=== PATIENT | male | born 1945 | race Caucasian/White ===

== ENCOUNTER 2019-09-29 00:27 | Day surgery (SDC) | payer MEDICARE, SELFPAY ==
[2019-09-17 14:16] VITALS: BMI 25.2
[2019-09-29] VITALS (7 sets, daily range): BP systolic 79–143; BP diastolic 43–109; PULSE 57–80; RESP 18; TEMP 36.2; O2SAT 97–100
[2019-09-29] MEDS: LACTATED RINGERS 1,000 ML 150 ML IV CONT (12:35)
--- NOTE | 2019-09-29 12:43 | WPDANESEPPF ---
Anes - Initial Pre Proc Eval Procedure: Operation Date: 09/29/19 13:00 Proposed Procedures p Esophagogastroduodenoscopy& Screening Colonoscopy - Javier Jason MD Date/Time: 09/29/19 12:43 Surgeon: Javier Jason MD Pre Op Diagnosis: Gerd,Diarrhea, Neoplasm Screening Patient Data Age: 73 Gender: M Height: 1.78 m Weight: 72.1 kg Last Vital Signs Temp 36.2 C L 09/29/19 12:02 Pulse 80 09/29/19 12:02 Resp 18 09/29/19 12:02 BP 143/109 H 09/29/19 12:02 Pulse Ox 99 09/29/19 12:02 Allergies Allergy/AdvReac Type Severity Reaction Status Date / Time erythromycin base Allergy Unknown Abdominal Verified 09/29/19 12:04 discomfort iodine Allergy Unknown Skin Verified 09/29/19 12:04 irritation iohexol Allergy Unknown Hives Verified 09/29/19 12:04 [From contrast - CT, X-RAY] Penicillins Allergy Unknown Skin Verified 09/29/19 12:04 irritation Home Medications Medication Instructions Recorded Confirmed Type azelastine 0.15 % (205.5 mcg) 1 spray NASAL BID ml 08/14/19 09/17/19 History nasal spray dabigatran etexilate 150 mg capsule 150 mg PO BID 08/14/19 09/29/19 History esomeprazole magnesium 40 mg 40 mg PO DAILY 08/14/19 09/17/19 History capsule,delayed release fluticasone propionate 50 1 spray NASAL BID 08/14/19 09/29/19 History mcg/actuation nasal spray,suspension metoprolol succinate 25 mg 25 mg PO DAILY 08/14/19 09/17/19 History tablet,extended release 24 hr pravastatin 40 mg tablet 40 mg PO DAILY 08/14/19 09/17/19 History sacubitril 24 mg-valsartan 26 mg 1 tablet PO BID 08/14/19 09/17/19 History tablet cetirizine 10 mg tablet 5 mg PO DAILY PRN 08/18/19 09/17/19 History Other Studies: echo 05/2018: afib, rate 99. ef 40%, stress negative for inducible ischemia Patient hx anesthesia problems: none Family hx anesthesia problems: none PMFSH Past Medical History Medical History (Updated 09/29/19 @ 12:46 by Roel Reis MD) Afib Cancer Basal cell -face, leg and arm CHF (congestive heart failure) Chronic systolic CHF (congestive heart failure) Complex sleep apnea syndrome Cough Diarrhea GERD (gastroesophageal reflux disease) Hypertension Mucus in stool PAC (premature atrial contraction) PAF (paroxysmal atrial fibrillation) Surgical History Surgical History H/O hernia repair History of cataract removal with insertion of prosthetic lens Social History Social History Smoking status: Never smoker Second hand tobacco smoke exposure: No Alcohol intake: former Substance use: never Substance use type: does not use Gender identity (if verbalized by the patient): Male Anes - Eval Final PreProcedure Day of Procedure 09/29/19 12:43 Patient weight: normal Heart: regular rate and rhythm Lungs: clear to auscultation and normal air movement Airway: Mallampati scale class II Neurological: alert and oriented Last oral intake: >/= 8 hours ASA classification: IV Emergent: no Anesthetic plan: proceed Anesthesia type and monitoring: general GIVS Informed Consent: The patient's anesthetic plan and its attendant risks and benefits were discussed with the patient/family/POA. Questions were solicited and answers provided to the satisfaction of the patient/family/POA.
--- NOTE | 2019-09-29 13:21 | WPDHPUPDATE1 ---
History and Physical Update Update Date/Time: 09/29/19 13:21 History and Physical has been reviewed, including an updated exam of the patient. There are NO changes in the patient's condition. Risks, benefits, and alternatives have been discussed and questions answered. Patient agrees to proceed with procedure.
--- NOTE | 2019-09-29 15:20 | SUR.PHASEII ---
1415 pt brought to pos-op bp low amarjit shaw at bedside-remains with pt giving meds. 1425 bp stable now, report recieved
== END 2019-09-29 15:25 | disposition home or self-care (01) ==
PROVIDERS: PCP Family Medicine; Visit Provider Internal Medicine Gastroenterology
PROC: 0DJ08ZZ Inspection of Upper Intestinal Tract, Via Natural or Artificial Opening Endoscopic (ICD-10-PCS; CPT 43235; principal; 2019-09-29 13:00)
DX: K52.9 Noninfective gastroenteritis and colitis, unspecified (principal); K63.5 Polyp of colon; K57.30 Diverticulosis of large intestine without perforation or abscess without bleeding; K64.8 Other hemorrhoids; K64.4 Residual hemorrhoidal skin tags; K29.50 Unspecified chronic gastritis without bleeding; I48.0 Paroxysmal atrial fibrillation; I11.0 Hypertensive heart disease with heart failure; I50.22 Chronic systolic (congestive) heart failure; G47.39 Other sleep apnea; K21.9 Gastro-esophageal reflux disease without esophagitis; I49.1 Atrial premature depolarization; Z79.01 Long term (current) use of anticoagulants
CPT/HCPCS: 45380; 45385; 88305; J2704; J7120

== ENCOUNTER 2019-11-17 13:24 | Outpatient (RCR) | payer SELFPAY | END 2020-06-09 14:22 | disposition home or self-care (01) | LOC: ANHCPRIII 13:24 | PROVIDERS: PCP Family Medicine; Visit Provider Internal Medicine Cardiovascular Disease | DX: I48.91 Unspecified atrial fibrillation (principal) | CPT/HCPCS: 99199 ==

== ENCOUNTER 2019-12-15 11:02 | Outpatient (CLI) | payer MEDICARE, SELFPAY ==
--- NOTE | ~2019-12-15 | XR_ITS ---
EXAMINATION: XR knee LT min 4V DATE: 12/15/2019 11:24 INDICATION: Left knee pain TECHNIQUE: Four views of the left knee were obtained. COMPARISON: None. FINDINGS: Alignment is normal. No fracture or osteochondral lesion. There is mild tricompartmental os teoarthritis characterized by tiny marginal osteophytes in medial compartmental narrowing. A moderate sized joint effusion is present. Soft tissues are unremarkable. IMPRESSION: 1. Mild osteoarthritis with moderate size joint effusion. Reviewed, dictated and finalized at location B.
== END 2019-12-15 11:03 | disposition home or self-care (01) ==
PROVIDERS: PCP Family Medicine; Visit Provider Family Medicine
DX: M17.11 Unilateral primary osteoarthritis, right knee (principal); M25.461 Effusion, right knee
CPT/HCPCS: 73564

== ENCOUNTER 2019-12-22 09:05 | Outpatient (CLI) | payer MEDICARE, SELFPAY ==
--- NOTE | ~2019-12-22 | MR_ITS ---
EXAMINATION: MR knee LT wo con DATE: 12/22/2019 10:20 INDICATION: Left knee pain TECHNIQUE: Magnetic resonance imaging (MRI) of the left knee was performed without intravenous contra st. Sequences included coronal PD-weighted FSE, coronal PD-weighted FS FSE, sagittal T2-weighted FSE , sagittal PD-weighted FS FSE and axial PD weighted fat saturated FSE. COMPARISON: Left knee radiographs dated 12/15/2019 FINDINGS: Medial compartment: Complex tear of the medial meniscus with decreased size and macerated appearance of the posterior hor n with a displaced meniscal flap extending cephalad from the body of the medial meniscus. Additional frayed appearing meniscal flap extending anteromedially from the posterior root of the medial meniscu s. There is extensive full and near full-thickness chondral ulceration with underlying subarticular e iglesia involving significant portion of the anterior to central weightbearing medial femoral condyle. P artial thickness cartilage loss with smooth chondral surface throughout the medial tibial plateau. Mo re severe full/near full-thickness cartilage loss with underlying subarticular edema at the medial as pect of the medial tibial plateau. Partial thickness cartilage loss with relatively smooth chondral s urface and without degenerative some reticular changes at the posterior weightbearing medial femoral condyle. Lateral compartment: Longitudinal horizontal tear of the body of the lateral meniscus which extends to the inferior articu lar surface of the inner third posteriorly and crosses the free edge to involve the superior articula r surface more anteriorly. Articular cartilage is normal. Patellofemoral compartment: Small region of deep chondral ulceration and fissuring with underlying subarticular edema along the p osterior margin of the lateral patellar facet. Remainder of the cartilage in the patellofemoral paula rtment appears relatively preserved. Ligaments and tendons: Anterior and posterior cruciate ligaments are normal. The fibular collateral ligament complex is norm al. There is fluid signal extending along the margins of the otherwise normal-appearing medial collat eral ligament most likely reactive related to the adjacent meniscal tear although differential would include acute low-grade sprain. The extensor mechanism is normal. The visualized medial and lateral h amstring tendons as well as the iliotibial band are normal. Fluid: Moderate-sized right knee joint effusion. Suprapatellar plical band is present. Mild synovitis in the suprapatellar pouch as well as along the posterior margin of Hoffa's fat pad. No loose osteochondral bodies identified. Additional synovitis within a small Gonzalez's cyst. Osseous/other: Bone alignment is normal. No fracture or pathologic marrow replacing process. Subcutaneous varicosities along the medial aspect of the knee. IMPRESSION: 1. Complex medial meniscal tear with moderate osteoarthritis with extensive high-grade chondromalacia in the medial compartment. 2. Longitudinal horizontal tear of the lateral meniscus. 3. Small region of high-grade chondromalacia along the inferior margin of the lateral patellar facet. 4. Likely reactive moderate sized knee joint effusion. 5. Small Gonzalez's cyst. 6. Fluid signal along the otherwise normal-appearing medial collateral ligament most likely reactive edema related to the adjacent medial meniscal tear however differential would include low-grade sprai n if there has been recent trauma. Reviewed, dictated and finalized at location A. IMPRESSION: 1. Complex medial meniscal tear with moderate osteoarthritis with extensive hig h-grade chondromalacia in the medial compartment. 2. Longitudinal horizontal tear of the lateral meniscus.
== END 2019-12-22 09:06 | disposition home or self-care (01) ==
LOC: ANHIMG 09:12
PROVIDERS: PCP Family Medicine; Visit Provider Family Medicine
DX: M25.562 Pain in left knee (principal); M23.52 Chronic instability of knee, left knee; S83.232A Complex tear of medial meniscus, current injury, left knee, initial encounter; M17.12 Unilateral primary osteoarthritis, left knee; M94.262 Chondromalacia, left knee; S83.282A Other tear of lateral meniscus, current injury, left knee, initial encounter; M25.462 Effusion, left knee; M71.22 Synovial cyst of popliteal space [Baker], left knee
CPT/HCPCS: 73721

== ENCOUNTER 2020-06-23 06:55 | Outpatient (CLI) | payer MEDICARE, SELFPAY ==
--- NOTE | ~2020-06-23 | MR_ITS ---
EXAMINATION: MR brain/brain stem wo con DATE: 06/23/2020 07:59 INDICATION: Unspecified nystagmus. Dizziness. Diplopia. TECHNIQUE: Magnetic resonance imaging (MRI) of the brain and brainstem was performed without intraven ous contrast. Sequences included sagittal and axial T1-weighted FSE, axial diffusion-weighted FS EPI, axial T2*-weighted GRE, axial T2-weighted FLAIR Propeller, and axial T2-weighted Propeller. Apparent diffusion coefficient (ADC) maps were created. COMPARISON: None. FINDINGS: There are scattered areas of nonspecific increased T2-weighted signal intensity in the cere bral white matter and cerebellar white matter. There is an area of cystic encephalomalacia in the rig ht frontal lobe deep white matter. There is no intracranial hemorrhage, acute infarction, or abnormal intracranial mass lesion. The ventricles are normal in size. There are likely changes of ocular lens replacement surgeries. There is mucosal thickening in the paranasal sinuses. The mastoid air cells a re normal. IMPRESSION: 1. Area of cystic encephalomalacia in the right frontal lobe deep white matter. 2. Moderate nonspecific cerebral and cerebellar white matter disease, which likely represents chronic small vessel ischemic disease. Reviewed, dictated and finalized at location A. IMPRESSION: 1. Area of cystic encephalomalacia in the right frontal lobe deep white matter. 2. Moderate nonspecific cerebral and cerebellar white matter disease, which lik stefany represents chronic small vessel ischemic disease.
== END 2020-06-23 06:56 | disposition home or self-care (01) ==
PROVIDERS: PCP Family Medicine; Visit Provider Family Medicine
DX: H55.00 Unspecified nystagmus (principal); R42 Dizziness and giddiness; G93.89 Other specified disorders of brain; R90.82 White matter disease, unspecified
CPT/HCPCS: 70551

== ENCOUNTER 2020-08-30 13:54 | Emergency (ER) | payer MEDICARE, SELFPAY | END 2020-08-30 14:00 | disposition left against medical advice (07) | LOC: EXPTROY 13:59 | PROVIDERS: Emergency Provider Nurse Practitioner; PCP Family Medicine | DX: Z53.21 Procedure and treatment not carried out due to patient leaving prior to being seen by health care provider (principal) | CPT/HCPCS: 99199 ==

== ENCOUNTER 2020-09-29 14:39 | Outpatient (CLI) | payer MEDICARE, SELFPAY ==
--- NOTE | ~2020-09-29 | XR_ITS ---
EXAMINATION: XR chest 2V DATE: 09/29/2020 15:14 INDICATION: Abnormal findings on diagnostic imaging. TECHNIQUE: Frontal and lateral views of the chest were obtained. COMPARISON: Chest 2 views 01/21/2019 FINDINGS: There is mild scarring at the lung apices. No pleural effusion or pneumothorax. The heart s ize is normal. IMPRESSION: 1. Mild scarring at the lung apices. Reviewed, dictated and finalized at location A. ER BENCH
== END 2020-09-29 14:40 | disposition home or self-care (01) ==
PROVIDERS: PCP Family Medicine; Visit Provider Family Medicine
DX: E78.2 Mixed hyperlipidemia (principal); R93.89 Abnormal findings on diagnostic imaging of other specified body structures; I50.22 Chronic systolic (congestive) heart failure; I11.9 Hypertensive heart disease without heart failure; I48.0 Paroxysmal atrial fibrillation; N40.1 Benign prostatic hyperplasia with lower urinary tract symptoms; K21.9 Gastro-esophageal reflux disease without esophagitis; Z11.59 Encounter for screening for other viral diseases; Z79.899 Other long term (current) drug therapy; R92.8 Other abnormal and inconclusive findings on diagnostic imaging of breast
CPT/HCPCS: 71046

== ENCOUNTER → 2021-03-20 07:55 | Outpatient (CLI) | payer MEDICARE, SELFPAY ==
--- NOTE | ~2021-03-20 | MR_ITS ---
EXAMINATION: MR knee RT wo con DATE: 03/20/2021 08:37 INDICATION: Generalized right knee pain and swelling TECHNIQUE: Magnetic resonance imaging (MRI) of the right knee was performed without intravenous contr ast. Sequences included coronal PD-weighted FSE, coronal PD-weighted FS FSE, sagittal T2-weighted FS E, sagittal PD-weighted FS FSE and axial PD weighted fat saturated FSE. COMPARISON: Right knee radiographs dated 01/09/2021 FINDINGS: Medial compartment: Complex medial meniscal tear which includes a longitudinal tear extending obliquely from the peripher y to the inferior articular surface at the junction of the medial and peripheral thirds of the bi report developer ior horn and posterior body of the medial meniscus. There is also a small displaced meniscal flap whi ch extends anteriorly from the region of the posterior horn likely arising from the more anterior inf erior surface of the posterior horn. Partial-thickness cartilage loss with smooth chondral surface al jesse the peripheral margins of the medial tibial plateau. Lateral compartment: Small complex tear at the body of the lateral meniscus which includes a longitudinal horizontal tear extending to the cephalad articular surface near the free edge as well as a small vertically longitud inal component near the free edge. Small region of deep chondral fissuring at the lateral tibial plat eau underlying the posterior horn of the meniscus. Partial-thickness cartilage loss with smooth chond ral surface along the posterior weightbearing lateral femoral condyle. Patellofemoral compartment: Deep chondral ulceration in places appearing full-thickness with underlying mild cortical irregularit y and prominent subarticular edema at the cephalad aspect of the lateral trochlea and caudal and late ral two thirds of the lateral patellar facet. The medial trochlea and medial patellar facet are myla l. Ligaments and tendons: Anterior and posterior cruciate ligaments are normal. The medial collateral ligament and fibular ignacia ateral ligament complex are normal. The extensor mechanism is normal. The visualized medial and later al hamstring tendons as well as the iliotibial band are normal. Fluid: Moderate-sized right knee joint effusion. Small ovoid likely loose chondral bodies in the recess ante rior and posterior to the intercondylar notch comment each measuring approximately 9-10 mm in maximal length. Osseous/other: There is mild lateral patellar tilt and subluxation. No fracture or pathologic marrow replacing proce ss. Small intraosseous ganglion cyst at the anterior aspect of the tibia near the footplate of the an terior cruciate ligament. IMPRESSION: 1. Complex tears of the medial and lateral menisci. 2. Tricompartmental osteoarthritis, moderate severity with high-grade chondromalacia at the lateral s raissa of the patellofemoral compartment and small amount of moderate grade chondromalacia in the medial and lateral compartments. 3. Moderate-sized right knee joint effusion. Reviewed, dictated and finalized at location A. IMPRESSION: 1. Complex tears of the medial and lateral menisci. 2. Tricompartmental osteoarthritis, moderate severity with high-grade chondroma lacia at the lateral side of the patellofemoral compartment and small amount of moderate grade chondromalacia in the medial and lateral compartments. 3. Moderate-sized right knee joint effusion.
== END ==
PROVIDERS: PCP Family Medicine; Visit Provider Nurse Practitioner Family
DX: M25.561 Pain in right knee (principal); M17.11 Unilateral primary osteoarthritis, right knee; S83.271A Complex tear of lateral meniscus, current injury, right knee, initial encounter; S83.231A Complex tear of medial meniscus, current injury, right knee, initial encounter; M94.261 Chondromalacia, right knee; M25.461 Effusion, right knee
CPT/HCPCS: 73721

== ENCOUNTER → 2021-05-03 12:47 | Outpatient (CLI) | payer MEDICARE, SELFPAY ==
--- NOTE | ~2021-05-03 | CT_ITS ---
EXAMINATION: CT abdomen pelvis wo/w con DATE: 05/03/2021 13:42 INDICATION: Microscopic hematuria. TECHNIQUE: Computed tomography (CT) of the abdomen and pelvis was performed without and with intraven ous contrast using a total of 130 mL Omnipaque-350 intravenous contrast with a double-bolus technique for simultaneous opacification of the renal parenchyma and renal collecting system. Automated exposu re control and iterative reconstruction technique were employed. The dose-length product was 1403.34 mGy-cm. COMPARISON: None FINDINGS: The visualized portions of the lung bases demonstrate mild atelectasis and mild chronic lung disease. No pleural effusion. The heart size is normal. No pericardial effusion. There is a 13 mm cyst in the liver. The gallbladder, spleen, pancreas, and adrenal glands are normal. There is a 2.0 cm cyst in r ight kidney. There are 2.0 cm and 5.1 cm enhancing masses in right kidney. There is a 2.4 cm enhancin g mass in left kidney. The ureters are well opacified and are normal. The bladder is not well distend ed. The prostate is mildly enlarged. There is a right inguinal hernia containing fat. There is divert iculosis of the colon without evidence of diverticulitis. There are no dilated loops of bowel. The ap pendix is normal. There are no pathologically enlarged lymph nodes. There is no free intraperitoneal fluid. There is mild thoracic spondylosis and moderate lumbar spondylosis. There is a chronic left L5 pars defect. IMPRESSION: 1. Two enhancing right kidney masses and an enhancing left kidney mass, consistent with renal cell ca rcinoma. Reviewed, dictated and finalized at location A. IMPRESSION: 1. Two enhancing right kidney masses and an enhancing left kidney mass, consist ent with renal cell carcinoma.
[2021-05-03 13:17] LABS: Estimated Glomerular Filt Rate 59
== END ==
PROVIDERS: PCP Family Medicine; Visit Provider Urology
DX: R31.29 Other microscopic hematuria (principal); N28.89 Other specified disorders of kidney and ureter; K40.90 Unilateral inguinal hernia, without obstruction or gangrene, not specified as recurrent; K57.30 Diverticulosis of large intestine without perforation or abscess without bleeding; M47.815 Spondylosis without myelopathy or radiculopathy, thoracolumbar region
CPT/HCPCS: 74178; Q9967

== ENCOUNTER 2021-07-10 16:08 | Emergency (ER) | payer MEDICARE, SELFPAY ==
--- NOTE | ~2021-07-10 | XR_ITS ---
EXAMINATION: XR chest 2V EXAM DATE: 07/10/2021 17:31 INDICATION: Cough and congestion. TECHNIQUE: Frontal and lateral projections of the chest obtained and reviewed. Comparison is made to prior examination from 09/29/2020. FINDINGS: The lungs are clear. There are no pleural effusions. The cardiomediastinal silhouette is within normal limits. There is no pneumothorax suspected. The bones and soft tissues are unremarkab le. IMPRESSION: No acute cardiopulmonary findings. Reviewed, dictated and finalized at location A. MANAGER
[2021-07-10 16:28] VITALS: BP 111/65; PULSE 65; RESP 18; TEMP 37.1; O2SAT 97
--- NOTE | 2021-07-10 17:37 | ED.URI ---
HPI - URI/Sore Throat General Chief Complaint: Upper Respiratory Infection Stated Complaint: cough/sneezing/congestion Time Seen by Provider: 07/10/21 17:37 Source: patient, RN notes reviewed and old records reviewed Mode of arrival: ambulatory Limitations: no limitations History of Present Illness HPI Narrative: 75 year old male who presents to [facility] care with complaints of one week duration of cough, nasal congestion with expectoration of greenish yellow mucous at times with frequent sneezing.Patient states that he is concerned because of his history of CHF and pneumonia and doesn't want to get down ill. Patient reports that he has been using nasal saline and Debbie for his sinus congestion and drainage, reports some wheezing noted with his cough but denies any feelings of shortness of breath. Patient has had COVID vaccinations and booster. MD elicited complaint: cough, rhinorrhea and nasal congestion Pertinent past history: pneumonia and other (CHF) Onset (ago): week(s) (1) Related Data Home Medications Medication Instructions Recorded Confirmed dabigatran etexilate 150 mg capsule 150 mg PO BID 08/14/19 07/10/21 metoprolol succinate 25 mg 25 mg PO DAILY 08/14/19 07/10/21 tablet,extended release 24 hr pravastatin 40 mg tablet 40 mg PO DAILY 08/14/19 07/10/21 dronedarone 400 mg tablet 400 mg PO BID tablet 02/16/20 07/10/21 cetirizine 10 mg tablet 10 mg PO DAILY 02/16/21 07/10/21 cholecalciferol (vitamin D3) 1,250 1,250 mcg PO WEEKLY 02/16/21 07/10/21 mcg (50,000 unit) capsule Allergies Allergy/AdvReac Type Severity Reaction Status Date / Time erythromycin base Allergy Intermediate Abdominal Verified 07/10/21 18:23 discomfort iodine Allergy Mild Skin Verified 07/10/21 18:23 irritation iohexol Allergy Mild Hives Verified 07/10/21 18:23 [From contrast - CT, X-RAY] Penicillins Allergy Mild Skin Verified 07/10/21 18:23 irritation Review of Systems Review of Systems: CONSTITUTIONAL: Denies fever, chills, or sweats. EYES: Denies visual changes, redness, or discharge. ENT:Positive for rhinorrhea, congestion,no sore throat, or otalgia. CARDIOVASCULAR: Denies chest pain, palpitations, or edema. RESPIRATORY:Positive for cough denies dyspnea. GASTROINTESTINAL: Denies abdominal pain, nausea, vomiting, or diarrhea. GENITOURINARY: Denies dysuria or hematuria. SKIN: Denies rash or itching. MUSCULOSKELETAL: Denies back pain,no acute joint pain, or myalgia. NEUROLOGIC: Denies headache, numbness, or weakness. PSYCHIATRIC: Denies anxiety or depression. 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 Diarrhea Effusion, left knee GERD (gastroesophageal reflux disease) Hypertension Left knee DJD Left knee DJD Mucus in stool PAC (premature atrial contraction) PAF (paroxysmal atrial fibrillation) Primary osteoarthritis of right knee Right knee DJD Right knee pain Vertigo Surgical History Surgical History H/O hernia repair History of cataract removal with insertion of prosthetic lens 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
== END 2021-07-10 18:10 | disposition home or self-care (01) ==
PROVIDERS: Emergency Provider Registered Nurse; PCP Family Medicine
DX: J40 Bronchitis, not specified as acute or chronic (principal); Z85.828 Personal history of other malignant neoplasm of skin; I11.0 Hypertensive heart disease with heart failure; I50.9 Heart failure, unspecified; M17.0 Bilateral primary osteoarthritis of knee; K21.9 Gastro-esophageal reflux disease without esophagitis; I48.0 Paroxysmal atrial fibrillation; Z98.49 Cataract extraction status, unspecified eye; Z96.1 Presence of intraocular lens
CPT/HCPCS: 71046; 99213; G0463

== ENCOUNTER 2021-07-17 12:31 | Emergency (ER) | payer MEDICARE, SELFPAY ==
[2021-07-17 12:37] VITALS: BP 109/68; PULSE 64; RESP 16; TEMP 36.8; O2SAT 97
--- NOTE | 2021-07-17 12:37 | ED.UPPEXIN ---
HPI - Extremity Injury (Upper) General Chief Complaint: Wound/Laceration Stated Complaint: rt hand swollen Time Seen by Provider: 07/17/21 12:38 Source: patient and RN notes reviewed History of Present Illness HPI narrative: Patient is a 75-year-old male who presents the urgent care with complaints of right hand swelling and pain. Patient states that he was hunting this past weekend and noticed the swelling to the right hand. Patient believes it is infected . Patient states that this has happened in the past. Patient denies of any known injury to the hand. Patient is right-hand dominant. Denies of any fever, chills, nausea, vomiting. Patient has not taken anything [id number] for his symptoms. No other acute complaints. No acute distress noted. Patient aware of the plan of care. Some parts of this dictation were generated by voice recognition software and may contain typographical and/or grammatical inaccuracies. Related Data Home Medications Medication Instructions Recorded Confirmed metoprolol succinate 25 mg 25 mg PO DAILY 08/14/19 07/17/21 tablet,extended release 24 hr pravastatin 40 mg tablet 40 mg PO DAILY 08/14/19 07/17/21 cetirizine 10 mg tablet 10 mg PO DAILY 02/16/21 07/17/21 cholecalciferol (vitamin D3) 1,250 1,250 mcg PO WEEKLY 02/16/21 07/17/21 mcg (50,000 unit) capsule dabigatran etexilate [Pradaxa] 150 mg PO DAILY 07/17/21 07/17/21 dronedarone [Multaq] 400 mg PO DAILY 07/17/21 07/17/21 sacubitril-valsartan [Entresto] 1 tablet PO DAILY 07/17/21 07/17/21 Allergies Allergy/AdvReac Type Severity Reaction Status Date / Time erythromycin base Allergy Intermediate Abdominal Verified 07/17/21 12:44 discomfort iodine Allergy Mild Skin Verified 07/17/21 12:44 irritation iohexol Allergy Mild Hives Verified 07/17/21 12:44 [From contrast - CT, X-RAY] Penicillins Allergy Mild Skin Verified 07/17/21 12:44 irritation Review of Systems Review of Systems: CONSTITUTIONAL: Denies fever, chills, or sweats. EYES: Denies visual changes, redness, or discharge. ENT: Denies rhinorrhea, congestion, sore throat, or otalgia. CARDIOVASCULAR: Denies chest pain, palpitations, or edema. RESPIRATORY: Denies cough or dyspnea. GASTROINTESTINAL: Denies abdominal pain, nausea, vomiting, or diarrhea. GENITOURINARY: Denies dysuria or hematuria. SKIN: Denies rash or itching. MUSCULOSKELETAL: Reports of pain and swelling to the right hand NEUROLOGIC: Denies headache, numbness, or weakness. All other systems reviewed are negative, except as documented in HPI. 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 Diarrhea Effusion, left knee GERD (gastroesophageal reflux disease) Hypertension Left knee DJD Left knee DJD Mucus in stool PAC (premature atrial contraction) PAF (paroxysmal atrial fibrillation) Primary osteoarthritis of right knee Right knee DJD Right knee pain Vertigo Surgical History Surgical History H/O hernia repair History of cataract removal with insertion of prosthetic lens 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
== END 2021-07-17 13:09 | disposition home or self-care (01) ==
PROVIDERS: Emergency Provider Nurse Practitioner Family; PCP Family Medicine
DX: M19.90 Unspecified osteoarthritis, unspecified site (principal); I48.91 Unspecified atrial fibrillation; Z85.828 Personal history of other malignant neoplasm of skin; I11.0 Hypertensive heart disease with heart failure; I50.9 Heart failure, unspecified; G47.39 Other sleep apnea; M17.0 Bilateral primary osteoarthritis of knee; K21.9 Gastro-esophageal reflux disease without esophagitis; I48.0 Paroxysmal atrial fibrillation
CPT/HCPCS: 99213; G0463

== ENCOUNTER 2022-03-19 13:32 | Outpatient (CLI) | payer MEDICARE, SELFPAY ==
--- NOTE | ~2022-03-19 | CT_ITS ---
EXAMINATION:CT diagnostic chest wo con DATE: 03/19/2022 14:18 INDICATION: Chronic cough. TECHNIQUE: Computed tomography (CT) of the chest was performed without intravenous contrast. Automate d exposure control and iterative reconstruction technique were employed. The dose-length product (DLP ) was 172.43 mGy-cm. COMPARISON: CT abdomen and pelvis 05/03/2021 FINDINGS: There is mild scarring at the lung apices. There is mild bronchiectasis in the inferior urmila gs. There is septal thickening in the inferior lungs bilaterally associated with mild groundglass opa cities. No honeycombing. No pleural effusion. The heart size is normal. No pericardial effusion. Ther e is a 1.5 cm cyst in the liver. There is mild thoracic spondylosis. There is mild chronic anterior w edging of multiple vertebral bodies. IMPRESSION: 1. Mild chronic interstitial lung disease in a pattern of nonspecific interstitial pneumonia (NSIP). Reviewed, dictated and finalized at location A. IMPRESSION: 1. Mild chronic interstitial lung disease in a pattern of nonspecific interstit ial pneumonia (NSIP).
== END 2022-03-19 13:33 | disposition home or self-care (01) ==
PROVIDERS: PCP Family Medicine; Visit Provider Family Medicine
DX: R05.3 Chronic cough (principal); K76.89 Other specified diseases of liver; M47.814 Spondylosis without myelopathy or radiculopathy, thoracic region; J84.89 Other specified interstitial pulmonary diseases
CPT/HCPCS: 71250

== ENCOUNTER 2022-03-26 10:22 | Outpatient (CLI) | payer MEDICARE, SELFPAY ==
--- NOTE | 2022-04-02 14:53 | WPDPFTINT ---
PFT Procedure Performed PFT Procedure Performed Spirometry with Pre/Post Bronchodilator Plethysmography (Lung Vol) Diffusing Cap (DLCO) Flow Vol Loop PFT Interpretation This is a pulmonary function test with pre and post-bronchodilator spirometry, plethysmography and diffusing capacity. The test was performed and results interpreted in accordance with the 2019 and 2005 ATS/ERS Task Force guidelines respectively using the Global Lung Function Initiative-2012 reference equations. Patient demonstrated good effort and cooperation. Reproducibility criteria were met. The quality of the pre bronchodilator spirometry maneuver was Grade B and post bronchodilator spirometry maneuver was Grade A. Findings: Spirometry: There is decreased maximal expiratory airflow at low lung volumes with a concave expiratory flow tracing. The contour the inspiratory flow tracing is normal. The pre bronchodilator FVC is 4.52 L, 111% predicted. The pre bronchodilator FEV1 is 2.89 L, 96% predicted. The pre bronchodilator FEV1: FVC ratio is 64%. The post bronchodilator FVC is 4.59 L, representing 1% increase. The post bronchodilator FEV1 is 2.84 L, representing a 2% decrease. The post bronchodilator FEV1: FVC ratio 62%. Plethysmography: The total lung capacity 7.26 L, 100% predicted. The functional residual capacity is 4.02 L, 103% predicted. The residual volume is 2.74 L, 103% predicted. Diffusion capacity: The diffusing capacity unadjusted for hemoglobin and carboxyhemoglobin is 21.3, 86% predicted. The diffusing capacity adjusted for alveolar volume is 3.58, 99% predicted. Impression: There is a mild obstructive abnormality with a normal FEV1 and without significant improvement after inhaling a single dose of albuterol. The lung volumes are normal. The diffusing capacity is normal. There are no prior studies for comparison
== END 2022-03-26 10:23 | disposition home or self-care (01) ==
PROVIDERS: PCP Family Medicine; Visit Provider Family Medicine
DX: R05.3 Chronic cough (principal); R94.2 Abnormal results of pulmonary function studies
CPT/HCPCS: 94060; 94726; 94729

== ENCOUNTER 2022-04-06 09:03 | Outpatient (CLI) | payer MEDICARE, SELFPAY ==
[2022-04-06 20:10] LABS: Alanine Aminotransferase 18 U/L (6-50); Albumin Level 4.2 g/dL (3.5-5.1); Alkaline Phosphatase 54 U/L (38-126); Anion Gap 9 mmol/L (8-16); Aspartate Amino Transferase 36 U/L (17-59); Bilirubin,Total 0.8 mg/dL (0.2-1.3); Blood Urea Nitrogen 15 mg/dL (9-20); Calcium 8.9 mg/dL (8.4-10.2); Carbon Dioxide 28 mmol/L (22-30); Chloride 104 mmol/L (98-107); Cholesterol 156 mg/dL (0-200); Estimated Glomerular Filt Rate > 60; Glucose 92 mg/dL (65-110); HDL Direct 33 mg/dL; Potassium 4.4 mmol/L (3.4-5.0); Sodium 141 mmol/L (137-145); Triglycerides 143 mg/dL (<150)
[2022-04-06 20:22] LABS: LDL Cholesterol Direct 91 mg/dL
[2022-04-06 20:36] LABS: Prostate Specific Antigen 2.1 ng/mL (< OR = 4.0)
[2022-04-06 21:04] LABS: Basophils Absolute Auto 0.1 K/mm3 (0.0-0.1); Basophils Percent Auto 1.2 % (0.2-1.2); Eosinophils Absolute Auto 0.3 K/mm3 (0-0.3); Eosinophils Percent Auto 6.3 % (0-4.4); Hemoglobin 13.7 g/dL (14.0-18.0); Immature Granulocyte Absolute 0.01 K/mm3 (0.00-0.031); Immature Granulocyte Percent A 0.2 % (0-0.5); Lymphocytes Absolute Auto 1.44 K/mm3 (0.9-3.2); Lymphocytes Percent Auto 33.5 % (18.3-44.2); Mean Corpuscular HGB Conc 32.6 g/dl (32-36); Mean Corpuscular Hemoglobin 31.5 pg (26-34); Mean Corpuscular Volume 96.6 fl (80-100); Mean Platelet Volume 10.1 fl (7.4-10.4); Monocytes Absolute Auto 0.5 K/mm3 (0.1-0.6); Monocytes Percent Auto 11.2 % (2.6-8.5); Neutrophils Absolute Auto 2.1 K/mm3 (1.3-6.7); Neutrophils Percent Auto 47.6 % (45.5-73.1); Platelet Count Result 222 k/mm3 (150-375); Red Blood Count 4.35 M/mm3 (4.6-6.20); Red Cell Distribution Width 13.3 % (11.5-14.5); White Blood Count 4.3 K/mm3 (4.5-10.0)
== END 2022-04-06 09:04 | disposition home or self-care (01) ==
LOC: ANHGOSHLAB 09:04
PROVIDERS: PCP Family Medicine; Visit Provider Physician Assistant
DX: Z12.5 Encounter for screening for malignant neoplasm of prostate (principal); I35.0 Nonrheumatic aortic (valve) stenosis; E78.2 Mixed hyperlipidemia; I11.9 Hypertensive heart disease without heart failure; Z79.899 Other long term (current) drug therapy
CPT/HCPCS: 36415; 80053; 80061; 84153; 84443; 85025; G0103

== ENCOUNTER 2022-04-11 15:16 | Outpatient (NON) | payer MEDICARE, SELFPAY ==
[2022-04-11 20:08] LABS: IFOB Positive Control Positive; Immunochemical Fecal Occult Bl Negative (N)
== END 2022-04-11 15:17 | disposition home or self-care (01) ==
LOC: ANHGOSHLAB 15:17
PROVIDERS: PCP Family Medicine; Visit Provider Physician Assistant
DX: D64.9 Anemia, unspecified (principal)
CPT/HCPCS: 82274

== ENCOUNTER 2022-04-25 17:22 | Emergency (ER) | payer MEDICARE, SELFPAY ==
--- NOTE | 2022-04-25 17:25 | ED.SKABFB ---
HPI - Skin/Abscess/Foreign Bdy General Chief complaint: Skin/Abscess/Foreign Body Stated complaint: ITCHING RASH Time Seen by Provider: 04/25/22 17:23 Source: patient Mode of arrival: ambulatory Limitations: no limitations History of Present Illness HPI narrative: Mr. Iniguez is a 76-year-old male patient presenting to the clinic today with complaints of a itchy rash. He reports Related Data Home Medications Medication Instructions Recorded Confirmed metoprolol succinate 25 mg 25 mg PO DAILY 08/14/19 04/25/22 tablet,extended release 24 hr pravastatin 40 mg tablet 40 mg PO DAILY 08/14/19 04/25/22 cetirizine 10 mg tablet (24Hour 10 mg PO DAILY 02/16/21 04/25/22 Allergy) cholecalciferol (vitamin D3) 1,250 1,250 mcg PO WEEKLY 02/16/21 04/25/22 mcg (50,000 unit) capsule dabigatran etexilate 150 mg 150 mg PO BID 02/16/22 04/25/22 capsule (Pradaxa) dronedarone 400 mg tablet (Multaq) 400 mg PO BID 02/16/22 04/25/22 sacubitril 24 mg-valsartan 26 mg 0.5 tablet PO BID 02/16/22 04/25/22 tablet (Entresto) tadalafil 20 mg tablet 20 mg PO DAILY PRN Erectile 04/03/22 04/25/22 Dysfunction Allergies Allergy/AdvReac Type Severity Reaction Status Date / Time erythromycin base Allergy Intermediate Abdominal Verified 04/25/22 17:39 discomfort iodine Allergy Mild Skin Verified 04/25/22 17:39 irritation iohexol Allergy Mild Hives Verified 04/25/22 17:39 [From contrast - CT, X-RAY] Penicillins Allergy Mild Skin Verified 04/25/22 17:39 irritation Review of Systems Review of Systems: Pertinent positives per HPI. Patient denies any fever, chills, headache, visual changes, dizziness, cough, runny nose, sore throat, shortness of breath, chest pain, palpitations, nausea, vomiting, diarrhea, constipation, abdominal pain, or any urinary issues. 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 Renal oncocytoma Family History Family History Sibling Family history of transient ischemic attacks Family history of pulmonary embolism Mother Family history of congestive heart failure Social History Social History Smoking status: Never smoker Second hand tobacco smoke exposure: Yes Alcohol intake: former Alcohol use details: Stopped in 2017 Substance use: never Substance use type: does not use Gender identity (if verbalized by the patient): Male Comments At the time of my signature, I reviewed and agree with the nursing past medical, surgical, social, and family history. There is no relevant family history pertinent to the patient complaint. Exam Narrative: General: Well-developed, well nourished, in no apparent distress Head: Normocephalic, atraumatic. Cardio: Regular rate and rhythm, s1 and s2 normal, no murmur appreciated. Resp: Clear to auscultation bilaterally, no rhonchi, rales, wheezing or rubs. Integumentary: [place], warm, and dry, intact without lesion, no rashes. Course Course Emergency Course: Portions of this record may have been create
[2022-04-25 17:30] VITALS: BP 123/82; PULSE 63; RESP 16; TEMP 36.7; O2SAT 98
[2022-04-25] MEDS: TETANUS,DIPHTHERIA,AC PERTUSSIS ADULT (0.5 ML) BOOSTRIX IM (17:56)
== END 2022-04-25 18:05 | disposition home or self-care (01) ==
PROVIDERS: Emergency Provider Nurse Practitioner Family; PCP Family Medicine
DX: L23.7 Allergic contact dermatitis due to plants, except food (principal); I11.0 Hypertensive heart disease with heart failure; I50.9 Heart failure, unspecified; K21.9 Gastro-esophageal reflux disease without esophagitis; M17.0 Bilateral primary osteoarthritis of knee; I48.0 Paroxysmal atrial fibrillation; Z85.828 Personal history of other malignant neoplasm of skin; Z98.49 Cataract extraction status, unspecified eye; Z96.1 Presence of intraocular lens
CPT/HCPCS: 90471; 90715; 99213; G0463

== ENCOUNTER 2022-05-29 10:20 | Emergency (ER) | payer MEDICARE, SELFPAY ==
[2022-05-29 10:31] VITALS: BP 114/77; PULSE 73; RESP 16; TEMP 36.9; O2SAT 98
--- NOTE | 2022-05-29 10:35 | ED.ABDPAIN ---
HPI - Abdominal Pain General Chief Complaint: Abdominal Pain Stated Complaint: groin pain rt side Time Seen by Provider: 05/29/22 10:35 Source: patient and RN notes reviewed Mode of arrival: ambulatory Limitations: no limitations History of Present Illness HPI narrative: 76-year-old male presented for complaint of right inguinal pain for 1 week. Endorses pain is intermittent, described as dull and pressure, worse with sneezing, coughing, or walking. Pain radiates to penis. He endorses holding the site during any of these activities. He denies known injury/trauma. Reports lifting a trailer about 2 weeks prior to onset. Currently denies swelling/mass, bruising or discoloration to the site. Endorses chronic diarrhea. Denies decreased appetite, nausea, vomiting, hematochezia, melena, urinary complaints, fever or chills. He has not taken anything for pain. He has a history of left inguinal hernia repair in . PCP is out of town. Hx Afib, CHF, JOHANNE. Related Data Home Medications Medication Instructions Recorded Confirmed metoprolol succinate 25 mg 25 mg PO DAILY 08/14/19 04/25/22 tablet,extended release 24 hr pravastatin 40 mg tablet 40 mg PO DAILY 08/14/19 04/25/22 cetirizine 10 mg tablet (24Hour 10 mg PO DAILY 02/16/21 04/25/22 Allergy) cholecalciferol (vitamin D3) 1,250 1,250 mcg PO WEEKLY 02/16/21 04/25/22 mcg (50,000 unit) capsule dabigatran etexilate 150 mg 150 mg PO BID 02/16/22 04/25/22 capsule (Pradaxa) dronedarone 400 mg tablet (Multaq) 400 mg PO BID 02/16/22 04/25/22 sacubitril 24 mg-valsartan 26 mg 0.5 tablet PO BID 02/16/22 04/25/22 tablet (Entresto) tadalafil 20 mg tablet 20 mg PO DAILY PRN Erectile 04/03/22 04/25/22 Dysfunction Allergies Allergy/AdvReac Type Severity Reaction Status Date / Time erythromycin base Allergy Intermediate Abdominal Verified 04/25/22 17:39 discomfort iodine Allergy Mild Skin Verified 04/25/22 17:39 irritation iohexol Allergy Mild Hives Verified 04/25/22 17:39 [From contrast - CT, X-RAY] Penicillins Allergy Mild Skin Verified 04/25/22 17:39 irritation Review of Systems Review of Systems: CONSTITUTIONAL: Denies body aches, fever, chills ENT: Denies rhinorrhea, congestion CARDIOVASCULAR: Denies chest pain, palpitations, or edema. RESPIRATORY: Denies cough or dyspnea. GASTROINTESTINAL: Endorses right lower abdominal pain, Denies nausea, vomiting, diarrhea. GENITOURINARY: Denies dysuria, hematuria, or CVA tenderness. SKIN: Denies rash, itching, or wounds. MUSCULOSKELETAL: Denies joint pain, or myalgia. NEUROLOGIC: Denies headache, numbness, tingling, or weakness. 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 Diarrhea Effusion, left knee GERD (gastroesophageal reflux disease) Hypertension Left knee DJD Left knee DJD Mucus in stool PAC (premature atrial contraction) PAF (paroxysmal atrial fibrillation) Primary osteoarthritis of right knee Right knee DJD Right knee pain Vertigo Surgical History Surgical History H/O hernia repair History of cataract removal with insertion of prosthetic lens 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 Family History Family History Sibling Family history of transient ischemic attacks Family history of pulmonary embolism Mother Family history of congestive heart failure Social History Social History Smoking status: [place]
== END 2022-05-29 11:02 | disposition home or self-care (01) ==
PROVIDERS: Emergency Provider Nurse Practitioner Family; PCP Family Medicine
DX: R10.31 Right lower quadrant pain (principal); I11.0 Hypertensive heart disease with heart failure; I50.9 Heart failure, unspecified; K21.9 Gastro-esophageal reflux disease without esophagitis; M17.0 Bilateral primary osteoarthritis of knee; I48.0 Paroxysmal atrial fibrillation; Z85.828 Personal history of other malignant neoplasm of skin
CPT/HCPCS: 99211; G0463

== ENCOUNTER 2022-05-29 13:30 | Emergency (ER) | payer MEDICARE, SELFPAY ==
--- NOTE | ~2022-05-29 | CT_ITS ---
EXAMINATION: CT abdomen pelvis wo con DATE: 05/29/2022 14:37 INDICATION: Right groin and flank pain. TECHNIQUE: Computed tomography (CT) of the abdomen and pelvis was performed without intravenous contr ast. Automated exposure control and iterative reconstruction technique were employed. The dose-length product was 372.29 mGy-cm. COMPARISON: CT abdomen and pelvis 05/03/2021 FINDINGS: The visualized portions of the lung bases demonstrate mild atelectasis and mild bronchiecta sis. No pleural effusion. The heart size is normal. No pericardial effusion. There is an 18 mm cyst i n the liver. The gallbladder, spleen, pancreas, and adrenal glands are normal. There is a 5.3 cm mass in right kidney that enhanced on the prior CT. There is a 2.2 cm mass in right kidney that enhanced on the prior CT. There is a 2.5 cm cyst in right kidney. There is a 2.7 cm mass in left kidney that e nhanced on the prior CT. There is a right inguinal hernia containing nonobstructed small bowel. The p rostate is mildly enlarged. There is diverticulosis of the colon without evidence of diverticulitis. The appendix is normal. There are no pathologically enlarged lymph nodes. There is no free intraperit butler fluid. There is lumbar levoscoliosis and moderate spondylosis. IMPRESSION: 1. Right inguinal hernia containing nonobstructed small bowel. 2. Two right kidney masses and a left kidney mass that enhanced on the prior CT, consistent with jacqueline l cell carcinoma. Reviewed, dictated and finalized at location A. IMPRESSION: 1. Right inguinal hernia containing nonobstructed small bowel. 2. Two right kidney masses and a left kidney mass that enhanced on the prior CT , consistent with renal cell carcinoma.
--- NOTE | ~2022-05-29 | XR_ITS ---
EXAMINATION: XR toe 2nd RT min 2V INDICATION: Right second toe pain, initial encounter TECHNIQUE: Three views of the right second digit are obtained. COMPARISON: None available FINDINGS: There is a small acute, traumatic, closed, oblique intra-articular fracture at the dorsal b ase of the second middle phalanx. No additional fracture is identified. Soft tissue swelling is prese nt in the second toe. There is mild osteoarthritis of multiple interphalangeal joints as well as at t he first metatarsophalangeal joint. IMPRESSION: 1. Small acute intra-articular fracture at the dorsal base of the second middle phalanx. Reviewed, dictated and finalized at location A.
[2022-05-29 13:54] VITALS: BP 117/88; PULSE 60; RESP 16; TEMP 36.6; O2SAT 99
[2022-05-29 15:04] LABS: Appearance Urine Slightly Cloudy (Clear); Bilirubin Urine Negative (Negative); Blood Urine Negative (Negative); Color Urine Yellow (Yellow); Glucose Urine UA Negative (Negative); Ketones Urine Negative (Negative); Leukocyte Esterase Ur Trace LEU/UL (Negative); Nitrate Urine Negative (Negative); Protein Urine Negative (Negative); Urobilinogen Urine 0.2 mg/dL (<2.0)
[2022-05-29 15:12] LABS: Mucus Urine Rare /lpf; RBC Urine 0-2 /hpf (0-2); WBC Urine 0-3 /hpf
[2022-05-29 15:15] LABS: Add Urine Microscopic? YES; Anion Gap 13 mmol/L (8-16); Blood Urea Nitrogen 12 mg/dL (9-20); Calcium 8.9 mg/dL (8.4-10.2); Carbon Dioxide 27 mmol/L (22-30); Chloride 102 mmol/L (98-107); Estimated CRCL calculation 61 ml/min; Estimated Glomerular Filt Rate > 60; Glucose 90 mg/dL (65-110); Potassium 3.7 mmol/L (3.4-5.0); Sodium 142 mmol/L (137-145)
--- NOTE | 2022-05-29 15:32 | ED.GENADULT ---
HPI - General Adult General Chief complaint: Urogenital-Male Stated complaint: right inguinal pain - sent [facility] Time Seen by Provider: 05/29/22 13:46 History of Present Illness HPI narrative: Patient is a 76-year-old male who presents ER with right groin pain. Ongoing over the last couple weeks. Radiates towards his back. No difficulty with passing gas or stooling. Patient does report he felt like he passed some grains in his urine that may be similar to kidney stones. No nausea or vomiting or sweats. Patient also reports history of renal mass that he reports was biopsied in the past and was negative for malignancy despite having other physicians recommend he have the masses excised. Related Data Home Medications Medication Instructions Recorded Confirmed metoprolol succinate 25 mg 25 mg PO DAILY 08/14/19 04/25/22 tablet,extended release 24 hr pravastatin 40 mg tablet 40 mg PO DAILY 08/14/19 04/25/22 cetirizine 10 mg tablet (24Hour 10 mg PO DAILY 02/16/21 04/25/22 Allergy) cholecalciferol (vitamin D3) 1,250 1,250 mcg PO WEEKLY 02/16/21 04/25/22 mcg (50,000 unit) capsule dabigatran etexilate 150 mg 150 mg PO BID 02/16/22 04/25/22 capsule (Pradaxa) dronedarone 400 mg tablet (Multaq) 400 mg PO BID 02/16/22 04/25/22 sacubitril 24 mg-valsartan 26 mg 0.5 tablet PO BID 02/16/22 04/25/22 tablet (Entresto) tadalafil 20 mg tablet 20 mg PO DAILY PRN Erectile 04/03/22 04/25/22 Dysfunction Allergies Allergy/AdvReac Type Severity Reaction Status Date / Time erythromycin base Allergy Intermediate Abdominal Verified 05/29/22 13:56 discomfort iodine Allergy Mild Skin Verified 05/29/22 13:56 irritation iohexol Allergy Mild Hives Verified 05/29/22 13:56 [From contrast - CT, X-RAY] Penicillins Allergy Mild Skin Verified 05/29/22 13:56 irritation Review of Systems Review of Systems: All systems reviewed & are unremarkable except as noted in HPI and below Constitutional: Constitutional: Denies chills and Denies fever(s) ENT: Denies nasal congestion and Denies sore throat Respiratory: Respiratory: Denies cough and Denies dyspnea Gastrointestinal: Gastrointestinal: Reports abdominal pain, Denies diarrhea, Denies nausea and Denies vomiting Genitourinary: Genitourinary: Denies urinary frequency PMFSH Past Medical History Medical History Afib Allergic rhinitis Cancer Basal cell -face, leg and arm CHF (congestive heart failure) Chronic low back pain without sciatica Chronic systolic CHF (congestive heart failure) Complex sleep apnea syndrome Cough 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 Diarrhea Effusion, left knee GERD (gastroesophageal reflux disease) Hypertension Left knee DJD Left knee DJD Mucus in stool PAC (premature atrial contraction) PAF (paroxysmal atrial fibrillation) Primary osteoarthritis of right knee Right knee DJD Right knee pain Vertigo Surgical History Surgical History H/O hernia repair History of cataract removal with insertion of prosthetic lens 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 Family History Family History Sibling Family history of transient ischemic attacks Family history of pulmonary embolism Mother Family history of congestive heart failure Social History Social History Smoking status: Never smoker Second hand tobacco smoke exposure: Yes Alcohol intake: former Alcohol use details: Stopped in 2017 Substance use: never Substance use type: does not use Gender identity (if verbalized by the patient): Male Exam Narrative: GENERAL: Well-appearing, well-nourished, and in no acute distress. HEAD: Normocephalic, atraumatic. CHEST: Clear to auscultation. No resp
[2022-05-29 15:40] LABS: Basophils Absolute Auto 0.1 K/mm3 (0.0-0.1); Eosinophils Absolute Auto 0.1 K/mm3 (0-0.3); Eosinophils Percent Auto 1.5 % (0-4.4); Hematocrit 42.7 % (42.0-52.0); Immature Granulocyte Absolute 0.01 K/mm3 (0.00-0.031); Immature Granulocyte Percent A 0.2 % (0-0.5); Lymphocytes Absolute Auto 1.15 K/mm3 (0.9-3.2); Lymphocytes Percent Auto 24.1 % (18.3-44.2); Mean Corpuscular HGB Conc 32.8 g/dl (32-36); Mean Corpuscular Hemoglobin 31.7 pg (26-34); Mean Corpuscular Volume 96.6 fl (80-100); Monocytes Absolute Auto 0.5 K/mm3 (0.1-0.6); Monocytes Percent Auto 10.9 % (2.6-8.5); Neutrophils Percent Auto 62.3 % (45.5-73.1); Platelet Count Result 238 k/mm3 (150-375); Red Blood Count 4.42 M/mm3 (4.6-6.20); Red Cell Distribution Width 13.2 % (11.5-14.5); White Blood Count 4.8 K/mm3 (4.5-10.0)
[2022-05-29 16:07] VITALS: BP 148/84; PULSE 98; RESP 18; O2SAT 98
== END 2022-05-29 16:08 | disposition home or self-care (01) ==
PROVIDERS: Emergency Provider Emergency Medicine; PCP Family Medicine
DX: K40.90 Unilateral inguinal hernia, without obstruction or gangrene, not specified as recurrent (principal); N28.89 Other specified disorders of kidney and ureter; S92.521A Displaced fracture of middle phalanx of right lesser toe(s), initial encounter for closed fracture; I48.0 Paroxysmal atrial fibrillation; I50.22 Chronic systolic (congestive) heart failure; G47.31 Primary central sleep apnea; K21.9 Gastro-esophageal reflux disease without esophagitis; M17.0 Bilateral primary osteoarthritis of knee; Z85.828 Personal history of other malignant neoplasm of skin; Z98.49 Cataract extraction status, unspecified eye; Z96.1 Presence of intraocular lens; Z77.22 Contact with and (suspected) exposure to environmental tobacco smoke (acute) (chronic); X58.XXXA Exposure to other specified factors, initial encounter
CPT/HCPCS: 36415; 73660; 74176; 80048; 81001; 85025; 99284

== ENCOUNTER 2022-06-28 10:29 | Outpatient (CLI) | payer MEDICARE, SELFPAY ==
--- NOTE | 2022-06-28 10:51 | ECG_ITS ---
Measurements Intervals [place] Rate: 69 P: 46 IN: 164 QRS: 12 QRSD: 102 T: 41 QT: 409 QTc: 440 Interpretive Statements SINUS RHYTHM SIGNIFICANT BASELINE ARTIFACT COMPARED TO ECG 01/21/2019 03:54:28 SINUS RHYTHM NOW PRESENT Electronically Signed On 06-28-2022 14:33:20 CDT by Cristofer Echeverria M.D.
[2022-06-28 11:36] LABS: INR 1.4; Prothrombin Time 16.4 Seconds (11.1-14.7)
[2022-06-28 11:37] LABS: Partial Thromboplastin Time 44.4 SECONDS (22.3-36.8)
[2022-06-28 11:42] LABS: Anion Gap 10 mmol/L (8-16); Blood Urea Nitrogen 13 mg/dL (9-20); Calcium 8.8 mg/dL (8.4-10.2); Carbon Dioxide 28 mmol/L (22-30); Chloride 105 mmol/L (98-107); Estimated Glomerular Filt Rate > 60; Glucose 82 mg/dL (65-110); Potassium 4.2 mmol/L (3.4-5.0); Sodium 143 mmol/L (137-145)
== END 2022-06-28 10:30 | disposition home or self-care (01) ==
LOC: ANHSURGERY 10:33
PROVIDERS: Anesthesiology; PCP Family Medicine; Visit Provider Surgery
DX: Z01.818 Encounter for other preprocedural examination (principal); K40.90 Unilateral inguinal hernia, without obstruction or gangrene, not specified as recurrent; N28.9 Disorder of kidney and ureter, unspecified; I48.91 Unspecified atrial fibrillation
CPT/HCPCS: 36415; 80048; 85610; 85730; 86850; 86900; 86901; 93005

== ENCOUNTER 2022-07-04 00:21 | Day surgery (SDC) | payer MEDICARE, SELFPAY ==
[2022-06-25 10:40] VITALS: BMI 22.6
--- NOTE | 2022-06-25 11:14 | PC.NURSE ---
PRE-OP INSTRUCTIONS, PLEASE READ CAREFULLY Report to the Outpatient Waiting Room, entrance under the green pavilion located off [facility], at time _0730_ on date _07/04/22_. Planned Procedure Time: _0930_. Time changes happen often and if your time is changed the preop area will call you the afternoon before. - You and your visitor will be asked to self-screen and do not enter if you have any COVID symptoms. - We encourage only one visitor and NO visitors under age 16 are allowed at this time. Your visitor will receive communication by the phone number that is given day of service. - The patient visitor is requested to social distance or may leave the building when not with patient due to restrictions. - A mask is required within the hospital. Patients may have clear liquids (water, carbonated beverages, clear teas, apple juice) until 3 hours prior to surgery (0630 AM) with a maximum of 20 ounces. - No food from midnight until time of surgery Take the following medications with a SIP of water the morning of surgery: _DRONEDARONE, METOPROLOL, SACUBITRIL, BREO INHALER, NASAL SPRAY & TYLENOL IF NEEDED_ Medications to discontinue DR. BELTRAN - _PRADAXA 5 DAYS PRIOR TO SURGERY, Date to take last dose 06/28/22_ Please no make-up, nail italian, hairspray, perfume, deodorant, or body powder the day of surgery. No jewelry (including any body piercings) or valuables the day of surgery, leave them at home. Please take a shower or bath the night before, or the morning of, surgery with an antibacterial soap. Wear comfortable, loose fitting clothing. - Jewelry must be removed prior to entering the operating room. Rings and piercings that are not removed may be cut off. - The hospital will not accept responsibility for valuables. - Please leave all valuables, including medications, at home the day of surgery. If you are going home after surgery, a licensed chuck wagon driver must drive you home. - NO public transportation without another adult. - We recommend that an adult stay with you for 24 hours following discharge. - We also recommend that you do not drive, make important decision, drink alcoholic beverages, or take any drugs that were not prescribed by your health care provider for at least 24 hours after your discharge time. Follow any additional instructions given to you from your surgeon. HIBICLENS SHOWER AM OF SURGERY If you or anyone in your household have experienced Covid symptoms in the past week, please notify your surgeon or the nurse liaison at the phone number below for possible testing. Telephone instructions given to ____PT and asked if any additional questions and then verbalized understanding. Patient advised to call surgeon office or pre surgery nurse liaison [phone] if any additional questions.
[2022-07-04] VITALS (13 sets, daily range): BP systolic 109–134; BP diastolic 66–79; PULSE 54–70; RESP 12–16; TEMP 36.6–36.8; O2SAT 96–100; BMI 23.0
[2022-07-04] MEDS: LACTATED RINGERS 1,000 ML 30 ML IV CONT ×2 (08:20→12:09)
[2022-07-04] MEDS: KETOROLAC 15 MG/ML VIAL (*BKC) IV PUSH (08:27)
--- NOTE | 2022-07-04 09:01 | WPDANESEPPF ---
Anes - Initial Pre Proc Eval Procedure: Operation Date: 07/04/22 09:30 Proposed Procedures p Laparoscopic Right Inguinal Hernia Repair with Mesh Davinci Assisted - Jarrett Lea DO Date/Time: 07/04/22 09:01 Surgeon: Jarrett Lea DO Pre Op Diagnosis: right inguinal hernia Patient Data Age: 76 Gender: M Height: 1.79 m Weight: 73.8 kg Last Vital Signs Temp 36.8 C 07/04/22 07:50 Pulse 66 07/04/22 07:50 Resp 14 07/04/22 07:50 BP 116/67 07/04/22 07:50 Pulse Ox 97 07/04/22 07:50 O2 Del Method Room Air 07/04/22 07:50 Allergies Allergy/AdvReac Type Severity Reaction Status Date / Time erythromycin base Allergy Intermediate Abdominal Verified 07/04/22 07:53 discomfort iodine Allergy Mild Skin Verified 07/04/22 07:53 irritation iohexol Allergy Mild Hives Verified 07/04/22 07:53 [From contrast - CT, X-RAY] Penicillins Allergy Mild Skin Verified 07/04/22 07:53 irritation Home Medications Medication Instructions Recorded Confirmed Type metoprolol succinate 25 mg 25 mg PO DAILY 08/14/19 07/04/22 History tablet,extended release 24 hr pravastatin 40 mg tablet 40 mg PO DAILY 08/14/19 06/25/22 History cetirizine 10 mg tablet (Allergy 10 mg PO DAILY 02/16/21 06/25/22 History Relief (cetirizine)) cholecalciferol (vitamin D3) 1,250 1,250 mcg PO WEEKLY 02/16/21 06/25/22 History mcg (50,000 unit) capsule esomeprazole magnesium 40 mg 40 mg PO DAILY #90 caps 10/09/21 06/25/22 Rx capsule,delayed release dabigatran etexilate 150 mg 150 mg PO BID 02/16/22 07/04/22 History capsule (Pradaxa) dronedarone 400 mg tablet (Multaq) 400 mg PO BID 02/16/22 07/04/22 History sacubitril 24 mg-valsartan 26 mg 0.5 tablet PO BID 02/16/22 07/04/22 History tablet (Entresto) tadalafil 20 mg tablet 20 mg PO DAILY PRN Erectile 04/03/22 06/25/22 History Dysfunction azelastine 205.5 mcg (0.15 %) 1 spray intranasal QHS #30 mL 04/09/22 06/25/22 Rx nasal spray fluticasone furoate 200 1 inh inhalation DAILY #60 ea 05/24/22 06/25/22 Rx mcg-vilanterol 25 mcg/dose inhalation powder (Breo Ellipta) acetaminophen 650 mg 650 mg PO Q12H PRN Pain 06/25/22 07/04/22 History tablet,extended release (Tylenol Arthritis Pain) fluticasone propionate 50 1 spray intranasal BID PRN allergy 06/25/22 07/04/22 History mcg/actuation nasal symptoms spray,suspension (Flonase Allergy Relief) Patient hx anesthesia problems: none Family hx anesthesia problems: none Results Review: All pre-operative results and documents have been reviewed as part of the pre-operative evaluation. 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 Diarrhea Effusion, left knee GERD (gastroesophageal reflux disease) Hypertension Left knee DJD Left knee DJD Mucus in stool PAC (premature atrial contraction) PAF (paroxysmal atrial fibrillation) Primary osteoarthritis of right knee Right knee DJD Right knee pain Vertigo Surgical History Surgical History H/O hernia repair History of cataract removal with insertion of prosthetic lens 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 Family History Family History Sibling Family history of transient ischemic attacks Family history of pulmonary embolism Mother Family history of congestive heart failure Social History Social History Smoking status: Never smoker Second hand tobacco smoke exposure: Yes (OCCASIONALLY) Alcohol intake: never
--- NOTE | 2022-07-04 09:32 | SUR.PREOP ---
0932- Notified patient Gavino and spouse, Ana that procedure start time will be delayed. Patient and spouse verbalized understanding. Patient taken to restroom to void.
--- NOTE | 2022-07-04 09:37 | WPDHPUPDATE1 ---
History and Physical Update Update Date/Time: 07/04/22 09:37 History and Physical has been reviewed, including an updated exam of the patient. There are NO changes in the patient's condition. Risks, benefits, and alternatives have been discussed and questions answered. Patient agrees to proceed with procedure.
[2022-07-04] MEDS: ceFAZolin 2 GM/D5W 50 ML 2 GM/50 ML BAG IVPB (10:16)
[2022-07-04] MEDS: BUPIVACAINE/EPINEPHRINE 0.25% 50 ML VIAL 30 ML INFILTRATE (10:42)
--- NOTE | 2022-07-04 11:31 | W.PM.PROC2 ---
Procedure Note - Detailed Date of Procedure 07/04/22 Pre-op Diagnosis right inguinal hernia Post-op Diagnosis Same (Indirect RIH) Procedure Performed Laparoscopic right inguinal hernia repair with mesh, da Jerome assisted Surgeon Jarrett Lea, Anesthesia General and Local (0.5% bupivacaine with epinephrine) Indications This is a 76-year-old man who presented with right groin pain and a bulge that he 1st noticed on 05/29/2022. He went to the emergency department and a CT showed evidence of a right inguinal hernia containing a loop of small bowel. There was no evidence of obstruction or incarceration. Discussions were made with the patient about treatment options and decision was made to proceed with robotic assisted laparoscopic right inguinal hernia repair with mesh. Findings Laparoscopic right inguinal hernia repair was performed. A robotic transabdominal preperitoneal approach was utilized. Patient was found to have an indirect right inguinal hernia. The hernia sac extended all the way down into the scrotum. There was no evidence of a left inguinal hernia. A preperitoneal pocket was created and a large right 3DMax mid mesh was placed overlying the entire right myopectineal orifice. No specimens were obtained for pathology. Description of Procedure Procedure as well as risks, benefits, and alternatives were discussed with the patient. Written consent was obtained and placed in chart prior to procedure. Patient was brought back to surgical suite. He was placed supine on operating table. Time-out was done to confirm patient and procedure. He was then intubated by Anesthesia Department. His abdomen was prepped and draped in sterile fashion using chlorhexidine prep. 0.5% bupivacaine with epinephrine was infiltrated at each location for incision. A 12 millimeter transverse incision was made just superior to the umbilicus using a 15 blade scalpel. Blunt dissection was carried out down to the linea alba. A vertical incision was made at the linea alba using a 15 blade scalpel. The peritoneum was then bluntly entered. A 12 millimeter trocar was inserted and carbon dioxide insufflation was used to create a pneumoperitoneum. A camera was inserted and the abdominal cavity was inspected. The patient was placed in slight Trendelenburg position. An 8 millimeter incision was made on the right lateral abdomen and an 8 millimeter trocar was inserted under direct visualization. Another 8 millimeter incision was made in the left lateral abdomen and an 8 millimeter trocar was inserted under direct visualization. The robotic arms were brought up to the patient's bedside and secured to the ports. The camera and instruments were inserted. I then moved over to the robotic console and took control of the camera and instruments. After careful inspection of the abdominal cavity, I began scoring the peritoneum along the right lower quadrant using scissors with electrocautery. The preperitoneal plane was entered and this was carefully dissected caudally along the inferior epigastric vessels. Careful dissection with scissors with electrocautery and blunt dissection was used to continue this dissection. I dissected far enough laterally to allow for mesh placement, and also dissected medially to identify the pubic arch and Bradley's ligament. The hernia sac was identified and carefully dissected posteriorly. The cord contents were also identified and the peritoneum was carefully dissected far enough posteriorly to allow for mesh placement. Once an adequate pocket was created, I then placed the mesh within the preperitoneal pocket and carefully unfolded it. The mesh was centered on the hernia defect with adequate overlap circumferentially. The inferior edge of the mesh was inspected to ensure that it was far enough away from the peritoneal edge. The mesh appeared in proper position overlying the entire myopectineal orifice. The mesh was secured using 3-0 Vicryl simple
[2022-07-04] MEDS: ONDANSETRON INJ 4 MG/2 ML VIAL IV PUSH (12:27)
[2022-07-04] MEDS: FAMOTIDINE 20 MG/2 ML VIAL IV PUSH (13:06)
[2022-07-04] MEDS: DEXAMETHASONE SOD PHOS INJ 4 MG/ML VIAL IV PUSH (13:09)
--- NOTE | 2022-07-04 14:24 | SUR.PHASEII ---
PATIENT HAS HAD VERTIGO AND NAUSEA SINCE UPON ARRIVAL TO OP AREA. ABLE TO TRANSFER TO RECLINER AT 1415. C/O'S FEELING SOMEWHAT SEDATED. HAND SCIENTIST ENGINEER STRONG; FEET PULLS AND PUSHES STRONG.
--- NOTE | 2022-07-04 16:06 | SUR.PHASEII ---
1515 PATIENT VOIDED WITH NORMAL STREAM PER PATIENT.
--- NOTE | 2022-07-04 16:07 | SUR.PHASEII ---
1540 PATIENT ABLE TO WALK SHORT DISTANCE WITHOUT ASSISTANCE. VERTIGO GONE NOW.
== END 2022-07-04 15:50 | disposition home or self-care (01) ==
PROVIDERS: PCP Family Medicine; Visit Provider Surgery
PROC: 8E0Y4CZ Robotic Assisted Procedure of Lower Extremity, Percutaneous Endoscopic Approach (ICD-10-PCS; CPT 49650; principal; 2022-07-04 09:30)
DX: K40.90 Unilateral inguinal hernia, without obstruction or gangrene, not specified as recurrent (principal); I48.91 Unspecified atrial fibrillation; I11.0 Hypertensive heart disease with heart failure; I50.22 Chronic systolic (congestive) heart failure; K21.9 Gastro-esophageal reflux disease without esophagitis; I49.1 Atrial premature depolarization; G47.39 Other sleep apnea; Z79.01 Long term (current) use of anticoagulants
CPT/HCPCS: 49650; S2900; 36415; 80048; 85610; 85730; 86850; 86900; 86901; 93005; A9270; C1781; J0330; J0690; J1100; J1885; J2405; J2704; J2710; J7120

== ENCOUNTER 2022-09-26 19:15 | Emergency (ER) | payer MEDICARE, SELFPAY ==
--- NOTE | ~2022-09-26 | XR_ITS ---
EXAMINATION: XR chest 1V portable Exam Date/Time: 09/26/2022 20:05 CORPORATE OPERATIONS COMPLIANCE MANAGER HISTORY: COVID+, SOB. HX CHF, HTN Comparison: 07/10/2021. RESULT: Lines, tubes, and devices: None. Lungs and pleura: Clear. Cardiomediastinal silhouette: Stable. Other: No acute osseous or upper abdominal finding. IMPRESSION: No acute cardiopulmonary process. Reviewed, dictated and finalized at location K. ORATE OPERATIONS COMPLIANCE MANAGER
[2022-09-26 19:20] VITALS: BP 121/83; PULSE 81; RESP 16; TEMP 37.3; O2SAT 95
--- NOTE | 2022-09-26 19:39 | ED.NAVMDI ---
HPI - Nausea/Vomiting/Diarrhea General Chief complaint: Nausea/Vomiting/Diarrhea Stated complaint: unspecified Time Seen by Provider: 09/26/22 19:25 History of Present Illness HPI Narrative: 76-year-old male with history of atrial fibrillation, CHF here for evaluation of nausea, vomiting and a cough over the past day. He states he has been unable to tolerate any p.o. patient states that his grandkids are sick with similar symptoms and so with his . He took a home COVID test that was positive. Presents today because he is unable to tolerate PO. He is wearing a monitor for his atrial fibrillation, follows with Dr. Corral. He denies any abdominal pain, fevers, diarrhea, constipation. PCP called in prescription for paxlovid already. Related Data Home Medications Medication Instructions Recorded Confirmed metoprolol succinate 25 mg 25 mg PO DAILY 08/14/19 07/20/22 tablet,extended release 24 hr pravastatin 40 mg tablet 40 mg PO DAILY 08/14/19 07/20/22 cetirizine 10 mg tablet (Allergy 10 mg PO DAILY 02/16/21 07/20/22 Relief (cetirizine)) cholecalciferol (vitamin D3) 1,250 1,250 mcg PO WEEKLY 02/16/21 07/20/22 mcg (50,000 unit) capsule dabigatran etexilate 150 mg 150 mg PO BID 02/16/22 07/20/22 capsule (Pradaxa) dronedarone 400 mg tablet (Multaq) 400 mg PO BID 02/16/22 07/20/22 sacubitril 24 mg-valsartan 26 mg 0.5 tablet PO BID 02/16/22 07/20/22 tablet (Entresto) tadalafil 20 mg tablet 20 mg PO DAILY PRN Erectile 04/03/22 07/20/22 Dysfunction acetaminophen 650 mg 650 mg PO Q12H PRN Pain 06/25/22 07/20/22 tablet,extended release (Tylenol Arthritis Pain) fluticasone propionate 50 1 spray intranasal BID PRN allergy 06/25/22 07/20/22 mcg/actuation nasal symptoms spray,suspension (Flonase Allergy Relief) ferrous sulfate 325 mg (65 mg 325 mg PO DAILY 08/15/22 iron) tablet Allergies Allergy/AdvReac Type Severity Reaction Status Date / Time erythromycin base Allergy Intermediate Abdominal Verified 09/26/22 19:44 discomfort iodine Allergy Mild Skin Verified 09/26/22 19:44 irritation iohexol Allergy Mild Hives Verified 09/26/22 19:44 [From contrast - CT, X-RAY] Penicillins Allergy Mild Skin Verified 09/26/22 19:44 irritation Review of Systems Review of Systems: Gen.: Denies fevers or chills Eyes: Denies eye pain or visual change ENT: Denies congestion Respiratory: Reports cough. Denies shortness of breath CV: Denies chest pain or palpitations GI: Reports nausea and vomiting : denies burning, urgency, frequency or hematuria Musculoskeletal: Denies back pain or muscle pain Neuro: Denies numbness, tingling, weakness or focal weakness Skin: Denies rash Except as documented, all other systems reviewed and negative [facility] Past Medical History Medical History Allergic rhinitis Cancer Basal cell -face, leg and arm CHF (congestive heart failure) Chronic low back pain without sciatica Chronic systolic CHF (congestive heart failure) Complex sleep apnea syndrome Cystic encephalomalacia Diarrhea Effusion, left knee GERD (gastroesophageal reflux disease) Hypertension Left knee DJD Mucus in stool PAC (premature atrial contraction) Primary osteoarthritis of right knee Right knee DJD Vertigo Surgical History Surgical History H/O hernia repair History of cataract removal with insertion of prosthetic lens Hx of right inguinal hernia repair LAP RIH repair with mesh, Da Jerome assisted 07/04/22 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
[2022-09-26] MEDS: ONDANSETRON INJ 4 MG/2 ML VIAL IV PUSH (19:49)
[2022-09-26] MEDS: SODIUM CHLORIDE 0.9% IV 1,000 ML 999 ML IV CONT (19:49)
[2022-09-26 19:55] LABS: Basophils Percent Auto 0.4 % (0.2-1.2); Eosinophils Percent Auto 0.2 % (0-4.4); Hematocrit 45.7 % (42.0-52.0); Immature Granulocyte Absolute 0.02 K/mm3 (0.00-0.031); Immature Granulocyte Percent A 0.4 % (0-0.5); Lymphocytes Absolute Auto 0.97 K/mm3 (0.9-3.2); Mean Corpuscular HGB Conc 32.8 g/dl (32-36); Mean Corpuscular Hemoglobin 32.5 pg (26-34); Mean Corpuscular Volume 99.1 fl (80-100); Mean Platelet Volume 9.1 fl (7.4-10.4); Monocytes Percent Auto 17.4 % (2.6-8.5); Neutrophils Absolute Auto 3.7 K/mm3 (1.3-6.7); Neutrophils Percent Auto 64.6 % (45.5-73.1); Platelet Count Result 174 k/mm3 (150-375); Red Blood Count 4.61 M/mm3 (4.6-6.20); Red Cell Distribution Width 12.9 % (11.5-14.5); White Blood Count 5.7 K/mm3 (4.5-10.0)
[2022-09-26 20:08] LABS: Alanine Aminotransferase 25 U/L (6-50); Albumin Level 3.9 g/dL (3.5-5.1); Alkaline Phosphatase 65 U/L (38-126); Anion Gap 7 mmol/L (8-16); Aspartate Amino Transferase 33 U/L (17-59); Bilirubin,Total 0.9 mg/dL (0.2-1.3); Blood Urea Nitrogen 18 mg/dL (9-20); Calcium 8.3 mg/dL (8.4-10.2); Carbon Dioxide 27 mmol/L (22-30); Chloride 105 mmol/L (98-107); Estimated CRCL calculation 49 ml/min; Estimated Glomerular Filt Rate > 60; Glucose 91 mg/dL (65-110); Sodium 139 mmol/L (137-145)
[2022-09-26 20:15] VITALS: BP 115/87; PULSE 65; RESP 14; O2SAT 96
--- NOTE | 2022-09-26 20:16 | PC.NURSE ---
added pt. lipase on spoke w/ lab
--- NOTE | 2022-09-26 20:30 | PC.NURSE ---
hyperbaric tech ambulated pt. w/ walking pulse oxygen monitor. pt. tolerated procedure well and oxygen saturation on room air did not drop below 93%. ERP made aware
[2022-09-26 20:34] LABS: Lipase 40 U/L (23-300)
[2022-09-26 21:00] VITALS: BP 138/74; PULSE 88; RESP 19; O2SAT 99
[2022-09-26 21:50] VITALS: BP 123/89; PULSE 80; RESP 19; O2SAT 99
== END 2022-09-26 21:50 | disposition home or self-care (01) ==
PROVIDERS: Emergency Provider Physician Assistant; PCP Family Medicine
DX: U07.1 COVID-19 (principal); I11.0 Hypertensive heart disease with heart failure; I50.9 Heart failure, unspecified; M54.50 Low back pain, unspecified; G89.29 Other chronic pain; G47.30 Sleep apnea, unspecified; K21.9 Gastro-esophageal reflux disease without esophagitis; M19.90 Unspecified osteoarthritis, unspecified site
CPT/HCPCS: 36415; 71045; 80053; 83690; 85025; 96361; 96374; 99284; J2405; J7030

== ENCOUNTER 2022-11-05 17:23 | Emergency (ER) | payer MEDICARE, SELFPAY ==
[2022-11-05 17:28] VITALS: BP 94/70; PULSE 68; RESP 16; TEMP 36.9; O2SAT 97
--- NOTE | 2022-11-05 17:41 | ED.URI ---
HPI - URI/Sore Throat General Chief Complaint: Upper Respiratory Infection Stated Complaint: sinus congestion,cough,bodyaches Time Seen by Provider: 11/05/22 17:41 Source: patient, RN notes reviewed and old records reviewed Mode of arrival: ambulatory Limitations: no limitations History of Present Illness HPI Narrative: 77 year old male who [facility] to [facility] care with complaints of sinus congestion, body aches and cough for the past 3 days. Patient reports that he had COVID in September of 2022 and took antiviral and recovered well but has been increasingly tired for the past week. Patient reports that cough has been bad especially Saturday when he coughed all night long and had some chills earlier in the day. Patient reports that on Saturday and Saturday over the weekend he used saline nasal flushes and Flonase. He has been using his Breo inhaler as directed. Patient denies any known fevers. MD elicited complaint: cough, rhinorrhea, nasal congestion and other (bodyaches) Pertinent past history: other (afib on pradaxa,CHF) Onset (ago): day(s) (3) Able to tolerate fluids by mouth: Yes Treatments prior to arrival: other (nasal saline, flonase and Breo inhaler as ordered) Related Data Home Medications Medication Instructions Recorded Confirmed metoprolol succinate 25 mg 25 mg PO DAILY 08/14/19 07/20/22 tablet,extended release 24 hr pravastatin 40 mg tablet 40 mg PO DAILY 08/14/19 07/20/22 cholecalciferol (vitamin D3) 1,250 1,250 mcg PO WEEKLY 02/16/21 07/20/22 mcg (50,000 unit) capsule dabigatran etexilate 150 mg 150 mg PO BID 02/16/22 07/20/22 capsule (Pradaxa) dronedarone 400 mg tablet (Multaq) 400 mg PO BID 02/16/22 07/20/22 sacubitril 24 mg-valsartan 26 mg 0.5 tablet PO BID 02/16/22 07/20/22 tablet (Entresto) tadalafil 20 mg tablet 20 mg PO DAILY PRN Erectile 04/03/22 07/20/22 Dysfunction fluticasone propionate 50 1 spray intranasal BID PRN allergy 06/25/22 07/20/22 mcg/actuation nasal symptoms spray,suspension (Flonase Allergy Relief) ferrous sulfate 325 mg (65 mg 325 mg PO DAILY 08/15/22 iron) tablet Allergies Allergy/AdvReac Type Severity Reaction Status Date / Time erythromycin base Allergy Intermediate Abdominal Verified 11/05/22 17:32 discomfort iodine Allergy Mild Skin Verified 11/05/22 17:32 irritation iohexol Allergy Mild Hives Verified 11/05/22 17:32 [From contrast - CT, X-RAY] Penicillins Allergy Mild Skin Verified 11/05/22 17:32 irritation Review of Systems Review of Systems: CONSTITUTIONAL: Reports malaise, chills, sweats, no known fevers. EYES: Denies visual changes, redness, or discharge. ENT: Reports rhinorrhea, congestion, sinus pain, no otalgia, no sore throat. CARDIOVASCULAR: Denies chest pain, palpitations, or edema. RESPIRATORY: Reports productive cough.? Denies dyspnea. GASTROINTESTINAL: Denies abdominal pain, nausea, vomiting, diarrhea SKIN: Denies rash or itching. MUSCULOSKELETAL: Reports myalgia. NEUROLOGIC: Denies headache. All systems reviewed & are unremarkable except as noted in HPI and below PMFSH Past Medical History Medical History Allergic rhinitis Cancer Basal cell -face, leg and arm CHF (congestive heart failure) Chronic low back pain without sciatica Chronic systolic CHF (congestive heart failure) Complex sleep apnea syndrome Cystic encephalomalacia Diarrhea Effusion, left knee GERD (gastroesophageal reflux disease) Hypertension Left knee DJD Mucus in stool PAC (premature atrial contraction) Primary osteoarthritis of right knee Right knee DJD Vertigo Surgical History Surgical History H/O hernia repair History of cataract removal with insertion of prosthetic lens Hx of right inguinal hernia repair LAP RIH repair with mesh, Da Jerome assisted 07/04/22 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
== END 2022-11-05 18:10 | disposition home or self-care (01) ==
PROVIDERS: Emergency Provider Registered Nurse; PCP Family Medicine
DX: R05.1 Acute cough (principal); J06.9 Acute upper respiratory infection, unspecified; Z20.822 Contact with and (suspected) exposure to COVID-19; I21.9 Acute myocardial infarction, unspecified; M17.0 Bilateral primary osteoarthritis of knee; I11.0 Hypertensive heart disease with heart failure; I50.9 Heart failure, unspecified; G93.89 Other specified disorders of brain; Z85.828 Personal history of other malignant neoplasm of skin
CPT/HCPCS: 87426; 99213; C9803; G0463

== ENCOUNTER 2022-11-11 14:26 | Emergency (ER) | payer MEDICARE, SELFPAY ==
[2022-11-11 14:39] VITALS: BP 126/84; PULSE 71; RESP 12; TEMP 36.4; O2SAT 99
--- NOTE | 2022-11-11 14:39 | ED.URI ---
HPI - URI/Sore Throat General Chief Complaint: Upper Respiratory Infection Stated Complaint: sore throat Time Seen by Provider: 11/11/22 14:39 Source: patient and RN notes reviewed History of Present Illness HPI Narrative: Patient is a 77-year-old male who presents to urgent care with complaints of hoarseness, sore throat, cough, nasal congestion and sinus drainage. Patient was seen at our facility on Saturday and given prednisone. Patient states he did finish the medication and feels her symptoms are still persistent with hoarseness. Patient states that he did not take the Zyrtec that was recommended on Saturday. States he has been using 2 different nasal sprays. Patient denies any recent fevers, shortness of breath. States that he has not felt 100% for several months after having a stomach bug and COVID. Patient has not followed up with his PCP regarding his current symptoms. No other acute complaints. No acute distress noted. Patient aware of the plan of care. Some parts of this dictation were generated by voice recognition software and may contain typographical and/or grammatical inaccuracies. Related Data Home Medications Medication Instructions Recorded Confirmed metoprolol succinate 25 mg 25 mg PO DAILY 08/14/19 11/11/22 tablet,extended release 24 hr pravastatin 40 mg tablet 40 mg PO DAILY 08/14/19 11/11/22 cholecalciferol (vitamin D3) 1,250 1,250 mcg PO WEEKLY 02/16/21 11/11/22 mcg (50,000 unit) capsule dabigatran etexilate 150 mg 150 mg PO BID 02/16/22 11/11/22 capsule (Pradaxa) dronedarone 400 mg tablet (Multaq) 400 mg PO BID 02/16/22 11/11/22 sacubitril 24 mg-valsartan 26 mg 0.5 tablet PO BID 02/16/22 11/11/22 tablet (Entresto) tadalafil 20 mg tablet 20 mg PO DAILY PRN Erectile 04/03/22 11/11/22 Dysfunction fluticasone propionate 50 1 spray intranasal BID PRN allergy 06/25/22 11/11/22 mcg/actuation nasal symptoms spray,suspension (Flonase Allergy Relief) ferrous sulfate 325 mg (65 mg 325 mg PO DAILY 08/15/22 11/11/22 iron) tablet Allergies Allergy/AdvReac Type Severity Reaction Status Date / Time erythromycin base Allergy Intermediate Abdominal Verified 11/11/22 14:36 discomfort iodine Allergy Mild Skin Verified 11/11/22 14:36 irritation iohexol Allergy Mild Hives Verified 11/11/22 14:36 [From contrast - CT, X-RAY] Penicillins Allergy Mild Skin Verified 11/11/22 14:36 irritation Review of Systems Review of Systems: CONSTITUTIONAL: Denies fever, chills, or sweats. EYES: Denies visual changes, redness, or discharge. ENT: Reports of congestion, postnasal drainage, rhinorrhea, sore throat hoarseness CARDIOVASCULAR: Denies chest pain, palpitations, or edema. RESPIRATORY: Reports cough without dyspnea GASTROINTESTINAL: Denies abdominal pain, nausea, vomiting, or diarrhea. GENITOURINARY: Denies dysuria or hematuria. SKIN: Denies rash or itching. MUSCULOSKELETAL: Denies back pain, joint pain, or myalgia. NEUROLOGIC: Denies headache, numbness, or weakness. All other systems reviewed are negative, except as documented in HPI. [facility] Past Medical History Medical History Allergic rhinitis Cancer Basal cell -face, leg and arm CHF (congestive heart failure) Chronic low back pain without sciatica Chronic systolic CHF (congestive heart failure) Complex sleep apnea syndrome Cystic encephalomalacia Diarrhea Effusion, left knee GERD (gastroesophageal reflux disease) Hypertension Left knee DJD Mucus in stool PAC (premature atrial contraction) Primary osteoarthritis of right knee Right knee DJD Vertigo Surgical History Surgical History H/O hernia repair History of cataract removal with insertion of prosthetic lens Hx of right inguinal hernia repair LAP RIH repair with mesh, Da Jerome assisted 07/04/22 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
== END 2022-11-11 15:00 | disposition home or self-care (01) ==
PROVIDERS: Emergency Provider Nurse Practitioner Family; PCP Family Medicine
DX: J32.9 Chronic sinusitis, unspecified (principal); I11.0 Hypertensive heart disease with heart failure; I50.22 Chronic systolic (congestive) heart failure; Z85.828 Personal history of other malignant neoplasm of skin
CPT/HCPCS: 99213; G0463

== ENCOUNTER 2022-12-04 10:59 | Outpatient (CLI) | payer MEDICARE, SELFPAY | END 2022-12-04 11:00 | disposition home or self-care (01) | LOC: ANHAUDIO 11:00 | PROVIDERS: PCP Family Medicine; Visit Provider Physician Assistant | DX: H91.90 Unspecified hearing loss, unspecified ear (principal) | CPT/HCPCS: 92557; 92567 ==

== ENCOUNTER → 2023-01-10 11:38 | Outpatient (CLI) | payer MEDICARE, SELFPAY ==
--- NOTE | ~2023-01-10 | XR_ITS ---
XR chest 2V 01/10/2023 11:52 Indication: Cough with shortness of breath Procedure: 2 view chest Comparison: Comparison to multiple prior studies sequentially, with oldest reviewed study dated 09/29. Findings: Heart size normal. No focal air space disease, pulmonary edema, pleural effusion or suspect ed pneumothorax. No acute osseous abnormality. Impression: 1: No acute cardiopulmonary disease. Reviewed, dictated and finalized at location L. Impression: 1: No acute cardiopulmonary disease.
== END ==
PROVIDERS: PCP Family Medicine; Visit Provider Physician Assistant
DX: R06.02 Shortness of breath (principal); R05.9 Cough, unspecified
CPT/HCPCS: 71046

== ENCOUNTER 2023-02-18 16:46 | Outpatient (CLI) | payer MEDICARE, SELFPAY ==
[2023-02-18 17:22] LABS: Rheumatoid Factor < 12.0 IU/ML (<12)
[2023-02-21 09:22] LABS: ANA Cascade Screen Negative (Negative)
[2023-02-23 03:23] LABS: Anti Cyclic Citrullinated Pept <16 Units (<20)
== END 2023-02-18 16:47 | disposition home or self-care (01) ==
PROVIDERS: PCP Family Medicine; Visit Provider Nurse Practitioner Family
DX: J84.9 Interstitial pulmonary disease, unspecified (principal)
CPT/HCPCS: 36415; 86038; 86200; 86430

== ENCOUNTER 2023-03-01 10:11 | Outpatient (CLI) | payer MEDICARE, SELFPAY ==
[2023-03-01 16:01] LABS: Appearance Urine Clear (Clear); Bacteria Urine None Seen /hpf; Bilirubin Urine Negative (Negative); Blood Urine Negative (Negative); Color Urine Yellow (Yellow); Glucose Urine UA Negative (Negative); Ketones Urine Negative (Negative); Leukocyte Esterase Ur Trace LEU/UL (NEGATIVE); Nitrate Urine Negative (Negative); Non Pathogenic Casts 0-2; Protein Urine Negative (Negative); RBC Urine 0-2 /hpf (0-2); Specific Grav Ur 1.021 (1.001-1.035); Squamous Epithelial Cell Urine None seen /hpf (Few); Urobilinogen Urine 0.2 mg/dL (<2.0); WBC Urine 0-5 /hpf (0-3)
[2023-03-01 16:06] LABS: Add Urine Microscopic? YES
== END 2023-03-01 10:12 | disposition home or self-care (01) ==
LOC: ANHGOSHLAB 10:24
PROVIDERS: PCP Family Medicine; Visit Provider Physician Assistant
DX: J84.9 Interstitial pulmonary disease, unspecified (principal); R31.9 Hematuria, unspecified
CPT/HCPCS: 36415; 81001; 86331; 86606; 86609; 87086; 87088

== ENCOUNTER 2023-04-15 08:00 | Outpatient (RCR) | payer MEDICARE, SELFPAY | END 2023-04-15 23:59 | disposition home or self-care (01) | LOC: ANHAUDIO 08:00 | PROVIDERS: PCP Family Medicine; Visit Provider Family Medicine | DX: Z46.1 Encounter for fitting and adjustment of hearing aid (principal) | CPT/HCPCS: 99199; V5261 ==

== ENCOUNTER 2023-04-19 10:57 | Outpatient (CLI) | payer MEDICARE, SELFPAY ==
[2023-04-19 18:26] LABS: Basophils Absolute Auto 0.1 K/mm3 (0.0-0.1); Basophils Percent Auto 1.6 % (0.2-1.2); Eosinophils Absolute Auto 0.1 K/mm3 (0-0.3); Eosinophils Percent Auto 1.8 % (0-4.4); Hematocrit 45.8 % (42.0-52.0); Hemoglobin 14.9 g/dL (14.0-18.0); Immature Granulocyte Absolute 0.02 K/mm3 (0.00-0.031); Immature Granulocyte Percent A 0.4 % (0-0.5); Lymphocytes Absolute Auto 1.19 K/mm3 (0.9-3.2); Lymphocytes Percent Auto 23.9 % (18.3-44.2); Mean Corpuscular HGB Conc 32.5 g/dl (32-36); Mean Corpuscular Hemoglobin 32.6 pg (26-34); Mean Corpuscular Volume 100.2 fl (80-100); Mean Platelet Volume 9.3 fl (7.4-10.4); Monocytes Absolute Auto 0.4 K/mm3 (0.1-0.6); Monocytes Percent Auto 8.2 % (2.6-8.5); Neutrophils Absolute Auto 3.2 K/mm3 (1.3-6.7); Neutrophils Percent Auto 64.1 % (45.5-73.1); Platelet Count Result 229 k/mm3 (150-375); Red Blood Count 4.57 M/mm3 (4.6-6.20); Red Cell Distribution Width 13.1 % (11.5-14.5)
[2023-04-19 18:48] LABS: Alanine Aminotransferase 21 U/L (6-50); Albumin Level 4.2 g/dL (3.5-5.1); Alkaline Phosphatase 51 U/L (38-126); Anion Gap 6 mmol/L (8-16); Aspartate Amino Transferase 35 U/L (17-59); Bilirubin,Total 0.9 mg/dL (0.2-1.3); Blood Urea Nitrogen 16 mg/dL (9-20); Calcium 8.7 mg/dL (8.4-10.2); Carbon Dioxide 30 mmol/L (22-30); Chloride 107 mmol/L (98-107); Cholesterol 203 mg/dL (0-200); Estimated Glomerular Filt Rate > 60; Glucose 87 mg/dL (65-110); HDL Direct 37 mg/dL; LDL Cholesterol Direct 121 mg/dL; Potassium 3.8 mmol/L (3.4-5.0); Sodium 143 mmol/L (137-145); Triglycerides 160 mg/dL (<150)
[2023-04-19 19:06] LABS: Prostate Specific Antigen 3.2 ng/mL (< OR = 4.0)
[2023-04-22 16:10] LABS: Folic Acid > 20.0 ng/mL (2.76->20)
[2023-04-24 10:41] LABS: Vitamin D 1,25 (OH)2 Total 26 pg/mL (18-72); Vitamin D2 1,25 (OH)2 <8 pg/mL; Vitamin D3 1,25 (OH)2 26 pg/mL
== END 2023-04-19 10:58 | disposition home or self-care (01) ==
PROVIDERS: PCP Family Medicine; Visit Provider Physician Assistant
DX: E78.2 Mixed hyperlipidemia (principal); I11.9 Hypertensive heart disease without heart failure; I48.0 Paroxysmal atrial fibrillation; Z79.899 Other long term (current) drug therapy; Z12.5 Encounter for screening for malignant neoplasm of prostate; D75.89 Other specified diseases of blood and blood-forming organs
CPT/HCPCS: 36415; 80053; 80061; 82607; 82652; 82746; 84153; 84443; 85025; G0103

== ENCOUNTER 2023-07-22 14:15 | Outpatient (NON) | payer MEDICARE, SELFPAY | END 2023-07-22 14:16 | disposition home or self-care (01) | LOC: ANHLAB 14:15 | PROVIDERS: PCP Family Medicine; Visit Provider Nurse Practitioner | DX: C44.92 Squamous cell carcinoma of skin, unspecified (principal) | CPT/HCPCS: 88305; 88331 ==

== ENCOUNTER → 2023-10-16 13:58 | Outpatient (CLI) | payer MEDICARE, SELFPAY ==
--- NOTE | ~2023-10-16 | XR_ITS ---
Clinical Indication: Cough PA and lateral views of the chest: Comparison: 01/10/2023 Findings: The lungs are clear, without evidence of focal consolidation or pleural effusion. Cardiome diastinal silhouette is within normal limits. Bones and soft tissues are unremarkable. Impression: Normal chest. Reviewed, dictated and finalized at [facility]. HEEL BACK LINER Impression: Normal chest.
== END ==
PROVIDERS: PCP Family Medicine; Visit Provider Physician Assistant
DX: R05.9 Cough, unspecified (principal)
CPT/HCPCS: 71046

== ENCOUNTER 2024-02-19 12:52 | Outpatient (CLI) | payer MEDICARE, SELFPAY ==
--- NOTE | ~2024-02-19 | CT_ITS ---
EXAMINATION:CT chest high resolution wo co DATE: 02/19/2024 14:48 INDICATION: Interstitial pulmonary disease, unspecified. TECHNIQUE: Computed tomography (CT) of the chest was performed without intravenous contrast. Automate d exposure control and iterative reconstruction technique were employed. The dose-length product (DLP ) was 172.43 mGy-cm. COMPARISON: Chest CT 03/19/2022, CT abdomen and pelvis 05/03/2021 FINDINGS: There is mild scarring at the lung apices. There is peripheral septal thickening in the urmila gs. There is mild bronchiectasis in the inferior lungs. There is mild atelectasis in the lower lobes. No honeycombing. There is a small right posterior diaphragmatic hernia containing fat. The heart siz e is normal. No pericardial effusion. There is a 2.7 cm cyst in right kidney. Partially visualized is a 5.2 cm mass in right kidney. Partially visualized is a 2.5 cm mass in left kidney. These masses en hanced on 05/03/2021. There is a small sliding hiatal hernia. There is kyphosis of thoracic spine with mild chronic anterior wedging of multiple vertebral bodies and mild spondylosis. IMPRESSION: 1. Stable mild chronic interstitial lung disease in a pattern of nonspecific interstitial pneumonia ( NSIP). 2. Bilateral kidney masses, consistent with renal cell carcinoma. Reviewed, dictated and finalized at location A. IMPRESSION: 1. Stable mild chronic interstitial lung disease in a pattern of nonspecific in terstitial pneumonia (NSIP). 2. Bilateral kidney masses, consistent with renal cell carcinoma.
--- NOTE | 2024-02-20 12:43 | WPDSIXMINUTE ---
Six Minute Walk Procedure Procedure Performed Pulmonary Stress Test (6 min walk) Six Minute Walk Six Minute Walk: This 6 minute walk test was carried out with the patient breathing ambient air. The baseline pre walk oxyhemoglobin saturation was 96%. The patient walked 365 m with no stops during testing. During the walk the oxyhemoglobin saturation remained in the range of 95% to 97%. Impression: No evidence of axial hemoglobin desaturation on this test.
--- NOTE | 2024-02-20 12:44 | WPDPFTINT ---
PFT Procedure Performed PFT Procedure Performed Spirometry with Pre/Post Bronchodilator Plethysmography (Lung Vol) Diffusing Cap (DLCO) Flow Vol Loop PFT Interpretation Lung volumes were measured with the body plethysmography method. Lung volumes are unremarkable. Spirometry showed normal expiratory flow rates and a normal FEV1 to FVC ratio of 64%. Following administration of a bronchodilator there was no significant increase in expiratory flow rates. Lung diffusion capacity is within the normal range at 97% predicted. In comparison to previous study in March of 2022, the post bronchodilator FVC and FEV1 as well as the lung diffusion capacity have not significantly changed. Impression: Spirometry, lung volumes, and lung diffusion capacity all within the normal range.
== END 2024-02-19 12:53 | disposition home or self-care (01) ==
PROVIDERS: PCP Family Medicine; Visit Provider Nurse Practitioner Family
DX: R06.09 Other forms of dyspnea (principal); J84.9 Interstitial pulmonary disease, unspecified; N28.89 Other specified disorders of kidney and ureter
CPT/HCPCS: 71250; 94060; 94618; 94726; 94729

== ENCOUNTER 2024-04-21 10:39 | Outpatient (CLI) | payer MEDICARE, SELFPAY ==
[2024-04-21 15:12] LABS: Eosinophils Absolute Auto 0.1 K/mm3 (0-0.3); Eosinophils Percent Auto 3.4 % (0-4.4); Hematocrit 42.9 % (42.0-52.0); Hemoglobin 13.9 g/dL (14.0-18.0); Immature Granulocyte Absolute 0.01 K/mm3 (0.00-0.031); Immature Granulocyte Percent A 0.2 % (0-0.5); Lymphocytes Absolute Auto 1.37 K/mm3 (0.9-3.2); Mean Corpuscular HGB Conc 32.4 g/dl (32-36); Mean Corpuscular Hemoglobin 32.3 pg (26-34); Mean Corpuscular Volume 99.8 fl (80-100); Mean Platelet Volume 9.8 fl (7.4-10.4); Monocytes Absolute Auto 0.4 K/mm3 (0.1-0.6); Monocytes Percent Auto 10.1 % (2.6-8.5); Neutrophils Absolute Auto 2.2 K/mm3 (1.3-6.7); Neutrophils Percent Auto 52.3 % (45.5-73.1); Platelet Count Result 209 k/mm3 (150-375); Red Cell Distribution Width 13.2 % (11.5-14.5); White Blood Count 4.2 K/mm3 (4.5-10.0)
[2024-04-21 15:39] LABS: Anion Gap 9 mmol/L (4-12); Blood Urea Nitrogen 16 mg/dL (9-20); Carbon Dioxide 29 mmol/L (22-30); Chloride 103 mmol/L (98-107); Potassium 4.1 mmol/L (3.4-5.0); Sodium 141 mmol/L (137-145)
[2024-04-21 15:40] LABS: Alanine Aminotransferase 22 U/L (6-50); Albumin Level 3.9 g/dL (3.5-5.1); Alkaline Phosphatase 43 U/L (38-126); Aspartate Amino Transferase 46 U/L (17-59); Bilirubin,Total 1.1 mg/dL (0.2-1.3); Calcium 8.6 mg/dL (8.4-10.2); Cholesterol 141 mg/dL (0-200); Estimated Glomerular Filt Rate > 60; Glucose 87 mg/dL (65-110); HDL Direct 35 mg/dL; Triglycerides 117 mg/dL (<150)
[2024-04-21 15:54] LABS: LDL Cholesterol Direct 82 mg/dL
[2024-04-21 16:11] LABS: Prostate Specific Antigen 1.3 ng/mL (< OR = 4.0)
[2024-04-21 16:37] LABS: Vitamin D 25 Hydroxy 70.5 ng/mL
[2024-04-21 16:46] LABS: Folic Acid 9.1 ng/mL (2.76->20)
== END 2024-04-21 10:40 | disposition home or self-care (01) ==
LOC: ANHGOSHLAB 10:41
PROVIDERS: PCP Family Medicine; Visit Provider Student in an Organized Health Care Education/Training Program
DX: E55.9 Vitamin D deficiency, unspecified (principal); E53.8 Deficiency of other specified B group vitamins; Z79.899 Other long term (current) drug therapy; R05.9 Cough, unspecified; Z12.5 Encounter for screening for malignant neoplasm of prostate
CPT/HCPCS: 36415; 80053; 80061; 82306; 82607; 82746; 84153; 84443; 85025; G0103

== ENCOUNTER 2024-05-05 11:43 | Outpatient (CLI) | payer MEDICARE, SELFPAY ==
--- NOTE | ~2024-05-05 | XR_ITS ---
XR hip RT 2V w AP pelvis 05/05/2024 12:03 Indication: Right hip pain Procedure: 3 views right hip including AP pelvis Comparison: No prior studies for comparison. Findings: Pelvic rings intact. Bilateral symmetric osteoarthritis of the hips. There are coarse prost ate calcifications in the lower pelvis. No fracture or traumatic malalignment. Impression: 1: Mild osteoarthritis of the hips. Reviewed, dictated and finalized at location B. Impression: 1: Mild osteoarthritis of the hips.
--- NOTE | ~2024-05-05 | XR_ITS ---
EXAMINATION: XR lumbar spine 2-3V DATE: 05/05/2024 12:03 INDICATION: Low back pain. TECHNIQUE: 3 views of lumbar spine were obtained. COMPARISON: Lumbar spine radiographs 04/09/2019, CT abdomen and pelvis 05/29/2022 FINDINGS: There is 19 degrees levoscoliosis of thoracolumbar spine. Vertebral body heights are normal . There is mildly decreased disc height at L2-L3 and moderately decreased disc height at L3-L4. There is severe facet joint osteoarthritis in lower lumbar spine. The left L5 pars defect seen by CT is no t visible. IMPRESSION: 1. Moderate lumbar spondylosis. 2. Thoracolumbar levoscoliosis. Reviewed, dictated and finalized at location A.
== END 2024-05-05 11:44 | disposition home or self-care (01) ==
PROVIDERS: PCP Family Medicine; Visit Provider Nurse Practitioner Family
DX: M47.896 Other spondylosis, lumbar region (principal); M16.0 Bilateral primary osteoarthritis of hip
CPT/HCPCS: 72100; 73502

== ENCOUNTER 2024-06-09 12:30 | Outpatient (RCR) | payer MEDICARE, SELFPAY ==
--- NOTE | 2024-05-13 14:40 | OPREHPOC ---
Outpatient Therapy Plan of Care This is a Multidisciplinary Plan of Care that may contain components documented by all disciplines (PT, OT, and ST.) PT Problem 1 PT Problem #1 Knowledge Deficit PT Goal 1 Goal / Goal Update Pt to be IND with issued HEP Target Visit 8 PT Problem 2 PT Problem #2 Pain PT Goal 1 Goal / Goal Update Pt to report R hip/low back pain no greater than 3 /10 in the last week. Target Visit 8 PT Goal 2 Goal / Goal Update Pt to report 75% improvement in overall symptoms. Target Visit 8 PT Problem 3 PT Problem #3 Impaired Functional Mobil PT Goal 1 Goal / Goal Update Pt to demonstrate a functional lift and carry with 20lb without compensations or pain. Target Visit 8 PT Goal 2 Goal / Goal Update Pt to demonstrate bed mobility without an increase in pain.
--- NOTE | 2024-05-13 14:40 | PTOPEVAL1 ---
Assessment and note entered by Daniela Mayer, PT, DPT Evaluation Information Assessment Status Evaluation Diagnosis low back pain ICD-10 Condition Codes (PT) Pain in low back M54.50 Subjective Information Pt states he has always been told one leg is longer than the other. He reports a 20+ year history of intermittent low back pain and has done rounds of physical therapy in the past. Pt states in January he started to get R sided low back pain, this was initially treated with a muscle relaxer and a cortisone injection. Heat seems to help more than the medication. At times this pain has gone down into his leg. Pt states he is very active, he goes hunting and fishing. Reported Pain Level Pain Score 2: Self Report Assessment PT Clinical Summary Pt presents to therapy today for his initial evaluation with a diagnosis of low back pain. Today he demonstrates R sided piriformis and paraspinal muscle tenderness, decreased flexibility of his R hamstring and piriformis compared to his L side. He demonstrates decreased lumbar motion d/t pain and mobility. Skilled therapy services are indicated to address the deficits noted above, to manage pain, and to return to PLOF. Plan of Care Interventions Electrical Stimulation,Gait Training,Hot Pack/Cold Pack,Manual Therapy,Neuro Re-education,Patient/ Caregiver Educati,Therapeutic Activities, Therapeutic Exercise PT Services Indicated Yes Treatment Frequency and 1x/wk for 8 visits Duration These treatments will address the objective and functional deficits as defined above. The patient will be advanced safely and appropriately in order for the patient to progress towards his/her prior level of function. Additional exercises will be introduced and as well as a comprehensive home exercise program upon discharge, if needed, ?to ensure carryover of functional gains achieved in the clinic. This treatment plan has been reviewed and agreement upon by the patient.
--- NOTE | 2024-06-09 14:40 | PTOPPROG ---
Assessment and note entered by Daniela Mayer, PT, DPT Evaluation Information Assessment Status Progress Diagnosis low back pain ICD-10 Condition Codes (PT) Pain in low back M54.50 Subjective Information Pt states he got a cortisone shot in his R knee and that helped with all of his pain substantially . He states he was just on a vacation and one day did 5 miles of walking moving around heavy luggage . He was able to complete the walk without an increase in pain. He reports excellent compliance with his HEP. Assessment PT Clinical Summary Pt has completed 3 visits of skilled therapy and a month long participation in his HEP. Pt is making good progress towards his therapy goals. He reports improving pain but continues to have discomfort with bending and lifting. Time spent today to provide extensive education regarding spinal alignment and lifting mechanics. He reports a good understanding with body mechanics practice and demonstration today. Planning to keep chart open to do another review of mechanics if needed. Plan of Care Interventions Electrical Stimulation,Gait Training,Hot Pack/Cold Pack,Manual Therapy,Neuro Re-education,Patient/ Caregiver Educati,Therapeutic Activities, Therapeutic Exercise PT Services Indicated Yes Treatment Frequency and follow up if needed Duration These treatments will address the objective and functional deficits as defined above. The patient will be advanced safely and appropriately in order for the patient to progress towards his/her prior level of function. Additional exercises will be introduced and as well as a comprehensive home exercise program upon discharge, if needed, ?to ensure carryover of functional gains achieved in the clinic. This treatment plan has been reviewed and agreement upon by the patient.
--- NOTE | 2024-08-03 09:12 | PTOPDC ---
Assessment and note entered by Daniela Mayer, PT, DPT Evaluation Information Assessment Status Discharge - Pt Not Present Diagnosis low back pain ICD-10 Condition Codes (PT) Pain in low back M54.50 Subjective Information Called and spoke with pt, Assessment PT Clinical Summary d/c to HEP per pt request.
== END 2024-08-03 13:03 | disposition home or self-care (01) ==
LOC: ANHGOSHPT 12:30
PROVIDERS: PCP Family Medicine; Visit Provider Nurse Practitioner Family
DX: M54.50 Low back pain, unspecified (principal)
CPT/HCPCS: 97110; 97140; 97161; 97530

== ENCOUNTER 2024-11-09 10:59 | Outpatient (CLI) | payer MEDICARE, SELFPAY ==
--- OUTSIDE RECORDS SUMMARY | 2024-11-09 13:11 | XMS_ITS | Clinical Summary ---
Author Organization [facility] Address [address] [place] [id number] Care Team Providers Care Chemist Water Purification Name Role Phone New Referring, Provider Primary Care Provider Un available Allergies Active Allergy Reactions Criticality Noted Date Comments Iodine Hives 03/03/2019 IVP dye Erythromycin GI Upset 03/03/2019 Diarrhea/cramping Penicillins Hives Medium 03/03/2019 Medications dabigatran 75 MG Cap Take 75 mg by mouth 2 (two) times daily. Active pravastatin 40 MG tablet Take 40 mg by mouth nightly at bedtime. Active metoprolol tartrate 25 MG tablet Take 25 mg by mouth daily. Active amiodarone 100 MG tablet Take 100 mg by mouth daily. Active esomeprazole 40 MG capsule Take 40 mg by mouth every morning before breakfast. Active sacubitril-vals julianna (ENTRESTO) 49-51 MG tablet Take 1 tablet by mouth 2 (two) times daily. Active fluticasone propionate 50 MCG/ACT nasal spray 1 spray by Nasal route daily. Active azelastine 0.1 % nasal spray 1 spray by Nasal route 2 (two) times daily. Use in each nostril as directed Active sildenafil 100 MG tablet Take 100 mg by mouth as needed for Erectile Dysfunction. Active Active Problems Problem Noted Date Diagnosed Date Nuclear age-related cataract, right eye 04/13/20 19 Social History Tobacco Use Types Packs/Day Years Used Date Smoking Tobacco: Never Smokeless Tobacco: Never Sex and Gender Information Value Date Recorded Sex Assigned at Not on file Legal Sex Male 3:41 PM CDT Gender Identity Not on file Sexual Orientation Not on file Last Filed Vital Signs Vital Sign Reading Time Taken Comments Blood Pressure 102/67 04/13/2019 9:00 AM CDT Pulse 61 04/13/2019 9:00 AM CDT Temperature 36.2 C (97.1 F) 04/13/2019 9:00 AM CDT Respiratory Rate 12 04/13/2019 9:00 AM CDT Oxygen Saturation 97% 04/13/2019 9:00 AM CDT Inhaled Oxygen Concentration - - Weight 68 kg (150 lb) 04/10/2019 1:33 PM CDT Height 180.3 cm (5' 11 ) 04/10/2019 1:33 PM CDT Body Mass Index 20.92 04/10/2019 1:33 PM CDT Plan of Treatment Health Maintenance Due Date Last Done Comments Zoster Vaccines (1 of 2) 1993 Annual Medicare Wellness Visit 2008 DTaP, Tdap and Td Vaccines ( 1 - Tdap) 04/03/2009 04/02/2009, 08/12/2002 RSV Immunization or 60+ Years (1 - 1-dose 75+ series) 2018 COVID-19 Vaccine (2023-2 5 season) 2024 Influenza Adult (#1) 2024 05/10/2020, 06/19/2019, 06/10/2018 Pneumococcal Vaccine: 65+ Years Completed 05/17/2016, 05/17/2009 Meningococcal B Vaccine Aged Out No l onger eligible based on patient's age to complete this topic Meningococcal Vaccine Aged Out No didi shira eligible based on patient's age to complete this topic RSV Immunizations Under 20 Months Aged Out No longer eligible b ased on patient's age to complete this topic Medical Devices Implanted Type Area Senior Accountant Analyst Device Identifier Shelf Expiration Date Model / Serial / Lot Iol Toric Lens [id number] - [id number] Implanted:Qty: 1 on 03/09/2019 by Samir Hatfield MD at [facility] Lens Left: Eye [employer] [employer] 01/30/2022 [facility] / [id number] / Iol [facility]ens [facility] - [id number] Implanted:Qty: 1 on 04/13/2019 by Samir Hatfield MD at [facility] Lens [employer] [facility] [id number] / Insurance [facility] MEDICARE Care Teams Chemist Water Purification Relationship Specialty Start Date End Date New Referring, Provider PCP - General UNKNOWN PHYSICIAN SPECIALTY 03/06/19
--- OUTSIDE RECORDS SUMMARY | 2024-11-09 13:11 | XMS_ITS | Encounter Summary ---
Author Organization [facility] Address [address] [place] [address] Care Team Providers Care Residential Sales Consultant Name Role Phone Tomy Barcenas MD Primary Care Provider [phone] Romelia Fu MD Primary Care Provider + [phone] Encounter Details Date Type Department Care Team (Late Contact Info) Description 10/21/2019 Lab Requisition [facility] [address] [place] [phone] Bossman Jain MD [address] [place] [address] Social History Tobacco Use Types Packs/Day Years Used Date Smoking Tobacco: Never Assessed Sex and Gender Information Value Date Recorded Sex Assigned at Not on file Gender Identity Not on file Sexual Orientation Not on file documented as of this encounter Plan of Treatment Upcoming Encounters Date Type Department Care Team (Late Contact Info) Description 12/08/2024 11:15 AM CDT Office Visit [facility] - ENT [address] [place] [phone] Darwin Jaimes MD [address] [place] [address] [place] [address] documented as of this encounter Procedures Procedure Name Priority Date/Time Associated Diagnosis Comments DERMATOPATHOLOGY Routine 10/20/2019 12:0 0 AM [facility] documented in this encounter Results * DERMATOPATHOLOGY (10/20/2019 12:00 AM [facility]) Case Report Dermatopathology Report Case: [id number] Authorizing Provider: Bossman Jain MD Collected: 10/20/2019 12:00 AM Ordering Location: [facility] Received: 10/21/2019 11:59 AM Pathologist: Francisca Wade MD Specimen: Skin, left mid clavicle 0 3:53 PM [facility] Final Diagnosis Specimen A. SKIN, left mid clavicle: BASAL CELL CARCINOMA, NODULAR TYPE (C44.619) 0 3:53 PM [facility] Clinical History R/O BCC. 0 3:53 PM [facility] Gross Description Specimen A: Received is one formalin filled container labeled with the patient's name and designated left mid clavicle. The specimen consists of a shave biopsy measuring 10x8x1 mm. Jar 0. 0 3:53 PM [facility] Microscopic Description Specimen A. SKIN, left mid clavicle: Within the dermis there are aggregates of basaloid cells with a high nuclear to cytoplasmic ratio and peripheral palisading. 0 3:53 PM [facility] Disclaimer An external and internal positive and negative controls are appropriate for the histochemical, immunohistochemical and immunofluorescence stain(s) in this case (if any), except where stated explicitly. The performance characteristics of the stain(s) cited in this report were developed and its performance characteristic determined by the Dermatopathology Laboratory at [facility], directed by Dr. Niko Wade. These tests need not be, and therefore are not, approved by the [place] Food and Drug Administration. The tests are used for clinical purposes. Billing Codes Specimen Charges Stain Charges 71357 1 0 3:53 PM [facility] Embedded Images 0 3:53 PM [facility] Pathology/Cytolog y TISSUE SPECIMEN FROM SKIN / Unknown 10/20/2019 10/21/2019 11:59 AM [facility] Bossman Jain MD LAB - PATHOLOGY/CYTO LOGY ORDERABLES DERMATOPATHOLOGY LABORATORY [facility] - Department of Dermatology [facility], 5th Floor Lab B [address] [phone] documented in this encounter Visit Diagnoses Not on filedocumented in this encounter Care Teams Residential Sales Consultant Relationship Specialty Start Date End Date Tomy Barcenas MD [address] [place] [address] PCP - General 10/02/11 05/17/24 Romelia Fu MD [address] [place] [phone] PCP - General Family Medicine 05/18/24 documented as of this encounter
--- OUTSIDE RECORDS SUMMARY | 2024-11-09 13:11 | XMS_ITS | Encounter Summary ---
Author Organization [facility] Address [address] [facility] [place] [address] Care Team Providers Care Real Estate Specialist Name Role Phone Tomy Barcenas MD Primary Care Provider [phone] Romelia Fu MD Primary Care Provider + [phone] Encounter Details Date Type Department Care Team (Late Contact Info) Description 12/04/2023 Lab Requisition [facility] [address] [place] [phone] Bossman Jain MD [address] [place] [address] Social History Tobacco Use Types [...] Office Visit [facility]NT [address] [place] [phone] Darwin Jaimes MD [address] [place] [address] [place] [address] documented as of this encounter Procedures Procedure Name Priority Date/Time Associated Diagnosis Comments DERMATOPATHOLOGY Routine 12/03/2023 12:0 0 AM CDT documented in this encounter Results * DERMATOPATHOLOGY (12/03/2023 12:00 AM CDT) Case Report Dermatopathology Report Case: [id number] Authorizing Provider: Bossman Jain MD Collected: 12/03/2023 12:00 AM Ordering Location: [facility] - Received: 12/05/2023 06:32 AM DermPath Lab Pathologist: Suha Mccallum MD Specimens: A) - Skin, left cheek anterior to ear behind sideburn B) - Skin, left superior deltoid C) - Skin, left lower deltoid D) - Skin, right lower deltoid E) - Skin, right medial lower leg 3:14 PM CDT DERMATOPATHOLOGY LABORATORY Final Diagnosis Specimen A. SKIN, left cheek anterior to ear behind sideburn: ACTINIC KERATOSIS, LICHENOID (L57.0) Specimen B. SKIN, left superior deltoid: BASAL CELL CARCINOMA, NODULAR TYPE (C44.619) Specimen C. 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 SKIN, right lower deltoid: PIGMENTED SEBORRHEIC KERATOSIS (L82.1) Specimen E. 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 D: R/O DYSPLASTIC NEVUS vs ISK. E: R/O SCC, BCC, HAK. 3:14 PM CDT DERMATOPATHOLOGY LABORATORY Gross Description Specimen A: Received is one formalin filled container labeled with the patient's name and designated left cheek anterior to ear behind sideburn. The specimen consists of a shave biopsy measuring 5x6x1 mm. Jar 0. Specimen B: Received is one formalin filled container labeled with the patient's name and designated left superior deltoid. The specimen consists of a shave biopsy measuring 55l18q6 mm. Jar 0. Specimen C: Received is one formalin filled container labeled with the patient's name and designated left lower deltoid. The specimen consists of a shave biopsy measuring 9x11x3 mm. Jar 0. Specimen D: Received is one formalin filled container labeled with the patient's name and designated right lower deltoid. The specimen consists of a shave biopsy measuring 63s01t7 mm. Jar 0. Specimen E: Received is one formalin filled container labeled with the patient's name and designated right medial lower leg. The specimen consists of a shave biopsy measuring 04w58y0 mm. Jar 0. 4 3:14 PM [facility] DERMATOPATH[facility]Y [facility]ORATORY Microscopic Description Specimen A. SKIN, left cheek anterior to ear behind sideburn: There is focal parakeratosis. The lower half of the epidermis shows disorderly maturation of keratinocytes with nuclear pleomorphism. The dermis shows a band-like, chronic inflammatory infiltrate with occasional apoptotic keratinocytes and some basal vacuolar alteration. Specimen B. SKIN, left superior deltoid: Within the dermis there are aggregates of basaloid cells with a high nuclear to cytoplasmic ratio and peripheral palisading. Specimen C. SKIN, left lower deltoid: The epidermis shows parakeratosis, full thickness disorderly maturation of keratinocytes, mitoses at different levels, and dyskeratotic cells. Specimen D. SKIN, right lower deltoid: Sections show an acanthotic lesion composed of relatively uniform keratinocytes. There is hyperkeratosis and pseudo horn cysts. Pigment is present in the keratinocytes composing this tumor. Specimen E. SKIN, right medial lower leg: Arising in the epidermis and extending into the dermis there are irregularly shaped aggregates of keratinocytes showing evidence of premature cornification. 4 3:14 PM [facility] DERMATOPATHOLOGY LABORATORY Disclaimer An external and internal positive and negative controls are appropriate for the histochemical, immunohistochemical and immunofluorescence stain(s) in this case (if any), except where stated explicitly. The performance characteristics of the stain(s) cited in this report were developed and its performance characteristic determined by the Dermatopathology Laboratory at [facility], directed by Dr. Niko Wade. These tests need not be, and therefore are not, approved by the [place] Food and Drug Administration. The tests are used for clinical purposes. Billing Codes Specimen Charges Stain Charges 07451 03620 [id number] 86139 18881 1 1 1 1 1 4 3:14 PM T DERMATOPATHOLOGY LABORATORY Embedded Images 3:14 PM CDT DERMATOPATHOLOGY LABORATORY Pathology/Cytology TISSUE SPECIMEN FROM SKIN / Unknown 12/03/2023 12/05/2023 6:32 AM CDT Miscellaneous samples (specimen) TISSUE SPECIMEN FROM SKIN / Unknown 12/03/2023 12/05/2023 6:32 AM CDT Miscellaneous samples (specimen) TISSUE SPECIMEN FROM SKIN / Unknown 12/03/2023 12/05/2023 6:32 AM CDT Miscellaneous samples (specimen) TISSUE SPECIMEN FROM SKIN / Unknown 12/03/2023 12/05/2023 6:32 AM CDT Miscellaneous samples (specimen) TISSUE SPECIMEN FROM SKIN / Unknown 12/03/2023 12/05/2023 6:32 AM CDT Bossman Jain MD LAB - PATHOLOGY/CYTO LOGY ORDERABLES DERMATOPATHOLOGY LABORATORY [facility] - Department of Dermatology [facility] [address] [place] [address] [phone] documented in this encounter Visit Diagnoses Not on filedocumented in this encounter Care Teams Real Estate Specialist Relationship Specialty Start Date End Date Tomy Barcenas MD [address] [place] [address] PCP - General 10/02/11 05/17/24 Romelia Fu MD [address] [place] [phone] PCP - General Family Medicine 05/18/24 documented as of this encounter
--- OUTSIDE RECORDS SUMMARY | 2024-11-09 13:11 | XMS_ITS | Clinical Summary ---
Author Organization [facility] [employer] Address [address] [place] [place] [address] Care Team Providers Care Channel Machine Operator Name Role Phone Romelia Fu MD Primary Care Provider [phone] Source Comments [facility],non-owned Affiliates and Associated Physician Practices is amultiple site organization consisting of ambulatory clinics and hospital sitesin [place], [place], [place] and [place]. This disclosure is being madepursuant to the Care Everywhere program and may not contain all information available regarding this patient. Last updated 18.[facility] [employer] Allergies Active Allergy Reactions Criticality Noted Date Comments Contrast-Iodinated Agents For Ct/Other Urticaria Medium 06/27/2018 Hives developed 4 days after cardiac cath, no other aggravating agent could be identified. Erythromycin GI Discomfort,Nausea and/or Vomiting Low 12/02/2018 Diarrhea/cramping Iodine Urticaria Medium 03/03/2019 IVP dye Penicillins Urticaria,Rash Medium 03/24/2018 Medications * Be aware that medications may not be up to date on this document. Alwaysverify current medications with the patient. Medication Sig Dispensed Refills Start Date End Date Status Cholecalciferol 1.25 MG (48939 UT) Take 1 (one) tablet by mouth once daily Active dabigatran (praDAXA) 150 MG capsule Take 1 (one) capsule by mouth 2 times daily 09/09/2023 Active ferrous sulfate 325 (65 FE) MG tablet Take 1 (one) tablet by mouth daily with breakfast Active Multaq 400 MG tablet Take 1 (one) tablet by mouth 2 times daily with morning and evening meal Active finasteride (Proscar) 5 MG tablet Take 1 (one) tablet by mouth once daily 11/15/2023 Active Xhance 93 MCG/ACT EXHU Inhale 1 puff by mouth as directed 06/03/2023 Active cyanocobalamin, vitamin B-12, 2500 MCG tablet Dissolve 1 (one) tablet under the tongue once 12/02/2023 Active metoprolol succinate XL 24hr (Toprol XL) 25 MG tablet Take 1 (one) tablet by mouth once daily 03/29/2023 Active olopatadine (Patanase) 0.6 % nasal solution [place] 1 (one) spray into each nostril 2 times daily 02/26/2024 Active pantoprazole EC (Protonix) 40 MG tablet Take 1 (one) tablet by mouth once daily Active pravastatin (Pravachol) 40 MG tablet Take 1 (one) tablet by mouth once daily 03/10/2024 Active Entresto 24-26 MG tablet Take 0.5 (one-half) tablet by mouth 2 times daily 06/20/2023 Active tadalafil (Cialis) 20 MG tablet Take 1 (one) tablet by mouth once daily as needed For erectile dysfunction. Active Stiolto Respimat 2.5-2.5 MCG/ACT Inhale 1 puff by mouth as directed Active methylPREDNISolone (Medrol Dosepak) 4 MG tablet Take 1 (one) tablet by mouth as directed Take as directed by mouth per package instructions. Active diphenhydrAMINE (Benadryl) 50 MG capsule Take 1 (one) capsule by mouth every 6 hours as needed Take [address] scan for allergy. Instructions: 07/08/2024 Active fexofenadine (Dbebie) 180 MG tablet Take 1 (one) tablet by mouth every morning Active Psyllium (Konsyl Daily Psyllium Fiber) 83 % PACK Take 6 g by mouth 3 times daily Active Encounters Date Type Department Care Team Description 10/20/2024 Travel 09/04/2024 Orders Only [facility] - ENT [address] [place] [address] Patito Deng, telephone collector throat clearing; Chronic cough; Muscle tension dysphonia; PND (post-nasal drip) 09/04/2024 Orders Only [facility] - ENT [address], [address] [place] [address] Alice Benson APRN-GLORIA Chronic throat clearing ; Chronic cough; Muscle tension dysphonia; PND (post-nasal drip) 09/01/2024 8:00 AM BEHAVIOUR SUPPORT TEACHER Office Visit [facility] - ENT [address] [place] [phone] Renetta Amaya SLP Muscle tension dysphonia (Primary Dx); Chronic cough; Chronic throat clearing 09/01/2024 7:45 AM BEHAVIOUR SUPPORT TEACHER Office Visit [facility] - ENT [address] [place] [phone] Darwin Jaimes MD Muscle tension dysphonia (Primary Dx); Chronic cough; Chronic throat clearing; Hoarseness; JOHANNE (obstructive sleep apnea) 09/01/2024 Travel from Last 3 Months Immunizations Name Administration Dates Next Due INFLUENZA VACCINE 06/02/2024,06/08/2021 Family History Medical History Relation Name Comments Hearing Loss - Unspecified Brother Arthritis - Rheumatoid Father Hearing Loss - Unspecified Father Arthritis - Rheumatoid Mother CAD (Coronary Artery Disease) Mother CAD (Coronary Artery Disease) Sister Relation Name Status Comments Brother Father Mother Sister Social History Tobacco Use Types Packs/Day Years Used Date Smoking Tobacco: Never Smokeless Tobacco: Never Tobacco Cessation:Counseling Given: Not Answered Alcohol Use Standard Drinks/Week Comments Not Currently 0 (1 standard drink = 0.6 oz pur e alcohol) rarely Sex and Gender Information Value Date Recorded Sex Assigned at Not on file Gender Identity Not on file Sexual Orientation Not on file Last Filed Vital Signs Vital Sign Reading Time Taken Comments Blood Pressure 134/88 09/01/2024 7:54 AM BEHAVIOUR SUPPORT TEACHER Pulse 64 09/01/2024 7:54 AM BEHAVIOUR SUPPORT TEACHER Temperature - - Respiratory Rate - - Oxygen Saturation - - Inhaled Oxygen Concentration - - Weight 72.1 kg (159 lb) 09/01/2024 7:54 AM BEHAVIOUR SUPPORT TEACHER Height 175.3 cm (5' 9 ) 09/01/2024 7:54 AM BEHAVIOUR SUPPORT TEACHER Body Mass Index 23.48 09/01/2024 7:54 AM BEHAVIOUR SUPPORT TEACHER Plan of Treatment Upcoming Encounters Date Type Department Care Team (Late st Contact Info) Description 12/08/2024 11:15 AM CDT Office Visit [facility] - [facility]NT [address] [facility], [place] [address] Darwin Jaimes MD [facility] [place] [address] Health Maintenance Due Date Last Done Comments DTAP/TDAP/TD VACCINES (1 - Tdap) 1962 PNEUMOCOCCAL VACCINE 50+ (1 of 1 - PCV) 1993 ZOSTER VACCINE (1 of 2) 1993 Respiratory Syncytial Virus (RSV) Vaccine Pt: or over 60 yrs (1 - 1-dose 75+ series) 2018 COVID-19 VACCINE ( - 2023-2 5 season) 2024 DEPRESSION SCREENING 09/02/2024 MEDICARE AWV CALENDAR YEAR 2024 INFLUENZA VACCINE Completed 06/02/2024, 06/08/2021 HEPATITIS B VACCINE Aged Out No longe r eligible based on patient's age to complete this topic HIB VACCINE Aged Out No longer eligi ble based on patient's age to complete this topic HPV VACCINE Aged Out No longer eligi ble based on patient's age to complete this topic MENINGOCOCCAL (Group B) VACCINE Aged Out No longer eligible b ased on patient's age to complete this topic MENINGOCOCCAL VACCINE Aged Out No didi shira eligible based on patient's age to complete this topic Care Teams Channel Machine Operator Relationship Specialty Start Date End Date Romelia Fu MD [address] [place] [address] PCP - General Family Medicine 05/18/24
--- OUTSIDE RECORDS SUMMARY | 2024-11-09 13:11 | XMS_ITS | Encounter Summary ---
Author Organization [facility] Address [address] [place] [address] Care Team Providers Care Auditor Internal Name Role Phone Tomy Barcenas MD Primary Care Provider [phone] Romelia Fu MD Primary Care Provider [phone] Encounter Details Date Type Department Care Team (Late Contact Info) Description 02/27/2024 Lab Requisition [facility] - DermPath Lab [address] [place] [address] Char Yepez MD [address] [place] [address] Social History Tobacco Use Types Packs/Day Years [...] Visit [facility] [address] [place] [phone] Darwin Jaimes MD [address] [place] [address] [place] [address] documented as of this encounter Procedures Procedure Name Priority Date/Time Associated Diagnosis Comments DERMATOPATHOLOGY Routine 02/27/2024 2:51 PM CDT documented in this encounter Results * DERMATOPATHOLOGY (02/27/2024 2:51 PM CDT) Case Report Dermatopathology Report Case: [id number] Authorizing Provider: Char Yepez MD Collected: 02/27/2024 02:51 PM Ordering Location: [facility] - Received: 03/02/2024 08:02 AM DermPath Lab Pathologist: Mary Mccallum MD Specimen: Skin, left superior deltoid 2:49 PM CDT DERMATOPATHOLOGY LABORATORY Final Diagnosis Specimen A. SKIN, left superior deltoid: DERMAL SCAR RESIDUAL BASAL CELL CARCINOMA NOT IDENTIFIED (L90.5) 2:49 PM CDT DERMATOPATHOLOGY LABORATORY Clinical History Bx proven BCC 2:49 PM CDT DERMATOPATHOLOGY LABORATORY Gross Description Specimen A: Received is one formalin filled container labeled with the patient's name and designated left superior deltoid.The specimen consists of an ellipse measuring 28r33d7 mm and is oriented with the suture/notch at the 12 o'clock position labeled on the requisition as suture. The 12 to 6 o'clock margin is inked green. The 6 o'clock to 12 o'clock margin is inked red. The 12 o'clock tip is submitted in cassette 1. The 6 o'clock tip is submitted in cassette 2. The remainder of the ellipse is serially sectioned and submitted in cassettes 3-4. Jar 0. 2:49 PM CDT DERMATOPATHOLOGY LABORATORY Microscopic Description Specimen A. SKIN, left superior deltoid: There are fibroblasts and collagen bundles oriented parallel to the skin surface. There are elongated blood vessels, some of which are oriented perpendicular to the skin surface. No basal cell carcinoma is identified. 2:49 PM CDT DERMATOPATHOLOGY LABORATORY Disclaimer An external and internal positive and negative controls are appropriate for the histochemical, immunohistochemical and immunofluorescence stain(s) in this case (if any), except where stated explicitly. The performance characteristics of the stain(s) cited in this report were developed and its performance characteristic determined by the Dermatopathology Laboratory at [facility], directed by Dr. Niko Wade. These tests need not be, and therefore are not, approved by the [place] Food and Drug Administration. The tests are used for clinical purposes. Billing Codes Specimen Charges Stain Charges 09922 1 4 2:49 PM CDT DERMATOPATHOLOGY LABORATORY Embedded Images 4 2:49 PM CDT DERMATOPATHOLOGY LABORATORY Pathology/Cytolo gy TISSUE SPECIMEN FROM SKIN / Unknown 02/27/2024 2:51 PM CDT 03/02/2024 8:02 AM CDT Char Yepez MD LAB - PATHOLOGY/CYTO LOGY ORDERABLES DERMATOPATHOLOGY LABORATORY [facility] - Department of Dermatology [address], [address] [phone] documented in this encounter Visit Diagnoses Not on filedocumented in this encounter Care Teams Auditor Internal Relationship Specialty Start Date End Date Tomy Barcenas MD [address] [address] PCP - General 10/02/11 05/17/24 Romelia Fu MD [address] [place] [phone] PCP - General Family Medicine 05/18/24 documented as of this encounter
--- OUTSIDE RECORDS SUMMARY | 2024-11-09 13:11 | XMS_ITS | Encounter Summary ---
Author Organization [facility] Address [address] [place] [address] Care Team Providers Care Tree Trimmer Helper Name Role Phone Tomy Barcenas MD Primary Care Provider [phone] Romelia Fu MD Primary Care Provider [phone] Encounter Details Date Type Department Care Team (Late Contact Info) Description 05/12/2024 Lab Requisition [facility] - Derm[facility] Lab [address] [place] [address] Char Yepez MD [address] [place] [address] Social History Tobacco Use Types Packs/Day Years [...] Visit [facility] - ENT [address] [place] [phone] Darwin Jaimes MD [address] [place] [address] [place] [address] documented as of this encounter Procedures Procedure Name Priority Date/Time Associated Diagnosis Comments DERMATOPATHOLOGY Routine 05/12/2024 3:35 PM CDT documented in this encounter Results * DERMATOPATHOLOGY (05/12/2024 3:35 PM CDT) Case Report Dermatopathology Report Case: [id number] Authorizing Provider: Char Yepez MD Collected: 05/12/2024 03:35 PM Ordering Location: [facility] - Received: 05/14/2024 06:48 AM DermPath Lab Pathologist: Suha Mccallum MD Specimen: Skin, right lateral proximal extensor forearm 1:32 PM CDT DERMATOPATHOLOGY LABORATORY Final Diagnosis Specimen A. 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 The 12 to 6 o'clock margin is inked green. The 6 o'clock to 12 o'clock margin is inked red. The 12 o'clock tip is submitted in cassette 1. The 6 o'clock tip is submitted in cassette 2. The remainder of the ellipse is serially sectioned and submitted in cassettes 3-4. Jar 0. 1:32 PM CDT DERMATOPATHOLOGY LABORATORY Microscopic Description Specimen A. SKIN, right lateral proximal extensor forearm: There are fibroblasts and collagen bundles oriented parallel to the skin surface. There are elongated blood vessels, some of which are oriented perpendicular to the skin surface. No residual squamous cell carcinoma is identified. In block A1, there are nests of melanocytes at the dermal-epidermal junction and within the dermis. This lesion is present within the medial tip, extending to the inferior margin of the specimen. 1:32 PM CDT DERMATOPATHOLOGY LABORATORY Disclaimer An external and internal positive and negative controls are appropriate for the histochemical, immunohistochemical and immunofluorescence stain(s) in this case (if any), except where stated explicitly. The performance characteristics of the stain(s) cited in this report were developed and its performance characteristic determined by the Dermatopathology Laboratory at [facility], directed by Dr. Niko Wade. These tests need not be, and therefore are not, approved by the [place] Food and Drug Administration. The tests are used for clinical purposes. Billing Codes Specimen Charges Stain Charges 03079 1 4 1:32 PM CDT DERMATOPATHOLOGY LABORATORY Embedded Images 4 1:32 PM CDT DERMATOPATHOLOGY LABORATORY Pathology/Cytolo gy TISSUE SPECIMEN FROM SKIN / Unknown 05/12/2024 3:35 PM CDT 05/14/2024 6:48 AM CDT Char Yepez MD LAB - PATHOLOGY/CYTO LOGY ORDERABLES DERMATOPATHOLOGY LABORATORY [facility] - Department of Dermatology [facility] [address] [place] [address], [address] [phone] documented in this encounter Visit Diagnoses Not on filedocumented in this encounter Care Teams Tree Trimmer Helper Relationship Specialty Start Date End Date Tomy Barcenas MD [address] [address] PCP - General 10/02/11 05/17/24 Romelia Fu MD [address] [place] [phone] PCP - General Family Medicine 05/18/24 documented as of this encounter
--- OUTSIDE RECORDS SUMMARY | 2024-11-09 13:11 | XMS_ITS | Encounter Summary ---
Author Organization [facility] Address [address] [place] [address] Care Team Providers Care Physician/Internist Name Role Phone Tomy Barcenas MD Primary Care Provider [phone] Romelia Fu MD Primary Care Provider [phone] Encounter Details Date Type Department Care Team (Late Contact Info) Description 03/10/2024 Lab Requisition [facility] - Derm[facility] Lab [address] [place] [address] Char Yepez MD [address] [place] [address] Social History Tobacco Use Types Packs/Day Years [...] Visit [facility] - ENT [address] [place] [phone] Darwin Jaimes MD [address] [place] [address] [place] [address] documented as of this encounter Procedures Procedure Name Priority Date/Time Associated Diagnosis Comments DERMATOPATHOLOGY Routine 03/10/2024 3:24 PM CDT documented in this encounter Results * DERMATOPATHOLOGY (03/10/2024 3:24 PM CDT) Case Report Dermatopathology Report Case: [id number] Authorizing Provider: Char Yepez MD Collected: 03/10/2024 03:24 PM Ordering Location: [facility] - Received: 03/12/2024 07:56 AM DermPath Lab Pathologist: Suha Mccallum MD Specimen: Skin, left lower deltoid 2:59 PM CDT DERMATOPATHOLOGY LABORATORY Final Diagnosis Specimen A. SKIN, left lower deltoid: DERMAL SCAR RESIDUAL SQUAMOUS CELL CARCINOMA NOT IDENTIFIED (L90.5) ACTINIC KERATOSIS; NOT PRESENT AT MARGIN (L57.0) 2:59 PM CDT DERMATOPATHOLOGY LABORATORY Clinical History SCCIS 2:59 PM CDT DERMATOPATHOLOGY LABORATORY Gross Description Specimen A: Received is one formalin filled container labeled with the patient's name and designated left lower deltoid.The specimen consists of an ellipse measuring 37b71y8 mm and is oriented with the suture/notch at the 12 o'clock position labeled on the requisition as superior. The 12 to 6 o'clock margin is inked green. The 6 o'clock to 12 o'clock margin is inked red. The 12 o'clock tip is submitted in cassette 1. The 6 o'clock tip is submitted in cassette 2. The remainder of the ellipse is serially sectioned and submitted in cassettes 3-4. Jar 0. 2:59 PM CDT DERMATOPATHOLOGY LABORATORY Microscopic Description Specimen A. SKIN, left lower deltoid: There are fibroblasts and collagen bundles oriented parallel to the skin surface. There are elongated blood vessels, some of which are oriented perpendicular to the skin surface. No residual squamous cell carcinoma is identified. There is also focal parakeratosis. The underlying epidermis shows disorderly maturation of keratinocytes with nuclear pleomorphism. 2:59 PM CDT DERMATOPATHOLOGY LABORATORY Disclaimer An external and internal positive and negative controls are appropriate for the histochemical, immunohistochemical and immunofluorescence stain(s) in this case (if any), except where stated explicitly. The performance characteristics of the stain(s) cited in this report were developed and its performance characteristic determined by the Dermatopathology Laboratory at [facility], directed by Dr. Niko Wade. These tests need not be, and therefore are not, approved by the [place] Food and Drug Administration. The tests are used for clinical purposes. Billing Codes Specimen Charges Stain Charges 34897 1 4 2:59 PM CDT DERMATOPATHOLOGY LABORATORY Embedded Images 4 2:59 PM CDT DERMATOPATHOLOGY LABORATORY Pathology/Cytolo gy TISSUE SPECIMEN FROM SKIN / Unknown 03/10/2024 3:24 PM CDT 03/12/2024 7:56 AM CDT Char Yepez MD LAB - PATHOLOGY/CYTO LOGY ORDERABLES DERMATOPATHOLOGY LABORATORY [facility] - Department of Dermatology [address], [address] [phone] documented in this encounter Visit Diagnoses Not on filedocumented in this encounter Care Teams Physician/Internist Relationship Specialty Start Date End Date Tomy Barcenas MD [address] [place] [address] PCP - General 10/02/11 05/17/24 Romelia Fu MD [address] [place] [address] PCP - General Family Medicine 05/18/24 documented as of this encounter
--- OUTSIDE RECORDS SUMMARY | 2024-11-09 13:11 | XMS_ITS | Referral Summary ---
Author Organization [facility] Address [address] [facility] [place] [address] Care Team Providers Care Global Sales Executive Name Role Phone Romelia Fu MD Primary Care Provider [phone] Source Comments [facility],non-owned Affiliates and Associated Physician Practices is amultiple site organization consisting of ambulatory clinics and hospital sitesin [place], [place], [place] and [place]. This disclosure is being madepursuant to the Care Everywhere program and may not contain all information available regarding this patient. Last updated 18.[facility] Encounters Date Type Department Care Team Description 10/20/2024 Travel 09/04/2024 Orders Only [facility] - ENT [address] [place] [phone] Patito Deng, welding machine operator plasma arc throat clearing; Chronic cough; Muscle tension dysphonia; PND (post-nasal drip) 09/04/2024 Orders Only [facility] - [facility]NT [address], [address] [phone] Alice Benson APRN-GLORIA Chronic throat clearing ; Chronic cough; Muscle tension dysphonia; PND (post-nasal drip) 09/01/2024 Travel 09/01/2024 8:00 AM DISPENSARY CLERK Office Visit [facility] - ENT [address] [place] [phone] Renetta Amaya, EXTRUDING PRESS ADJUSTER Muscle tension dysphonia (Primary Dx); Chronic cough; Chronic throat clearing 09/01/2024 7:45 AM DISPENSARY CLERK Office Visit [facility] - ENT [address] [place] [phone] Darwin Jaimes MD Muscle tension dysphonia (Primary Dx); Chronic cough; Chronic throat clearing; Hoarseness; JOHANNE (obstructive sleep apnea) from Last 3 Months Allergies Active Allergy Reactions Criticality Noted Date [...] Date End Date Status Cholecalciferol 1.25 MG (61451 UT) Take 1 (one) tablet by mouth [...] Active olopatadine (Patanase) 0.6 % nasal solution [place] 1 (one) spray into each nostril 2 [...] scan for allergy. Instructions: 07/08/2024 Active fexofenadine (Debbie) 180 MG tablet Take 1 (one) tablet by mouth every morning Active Psyllium (Konsyl Daily Psyllium Fiber) 83 % PACK Take 6 g by mouth 3 times daily Active Immunizations Name Administration Dates Next Due INFLUENZA VACCINE 06/02/2024,06/08/2021 Social History Tobacco Use Types Packs/Day Years [...] Comments Blood Pressure 134/88 09/01/2024 7:54 AM DISPENSARY CLERK Pulse 64 09/01/2024 7:54 AM DISPENSARY CLERK Temperature - - Respiratory Rate - - Oxygen Saturation - - Inhaled Oxygen Concentration - - Weight 72.1 kg (159 lb) 09/01/2024 7:54 AM DISPENSARY CLERK Height 175.3 cm (5' 9 ) 09/01/2024 7:54 AM DISPENSARY CLERK Body Mass Index 23.48 09/01/2024 7:54 AM DISPENSARY CLERK Plan of Treatment Upcoming Encounters Date Type Department Care Team (Late st Contact Info) Description 12/08/2024 11:15 AM CDT Office Visit [facility] - ENT [facility] [place] [phone] Darwin Jaimes MD [address] [place] [address] DE[place] [address] Care Teams Global Sales Executive Relationship Specialty Start Date End Date Romelia Fu MD [address] [place] [address] PCP - General Family Medicine 05/18/24
--- OUTSIDE RECORDS SUMMARY | 2024-11-09 13:11 | XMS_ITS | Encounter Summary ---
Author Organization [facility] Address [address] [place] [address] Care Team Providers Care Data Analytics Chief Scientist Name Role Phone Tomy Barcenas MD Primary Care Provider [phone] Romelia Fu MD Primary Care Provider + [phone] Encounter Details Date Type Department Care Team (Late Contact Info) Description 05/02/2023 Lab Requisition [facility] - DermPath Lab [address] [place] [id number] Bossman Jain MD [address] [place] [address] Social History Tobacco Use Types [...] Visit [facility] - ENT [address] [place] [phone] Darwin Jaimes MD [address] [place] [address] [place] [address] documented as of this encounter Procedures Procedure Name Priority Date/Time Associated Diagnosis Comments DERMATOPATHOLOGY Routine 05/01/2023 3:33 AM CDT documented in this encounter Results * DERMATOPATHOLOGY (05/01/2023 3:33 AM CDT) Case Report Dermatopathology Report Case: [id number] Authorizing Provider: Bossman Jain MD Collected: 05/01/2023 03:33 AM Ordering Location: [facility] DermPath Lab Received: 05/02/2023 04:52 PM Pathologist: Mary Mccallum MD Specimens: A) - Skin, mid sternum B) - Skin, post right crown post C) - Skin, post right crown lat D) - Skin, post right crown ant E) - Skin, left great toenail 3:55 PM CDT DERMATOPATHOLOGY LABORATORY Final Diagnosis Specimen A. SKIN, mid sternum: BENIGN VERRUCOUS KERATOSIS, INFLAMED (L82.1) APPROXIMATES MARGIN (see microscopic description) Specimen B. 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 SKIN, post right crown lat: SQUAMOUS CELL CARCINOMA IN SITU ARISING IN AN ACTINIC KERATOSIS (D04.4) (see microscopic description) Specimen D. SKIN, post right crown ant: SQUAMOUS CELL CARCINOMA IN SITU (MITCHELL'S DISEASE) (D04.4) Specimen E. SKIN, left great toenail: ONYCHOMYCOSIS (B35.1) 3:55 PM CDT DERMATOPATHOLOGY LABORATORY Clinical History A-D: R/O SCCis, SCC E: R/O fungus PAS stain 3:55 PM CDT DERMATOPATHOLOGY LABORATORY Gross Description Specimen A: Received is one formalin filled container labeled with the patients name and designated mid sternum. The specimen consists of a shave removal measuring 6x7x4 mm. Jar 0. Specimen B: Received is one formalin filled container labeled with the patient's name and designated post right crown post. The specimen consists of a shave biopsy measuring 9x8x2 mm. Jar 0. Specimen C: Received is one formalin filled container labeled with the patient's name and designated post right crown lat. The specimen consists of a shave biopsy measuring 8x8x2 mm. Jar 0. Specimen D: Received is one formalin filled container labeled with the patient's name and designated post right crown ant. The specimen consists of a shave biopsy measuring 7x11x2 mm. Jar 0. Specimen E: Received is one formalin filled container labeled with the patient's name and designated left great toenail. The specimen consists of a nail clipping measuring 1x4x1, 2x10x2, 2x9x2 and 1x7x1 mm. 3 3:[address] [facility] DERMATOPATHOLOGY LABORATORY Microscopic Description Specimen A. SKIN, mid sternum: Sections show hyperkeratosis, papillomatosis, hypergranulosis, and acanthosis. Inflammatory cells are present within the dermis. These histological findings can be seen in a verruca vulgaris or a seborrheic keratosis. This lesion approximates the margin of the specimen. Additional deeper sections were obtained and reviewed. Specimen B. SKIN, post right crown post: The epidermis shows parakeratosis, full thickness disorderly maturation of keratinocytes, and dyskeratotic cells. The adjacent lower half of the epidermis shows disorderly maturation of keratinocytes with nuclear pleomorphism. Focally there is a suprabasilar cleft with acantholytic cells. Specimen C. SKIN, post right crown lat: The epidermis shows parakeratosis, full thickness disorderly maturation of keratinocytes, and dyskeratotic cells. The adjacent lower half of the epidermis shows disorderly maturation of keratinocytes with nuclear pleomorphism. Specimen D. SKIN, post right crown ant: The epidermis shows parakeratosis, full thickness disorderly maturation of keratinocytes, mitoses at different levels, and dyskeratotic cells. Specimen E. SKIN, left great toenail: Sections show nail plate. Fungal hyphae are present on Periodic acid-Thelma (PAS) stained sections. 3 3:[address] [facility] DERMATOPATHOLOGY LABORATORY Disclaimer An external and internal positive and negative controls are appropriate for the histochemical, immunohistochemical and immunofluorescence stain(s) in this case (if any), except where stated explicitly. The performance characteristics of the stain(s) cited in this report were developed and its performance characteristic determined by the Dermatopathology Laboratory at [facility], directed by Dr. Niko Wade. These tests need not be, and therefore are not, approved by the [place] Food and Drug Administration. The tests are used for clinical purposes. Billing Codes Specimen Charges Stain Charges 14343 07759 06798 47614 46554 1 1 1 1 1 29021 1 3 3:55 PM CDT DERMATOPATHOLOGY LABORATORY Embedded Images 3:55 PM CDT DERMATOPATHOLOGY LABORATORY Pathology/Cytology TISSUE SPECIMEN FROM SKIN / Unknown 05/01/2023 3:33 AM CDT 05/02/2023 4:52 PM CDT Miscellaneous samples (specimen) TISSUE SPECIMEN FROM SKIN / Unknown 05/01/2023 3:33 AM CDT 05/02/2023 4:52 PM CDT Miscellaneous samples (specimen) TISSUE SPECIMEN FROM SKIN / Unknown 05/01/2023 3:33 AM CDT 05/02/2023 4:52 PM CDT Miscellaneous samples (specimen) TISSUE SPECIMEN FROM SKIN / Unknown 05/01/2023 3:33 AM CDT 05/02/2023 4:52 PM CDT Miscellaneous samples (specimen) TISSUE SPECIMEN FROM SKIN / Unknown 05/01/2023 3:33 AM CDT 05/02/2023 4:52 PM CDT Bossman Jain MD LAB - PATHOLOGY/CYTO LOGY ORDERABLES DERMATOPATHOLOGY LABORATORY [facility] - Department of Dermatology [facility] [address] [place] [address], [address] [phone] documented in this encounter Visit Diagnoses Not on filedocumented in this encounter Care Teams Data Analytics Chief Scientist Relationship Specialty Start Date End Date Tomy Barcenas MD [address] [place] [address] PCP - General 10/02/11 05/17/24 Romelia Fu MD [address] [place] [phone] PCP - General Family Medicine 05/18/24 documented as of this encounter
--- OUTSIDE RECORDS SUMMARY | 2024-11-09 13:11 | XMS_ITS | Patient Health Summary ---
Author Organization [facility] Address [address] [place] [address] Care Team Providers Care Senior Mechanical Estimator Name Role Phone Romelia Fu MD Primary Care Provider [phone] Note from [facility][note 3],non-owned Affiliates and Associated Physician Practices is amultiple site organization consisting of ambulatory clinics and hospital sitesin [place], [place], [place] and [place]. This disclosure is being madepursuant to the Care Everywhere program and may not contain all information available regarding this patient. Last updated 18.[facility] Allergies * Contrast-Iodinated Agents For Ct/Other(Urticaria) -Medium Criticality * Erythromycin(GI Discomfort,Nausea and/or Vomiting) -Low Criticality * Iodine(Urticaria) -Medium Criticality * Penicillins(Urticaria,Rash) -Medium Criticality Medications * Be aware that medications may not be up to date on this document. Alwaysverify current medications with the patient. * Cholecalciferol 1.25 MG (75241 UT) Take 1 (one) tablet by mouth once daily * dabigatran (praDAXA) 150 MG capsule(Started 09/09/2023) Take 1 (one) capsule by mouth 2 times daily * ferrous sulfate 325 (65 FE) MG tablet Take 1 (one) tablet by mouth daily with breakfast * Multaq 400 MG tablet Take 1 (one) tablet by mouth 2 times daily with morning and evening meal * finasteride (Proscar) 5 MG tablet(Started 11/15/2023) Take 1 (one) tablet by mouth once daily * Xhance 93 MCG/ACT EXHU(Started 06/03/2023) Inhale 1 puff by mouth as directed * cyanocobalamin, vitamin B-12, 2500 MCG tablet(Started 12/02/2023) Dissolve 1 (one) tablet under the tongue once * metoprolol succinate XL 24hr (Toprol XL) 25 MG tablet(Started 03/29/2023) Take 1 (one) tablet by mouth once daily * olopatadine (Patanase) 0.6 % nasal solution(Started 02/26/2024) [place] 1 (one) spray into each nostril 2 times daily * pantoprazole EC (Protonix) 40 MG tablet Take 1 (one) tablet by mouth once daily * pravastatin (Pravachol) 40 MG tablet(Started 03/10/2024) Take 1 (one) tablet by mouth once daily * Entresto 24-26 MG tablet(Started 06/20/2023) Take 0.5 (one-half) tablet by mouth 2 times daily * tadalafil (Cialis) 20 MG tablet Take 1 (one) tablet by mouth once daily as needed For erectile dysfunction. * Stiolto Respimat 2.5-2.5 MCG/ACT Inhale 1 puff by mouth as directed * methylPREDNISolone (Medrol Dosepak) 4 MG tablet Take 1 (one) tablet by mouth as directed Take as directed by mouth per package instructions. * diphenhydrAMINE (Benadryl) 50 MG capsule(Started 07/08/2024) Take 1 (one) capsule by mouth every 6 hours as needed Take [address] scan for allergy. Instructions: * fexofenadine (Debbie) 180 MG tablet Take 1 (one) tablet by mouth every morning * Psyllium (Konsyl Daily Psyllium Fiber) 83 % PACK Take 6 g by mouth 3 times daily Immunizations * INFLUENZA VACCINE(Given 06/02/2024, 06/08/2021) Social History Tobacco Use Types Packs/Day Years [...] Comments Blood Pressure 134/88 09/01/2024 7:54 AM ENROLLMENT SPECIALIST Pulse 64 09/01/2024 7:54 AM ENROLLMENT SPECIALIST Temperature - - Respiratory Rate - - Oxygen Saturation - - Inhaled Oxygen Concentration - - Weight 72.1 kg (159 lb) 09/01/2024 7:54 AM ENROLLMENT SPECIALIST Height 175.3 cm (5' 9 ) 09/01/2024 7:54 AM ENROLLMENT SPECIALIST Body Mass Index 23.48 09/01/2024 7:54 AM ENROLLMENT SPECIALIST Procedures * VT LARYNGOSCOPY,FLEX/RIGID+STROBOSCOPY(Performed 07/21/2024) Performed for Chronic throat clearing, Muscle tension dysphonia, Chronic cough, Hoarseness * VT LARYNGOSCOPY,FLEX FIBER,DIAGNOSTIC(Performed 05/18/2024) Performed for Chronic cough, Hoarseness * DERMATOPATHOLOGY(Performed 05/12/2024) * DERMATOPATHOLOGY(Performed 04/22/2024) * DERMATOPATHOLOGY(Performed 03/10/2024) * DERMATOPATHOLOGY(Performed 02/27/2024) * DERMATOPATHOLOGY(Performed 12/03/2023) * DERMATOPATHOLOGY(Performed 05/01/2023) * DERMATOPATHOLOGY(Performed 10/20/2019) * DERMATOPATHOLOGY(Performed 09/25/2016) * DERMATOPATHOLOGY(Performed 05/02/2016) * DERMATOPATHOLOGY(Performed 11/17/2013) * DERMATOPATHOLOGY(Performed 11/28/2011) * DERMATOPATHOLOGY(Performed 10/02/2011) Results * VT LARYNGOSCOPY,FLEX/RIGID+STROBOSCOPY (07/21/2024 3:22 PM ENROLLMENT SPECIALIST) Narrative Darwin Jaimes MD - 07/21/2024 3:22 PM ENROLLMENT SPECIALIST Darwin Jaimes MD 07/21/2024 3:24 PM Procedure Note Endoscopy Type: Laryngoscopy with stroboscopy 80421 Endoscope: Flexible 4mm Scope Anesthesia: Lidocaine 2% and Neosynephrine 1/2% (nasal) Procedure Details: The patient was sitting upright in a chair with the head in a slightly anterior sniffing position. The topical anesthesia was administered and then adequate time was allowed for an anesthetic effect. The endoscope was passed thru the nasal cavity with the tongue retracted anteriorly. The tip of the endoscope was positioned in the oropharynx which allowed a complete view of the base of tongue, vallecula, pyriform recesses, epiglottis, bilateral true and false vocal folds, the interarytenoid and post cricoid region, and the immediate subglottis. Findings: Vocal cords are mobile. The nasal cavity exam shows mucopurulent drainage in the posterior per the nasal cavity from the middle meatus bilaterally draining into the nasopharynx with drainage running down the right side of the pharynx down to the hypopharynx. Both vocal cords are mobile the subglottis is clear. The posterior cricoid space is clear. Condition: Stable. Patient tolerated procedure well. Complications: None I was present for the entirety of the procedure. Darwin Jaimes MD PROCEDURE/MINOR SURG ICAL ORDERABLES * VT LARYNGOSCOPY,FLEX FIBER,DIAGNOSTIC (05/18/2024 2:29 PM CDT) Narrative Darwin Jaimes MD - 05/18/2024 2:29 PM CDT Darwin Jaimes MD 05/18/2024 2:51 PM Procedure Note Endoscopy Type: Laryngoscopy without stroboscopy 14121 Endoscope: Flexible 4mm Scope Anesthesia: Lidocaine 2% and Neosynephrine 1/2% (nasal) Procedure Details: The patient was sitting upright in a chair with the head in a slightly anterior sniffing position. The topical anesthesia was administered and then adequate time was allowed for an anesthetic effect. The endoscope was passed thru the nasal cavity with the tongue retracted anteriorly. The tip of the endoscope was positioned in the oropharynx which allowed a complete view of the base of tongue, vallecula, pyriform recesses, epiglottis, bilateral true and false vocal folds, the interarytenoid and post cricoid region, and the immediate subglottis. Findings: Nasal cavity clear without secretions, nasopharynx open, soft palate elevates symmetrically, base of tongue is normal, piriform sinuses clear without secretions. Vocal cords are mobile. The left vocal cord may move less briskly than the right he does move through a near full range of motion. The full cords do not abduct to a wide opening but to an adequate opening. There is mild redundancy of the mucosa of the left false vocal cord the left also cords greater than right. Hearing phonation for the majority of time the false vocal cords vibrate thus given the low pitch sounds of voice. We were able to elevate his pitch and elicit true vocal cord phonation. The hooding of the left vocal cord is most likely just due to redundancy of the mucosa of the left false vocal cord. A definitive laryngocele is not seen on exam. Condition: Stable. Patient tolerated procedure well. Complications: None I was present for the entirety of the procedure. Darwin Jaimes MD PROCEDURE/MINOR SURG ICAL ORDERABLES * DERMATOPATHOLOGY (05/12/2024 3:35 PM CDT) Only the most recent of12 resultswithin the time period is included. Case Report Dermatopathology Report Case: [id number] Authorizing Provider: Char Yepez MD Collected: 05/12/2024 03:35 PM Ordering Location: [facility] - Received: 05/14/2024 06:48 [...] forearm.The specimen consists of an ellipse measuring 64k60c3 mm and is oriented with the suture/notch at the 12 o'clock position labeled on the requisition as [id number]. The 12 to 6 o'clock margin is [...] to the inferior margin of the specimen. 4 1:32 PM CDT DERMATOPATHOLOGY LABORATORY Disclaimer An external and internal positive and negative controls are appropriate for the histochemical, immunohistochemical and immunofluorescence stain(s) in this case (if any), except where stated explicitly. The performance characteristics of the stain(s) cited in this report were developed and its performance characteristic determined by the Dermatopathology Laboratory at [facility], directed by Dr. Niko Wade. These tests need not be, and therefore are not, approved by the [place] Food and Drug Administration. The tests are used for clinical purposes. Billing Codes Specimen Charges Stain Charges 81227 1 4 1:32 PM CDT DERMATOPATHOLOGY LABORATORY Embedded Images 4 1:32 PM CDT DERMATOPATHOLOGY LABORATORY Pathology/Cytolo gy TISSUE SPECIMEN FROM SKIN / Unknown 05/12/2024 3:35 PM CDT 05/14/2024 6:48 AM CDT Char Yepez MD LAB - PATHOLOGY/CYTO LOGY ORDERABLES DERMATOPATHOLOGY LABORATORY [facility] - Department of Dermatology [facility] [address] [place] [address], [address] [phone] Care Teams Senior Mechanical Estimator Relationship Specialty Start Date End Date Romelia Fu MD [address] [place] [phone] PCP - General Family Medicine 05/18/24
--- OUTSIDE RECORDS SUMMARY | 2024-11-09 13:12 | XMS_ITS | Referral Summary ---
Author Organization [facility] Address [address] [place] [phone] Care Team Providers Care Hydroelectric Machinery Mechanic Name Role Phone Emilia Ortiz MD Unavailable [phone] Scott Carballo MD Unavailable Romelia Fu MD Primary Care Provider + Encounters Date Type Department Care Team Description 10/13/2024 1:30 PM BRICK PITCHER Office Visit [facility] Cardiology [address] [place] [address] Medical [address] [place] [phone] Deidra Osman NP Atrial fibrillation, unspecified type (HCC) (Primary Dx) 08/18/2024 1:30 PM BRICK PITCHER Office Visit [facility] Cardiology [address] [place] [address] Medical Office [address] [place] [phone] Deidra Osman NP Paroxysmal atrial fibrillation (HCC) (Primary Dx) from Last 3 Months Allergies Active Allergy Reactions Criticality Noted Date Comments Iodinated Contrast Media Hives Medium 06/27/2018 Hives developed 4 days after cardiac cath, no other aggravating agent could be identified. Erythromycin Nausea only,Stomach upset Low 12/02/2018 Diarrhea/cramping Iodine Hives Medium 03/03/2019 IVP dye Penicillins Rash,Hives Medium 03/24/2018 Medications cholecalciferol (VITAMIN D-3) 25225 unit tabletIndications :Vitamin D Deficiency Take 1 tablet (50,000 Units total) by mouth once a week Sundays Active ferrous sulfate 325 mg (65 mg of elemental iron) tabletIndications :Iron Deficiency Anemia Take 1 tablet (325 mg total) by mouth daily with breakfast Active olopatadine 0.6 % spray,non-aerosol Indications:Aller gic Rhinitis Administer 2 sprays into affected nostril(s) 2 (two) times a day 022 Active acetaminophen ER (TYLENOL) 650 mg 8 hr tabletIndications :Pain Take 1 tablet (650 mg total) by mouth every 8 (eight) hours as needed for pain Active pantoprazole DR (PROTONIX) 40 mg EC tabletIndications :Treatment of Non-Bleeding Gastric Disorder Take 1 tablet (40 mg total) by mouth daily before breakfast 023 Active Xhance 93 mcg/actuation aerosol breath activatedIndicati ons:chronic rhinosinusitis with nasal polyposis Administer 2 sprays into affected nostril(s) 2 (two) times a day 023 Active finasteride (PROSCAR) 5 mg tablet Take 1 tablet (5 mg total) by mouth daily 90 tablet 3 024 Active Stiolto Respimat 2.5-2.5 mcg/actuation inhalerIndication s:Bronchospasm Prevention with COPD Inhale 1 puff every morning Active cyanocobalamin, vitamin B-12, 1,000 mcg lozengeIndication s:Prevention of Vitamin B12 Deficiency Take 1,000 mcg by mouth every morning 024 Active pravastatin (PRAVACHOL) 40 mg tablet TAKE 1 TABLET DAILY 90 tablet 2 024 Active metoprolol XL (TOPROL-XL) 25 mg extended release tabletIndications :Paroxysmal atrial fibrillation (HCC) TAKE 1 TABLET BY MOUTH DAILY 90 tablet 1 024 Active sacubitriL-valsar esparza (Entresto) 24-26 mg tabletIndications :Chronic systolic heart failure (HCC) Take 0.5 tablets by mouth 2 (two) times a day If systolic BP is < 90, skip next dose of Entresto 024 Active psyllium husk (KONSYL) 6 gram packetIndications :constipation Take 1 packet (6 g total) by mouth 3 (three) times a day Active tadalafiL (CIALIS) 20 mg tablet TAKE 1 TABLET BY MOUTH DAILY NEEDED FOR ERECTILE DYSFUNCTION. 10 tablet 11 025 Active dabigatran (PRADAXA) 150 mg capsule TAKE 1 CAPSULE TWICE DAILY 180 capsule 025 Active dabigatran (PRADAXA) 150 mg capsule Take 1 capsule (150 mg total) by mouth 2 (two) times a day 180 capsule 1 024 2024 Discontinued dronedarone (Multaq) 400 mg tablet Take 1 tablet (400 mg total) by mouth 2 (two) times a day with meals 180 tablet 3 024 2024 Discontinued(T herapy completed) fexofenadine (CLAUDIA) 180 mg tabletIndications :Allergic Rhinitis,Seasonal Allergic Rhinitis Take 1 tablet (180 mg total) by mouth every morning 2024 Discontinued(T herapy completed) sulfamethoxazole- trimethoprim (BACTRIM DS) 800-160 mg per tablet Take 1 tablet by mouth 2 (two) times a day 024 2024 Discontinued(T herapy completed) Active Problems Problem Noted Date Diagnosed Date Atrial fibrillation 07/24/2024 BPH (benign prostatic hyperplasia) 07/24/2024 Assessment & Plan (07/24/2024 2:44 PM BRICK PITCHER): - Continue home finasteride Bilateral renal masses 06/08/2021 Assessment & Plan (06/09/2021 9:33 AM CDT): CT 05/31 with R 5 & 2 cm solid masses, L 2 cm solid mass - likely malignancy - follows with [facility] urology - s/p R renal biopsy 06/08 - CBC stable. 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 NICM (nonischemic cardiomyopathy) 08/04/2018 Assessment & Plan (07/24/2024 2:38 PM BRICK PITCHER): - Continue home entresto, metoprolol Chronic systolic heart failure (CMS/HCC) 018 Assessment & Plan (06/08/2021 2:01 PM CDT): Cont home metoprolol and entresto JOHANNE (obstructive sleep apnea) 08/04/2018 Assessment & Plan (07/24/2024 2:38 PM BRICK PITCHER): - Home BiPAP ordered Assessment & Plan (06/08/2021 2:01 PM CDT): Cont home bipap, pt brought his own device Paroxysmal atrial fibrillation 03/24/2018 Assessment & Plan (07/25/2024 10:35 AM BRICK PITCHER): S/p uncomplicated atrial fibrillation ablation on 07/24 - admitted for overnight observation, no complications noted - c/o dizziness with standing 07/25 AM, orthostatics negative. Per RN, did not have water overnight. Encouraged PO hydration. - Continue home dabigatran - Continue home dronedarone, metoprolol - EP f/u 08/18 Assessment & Plan (06/08/2021 1:58 PM CDT): Dx 2017 - on pradaxa, held 4 days before procedure - cont to hold 48 hrs after procedure - cont home metop and dronedarone Essential hypertension 03/24/2018 Assessment & Plan (06/08/2021 1:57 PM CDT): Cont home regimen of entresto and metop GERD without esophagitis 03/24/2018 Assessment & Plan (06/08/2021 2:01 PM CDT): Cont home ppi Hyperlipidemia LDL goal <130 03/24/2018 Assessment & Plan (06/08/2021 2:01 PM CDT): Cont home pravastatin Chronic anticoagulation 03/24/2018 Immunizations Immunization Administration Dates Next Due Influenza, Quadrivalent, Hig h Dose, Preservative Free, Intrr 06/08/2021 Influenza, Unspecified 06/02/2024 Social History Tobacco Use Types Packs/Day Years Used Date Smoking Tobacco: Never Passive Smoke Exposure: Past Smokeless Tobacco: Never Tobacco Cessation:Counseling Given: Not Answered Alcohol Use Standard Drinks/Week Comments No 0 (1 standard drink = 0.6 oz pur e alcohol) AUDIT-C Answer Date Recorded Q1: How often do you have a drink containing alc ohol? Monthly or less 07/24/2024 Q2: How many drinks containi ng alcohol do you have on a typical day when you are drinking? 1 or 2 07/24/2024 Q3: How often do you have si x or more drinks on one occasion? Never 07/24/2024 Personal Safety Answer Date Recorded Have you ever been in or are you currently in a harmful physical or emotional relationship or is someone making you feel afraid or unsafe? Denies 07/24/2024 Sex and Gender Information Value Date Recorded Sex Assigned at Not on file Legal Sex Male 7:16 PM BRICK PITCHER Gender Identity Male 07/06/2020 12:33 PM BRICK PITCHER Sexual Orientation Straight 07/06/2020 12 :33 PM BRICK PITCHER Last Filed Vital Signs Vital Sign Reading Time Taken Comments Blood Pressure 109/82 10/13/2024 1:31 PM BRICK PITCHER Pulse 78 10/13/2024 1:31 PM BRICK PITCHER Temperature 36.8 C (98.2 F) 07/25/2024 7:40 AM BRICK PITCHER Respiratory Rate 18 07/25/2024 7:40 AM BRICK PITCHER Oxygen Saturation 97% 10/13/2024 1:31 PM BRICK PITCHER Inhaled Oxygen Concentration - - Weight 68.5 kg (151 lb) 10/13/2024 1:31 PM BRICK PITCHER Height 175.3 cm (5' 9 ) 10/13/2024 1:31 PM BRICK PITCHER Body Mass Index 22.3 10/13/2024 1:31 PM BRICK PITCHER Plan of Treatment Not on file Medical Devices Implanted Type Area Political Scientist Device Identifier Shelf Expiration Date Model / Serial / Lot Green Chips Device Vascular Closure Femoral Artery Bioabsorbable Dual Method Vascade 6-7fr Collagen [id number] - [id number] - [id number] Implanted:Qty: 1 on 07/24/2024 by Rayo Huerta MD at [facility] Vascular Closure Device Left: Groin [employer] 12/10/2025 [id number] / [id number] / [id number] [employer] Vascade Mvp 6-12fr Venous Closure [id number] - [id number] - [id number] Implanted:Qty: 1 on 07/24/2024 by Rayo Huerta MD at [facility] Vascular Closure Device Left: Groin [employer] 03/30/2026 [id number] [id number] / [id number] / [id number] [id number] [employer] Device Vascular Closure Vascade Mvp Xl 10-12fr Venous Strl [id number] - [id number] - [id number] Implanted:Qty: 1 on 07/24/2024 by Rayo Huerta MD at [facility] Vascular Closure Device Right: Groin [employer] 05/11/2026 [id number] L / [id number] / [id number] Procedures Procedure Name Priority Date/Time Associated Diagnosis Comments ECG 12-LEAD Routine 10/13/2024 1:25 PM BRICK PITCHER Atrial fibrillation, unspecified type (HCC) ECG 12-LEAD Routine 08/18/2024 1:45 PM BRICK PITCHER Paroxysmal atrial fibrillation (HCC) from Last 3 Months Results * ECG 12 lead (10/13/2024 1:25 PM BRICK PITCHER) Deidra Osman NP ECG ORDERABLES Edited R esult - Final * ECG 12 lead (08/18/2024 1:45 PM BRICK PITCHER) Deidra Osman NP ECG ORDERABLES Edited R esult - Final from Last 3 Months Insurance [employer] MEDICARE FORMERLY [facility] MEDICARE FORMERLY [facility] MEDICARE Advance Directives For more information, please contact: [phone] * Full Code (Latest Code Status on File) Date Activated Date Inactivated Comments 07/24/2024 2:02 PM 07/25/2024 3:38 PM * Full Code Date Activated Date Inactivated Comments 06/08/2021 9:09 AM 06/13/2021 4:48 AM Care Teams Hydroelectric Machinery Mechanic Relationship Specialty Start Date End Date Romelia Fu MD [address] [place] [phone] PCP - General Family Medicine 01/04/21 Emilia Ortiz MD Consulting Physician Critical Care Med 10/15/18 Scott Carballo MD [address] [place] [phone] Referring Physician Neurology 07/12/20
--- OUTSIDE RECORDS SUMMARY | 2024-11-09 13:12 | XMS_ITS | Encounter Summary ---
Author Organization [facility] Address [facility] [facility] [place] [address] Care Team Providers Care Senior Controls Technician Name Role Phone Romelia Fu MD Primary Care Provider [phone] Reason for Visit * Reason Onset Date Comments Nurse Only 07/23/2024 MEDICATION REFILL 07/23/2024 Encounter Details Date Type Department Care Team (Late st Contact Info) Description 07/23/2024 Telephone [facility] - ENT [address] [place] [phone] Darwin Jaimes MD [address] [place] [address] [place] [address] Nurse Only; MEDICATION REFILL Social History Tobacco Use Types Packs/Day Years Used Date Smoking Tobacco: Never Smokeless Tobacco: Never Alcohol Use Standard Drinks/Week Comments Not Currently 0 (1 standard drink = 0.6 oz pur e alcohol) rarely Sex and Gender Information Value Date Recorded Sex Assigned at Not on file Gender Identity Not on file Sexual Orientation Not on file documented as of this encounter Miscellaneous Notes * Telephone Encounter - Nu Raymundo - 07/23/2024 3:13 PM CST Pt is calling regarding medication, pharmacy need to speak with the office, before refilling medication Levfloxacin, pt is having surgery tomorrow at 6 am ING SYSTEMS AND EQUIPMENT REPAIRER documented in this encounter Plan of Treatment Upcoming Encounters Date Type Department Care Team (Late st Contact Info) Description 12/08/2024 11:15 AM CDT Office Visit [facility] - ENT [address] [place] [address], [place] [phone] Darwin Jaimes MD [address] [place] [address] [place] [address] documented as of this encounter Visit Diagnoses Not on filedocumented in this encounter Care Teams Senior Controls Technician Relationship Specialty Start Date End Date Romelia Fu MD [address] [place] [phone] PCP - General Family Medicine 05/18/24 documented as of this encounter
--- OUTSIDE RECORDS SUMMARY | 2024-11-09 13:12 | XMS_ITS | Encounter Summary ---
Author Organization [facility] Address [address] [facility] [place] [address] Care Team Providers Care Processing Lead Name Role Phone Tomy Barcenas MD Primary Care Provider [phone] Romelia Fu MD Primary Care Provider + [phone] Encounter Details Date Type Department Care Team (Late Contact Info) Description 04/24/2024 Lab Requisition [facility] - DermPath Lab [address] [place] [phone] Bossman Jain MD [address] [place] [address] Social History Tobacco Use Types [...] Visit [facility] - ENT [address] [place] [phone] Darwin Jaimes MD [address] [place] [address] [place] [address] documented as of this encounter Procedures Procedure Name Priority Date/Time Associated Diagnosis Comments DERMATOPATHOLOGY Routine 04/22/2024 12:0 0 AM CDT documented in this encounter Results * DERMATOPATHOLOGY (04/22/2024 12:00 AM CDT) Case Report Dermatopathology Report Case: [id number] Authorizing Provider: Bossman Jain MD Collected: 04/22/2024 12:00 AM Ordering Location: [facility] - Received: 04/24/2024 02:06 PM DermPath Lab Pathologist: Mary Mccallum MD Specimens: A) - Skin, nasal bridge left of midline B) - Skin, right lateral proximal extensor forearm C) - Skin, left elbow 1:58 PM CDT DERMATOPATHOLOGY LABORATORY Final Diagnosis Specimen A. SKIN, nasal bridge left of midline: BASAL CELL CARCINOMA, NODULAR TYPE (C44.311) Specimen B. 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 SKIN, left elbow: VERRUCA VULGARIS (B07.8) 1:58 PM CDT DERMATOPATHOLOGY LABORATORY Clinical History A-C: R/O BCC 1:58 PM CDT DERMATOPATHOLOGY LABORATORY Gross Description Specimen A: Received is one formalin filled container labeled with the patient's name and designated nasal bridge left of midline. The specimen consists of a shave biopsy measuring 6x5x1 mm. Jar 0. Specimen B: Received is one formalin filled container labeled with the patient's name and designated right lateral proximal extensor forearm. The specimen consists of a shave biopsy measuring 7x5x3 mm. Jar 0. Specimen C: Received is one formalin filled container labeled with the patient's name and designated left elbow. The specimen consists of a shave biopsy measuring 10x9x2 mm. Jar 0. 1:58 PM CDT DERMATOPATHOLOGY LABORATORY Microscopic Description Specimen A. SKIN, nasal bridge left of midline: Within the dermis there are aggregates of basaloid cells with a high nuclear to cytoplasmic ratio and peripheral palisading. Specimen B. SKIN, right lateral proximal extensor forearm: The epidermis shows parakeratosis, full thickness disorderly maturation of keratinocytes, mitoses at different levels, and dyskeratotic cells. Specimen C. SKIN, left elbow: There is digitated epidermal hyperplasia, hypergranulosis, vacuolated granular layer cells, and compact hyperorthokeratosis . 4 1:58 PM CDT DERMATOPATHOLOGY LABORATORY Disclaimer An external and internal positive and negative controls are appropriate for the histochemical, immunohistochemical and immunofluorescence stain(s) in this case (if any), except where stated explicitly. The performance characteristics of the stain(s) cited in this report were developed and its performance characteristic determined by the Dermatopathology Laboratory at [facility], directed by Dr. Niko Wade. These tests need not be, and therefore are not, approved by the [place] Food and Drug Administration. The tests are used for clinical purposes. Billing Codes Specimen Charges Stain Charges 00785 33738 93974 1 1 1 4 1:58 PM CDT DERMATOPATHOLOGY LABORATORY Embedded Images 1:58 PM CDT DERMATOPATHOLOGY LABORATORY Pathology/Cytology TISSUE SPECIMEN FROM SKIN / Unknown 04/22/2024 04/24/2024 2:06 PM CDT Miscellaneous samples (specimen) TISSUE SPECIMEN FROM SKIN / Unknown 04/22/2024 04/24/2024 2:06 PM CDT Miscellaneous samples (specimen) TISSUE SPECIMEN FROM SKIN / Unknown 04/22/2024 04/24/2024 2:06 PM CDT Bossman Jain MD LAB - PATHOLOGY/CYTO LOGY ORDERABLES DERMATOPATHOLOGY LABORATORY [facility] - Department of Dermatology [facility] Specialized Medicine [address] [place] [address], [address] [phone] documented in this encounter Visit Diagnoses Not on filedocumented in this encounter Care Teams Processing Lead Relationship Specialty Start Date End Date Tomy Barcenas MD [address] [place] [address] PCP - General 10/02/11 05/17/24 Romelia Fu MD [address] [place] [address] PCP - General Family Medicine 05/18/24 documented as of this encounter
--- OUTSIDE RECORDS SUMMARY | 2024-11-09 13:12 | XMS_ITS | Clinical Summary ---
Author Organization [facility] Address [address] [place] [id number] Care Team Providers Care Aligner Name Role Phone Emilia Ortiz MD Unavailable Scott Carballo MD Unavailable [phone] Romelia Fu MD Primary Care Provider + Allergies Active Allergy Reactions Criticality Noted Date Comments Iodinated Contrast Media Hives Medium 06/27/2018 Hives developed 4 days after cardiac cath, no other aggravating agent could be identified. Erythromycin Nausea only,Stomach upset Low 12/02/2018 Diarrhea/cramping Iodine Hives Medium 03/03/2019 IVP dye Penicillins Rash,Hives Medium 03/24/2018 Medications cholecalciferol (VITAMIN D-3) 90452 unit tabletIndications :Vitamin D Deficiency Take 1 [...] 07/24/2024 Assessment & Plan (07/24/2024 2:44 PM COVERSTITCH ELASTIC ATTACHER): - Continue home finasteride Bilateral renal masses 06/08/2021 Assessment & Plan (06/09/2021 9:33 AM CDT): CT 05/31 with R 5 & 2 cm solid masses, L 2 cm solid mass - likely malignancy - follows with [facility] urology - s/p R renal biopsy 06/08 - CBC stable. 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 NICM (nonischemic cardiomyopathy) 08/04/2018 Assessment & Plan (07/24/2024 2:38 PM COVERSTITCH ELASTIC ATTACHER): - Continue home entresto, metoprolol Chronic systolic heart failure (CMS/HCC) 018 Assessment & Plan (06/08/2021 2:01 PM CDT): Cont home metoprolol and entresto JOHANNE (obstructive sleep apnea) 08/04/2018 Assessment & Plan (07/24/2024 2:38 PM COVERSTITCH ELASTIC ATTACHER): - Home BiPAP ordered Assessment & Plan (06/08/2021 2:01 PM CDT): Cont home bipap, pt brought his own device Paroxysmal atrial fibrillation 03/24/2018 Assessment & Plan (07/25/2024 10:35 AM COVERSTITCH ELASTIC ATTACHER): S/p uncomplicated atrial fibrillation ablation on 07/24 [...] CDT): Cont home pravastatin Chronic anticoagulation 03/24/2018 Encounters Date Type Department Care Team Description 10/13/2024 1:30 PM COVERSTITCH ELASTIC ATTACHER Office Visit [facility] Cardiology [address] [place] [address] Office [address] [place] [address] Deidra Osman NP Atrial fibrillation, unspecified type (HCC) (Primary Dx) 08/18/2024 1:30 PM COVERSTITCH ELASTIC ATTACHER Office Visit [facility] Cardiology [address] [place] [address] [address] [place] [address] Deidra Osman NP Paroxysmal atrial fibrillation (HCC) (Primary Dx) from Last 3 Months Immunizations Immunization Administration Dates Next Due Influenza, Quadrivalent, Hig h Dose, Preservative Free, Intrr 06/08/2021 Influenza, Unspecified 06/02/2024 Surgical History Surgery Date Site/Laterality Comments HERNIA REPAIR CATARACT EXTRACTION US GUIDED BIOPSY RENAL 06/08/2021 N/A COLONOSCOPY Medical History Medical History Date Comments Enlarged prostate Atrial fibrillation (HCC) GERD (gastroesophageal reflux disease) Heart disease Hypertension CHF (congestive heart failure) (HCC) Sleep apnea Arthritis 2020 Cataract cataract surgery 2019 Chronic kidney disease NEW in 2020: 3 Tu mors-1 benign, 2 to be tested [place] Family History Medical History Relation Name Comments Renal Cancer Brother Arthritis Father Darwin Jaimes Hearing loss Father Darwin Jaimes Urolithiasis Father Darwin Jaimes Heart disease Mother Rosetta Jaimes Heart failure Mother Rosetta Jaimes Renal Vein thrombosis Sister Anesthesia problems Neg Hx Relation Name Status Comments Brother Father Darwin Jaimes Mother Rosetta Jaimes Sister Social History Tobacco Use Types Packs/Day [...] on file Legal Sex Male 7:16 PM COVERSTITCH ELASTIC ATTACHER Gender Identity Male 07/06/2020 12:33 PM COVERSTITCH ELASTIC ATTACHER Sexual Orientation Straight 07/06/2020 12 :33 PM COVERSTITCH ELASTIC ATTACHER Obstetrics History Last Filed Vital Signs Vital Sign Reading Time Taken Comments Blood Pressure 109/82 10/13/2024 1:31 PM COVERSTITCH ELASTIC ATTACHER Pulse 78 10/13/2024 1:31 PM COVERSTITCH ELASTIC ATTACHER Temperature 36.8 C (98.2 F) 07/25/2024 7:40 AM COVERSTITCH ELASTIC ATTACHER Respiratory Rate 18 07/25/2024 7:40 AM COVERSTITCH ELASTIC ATTACHER Oxygen Saturation 97% 10/13/2024 1:31 PM COVERSTITCH ELASTIC ATTACHER Inhaled Oxygen Concentration - - Weight 68.5 kg (151 lb) 10/13/2024 1:31 PM COVERSTITCH ELASTIC ATTACHER Height 175.3 cm (5' 9 ) 10/13/2024 1:31 PM COVERSTITCH ELASTIC ATTACHER Body Mass Index 22.3 10/13/2024 1:31 PM COVERSTITCH ELASTIC ATTACHER Plan of Treatment Health Maintenance Due Date Last Done Comments Depression Screening 1945 Hepatitis B Screening 1961 Zoster Vaccine (1 of 2) 1993 Well Visit 65+ 2008 DTaP/Tdap/Td Vaccine (1 - Tdap) 04/03/2009 9, 08/12/2002 Fall Risk Assessment 07/25/2025 07/25/2024 Pneumococcal vaccine 65+ Completed 05/17/2016, 05/03 Influenza Vaccine Completed 06/02/2024, , 06/10/2018 Medical Devices Implanted Type Area Lunchroom Food Service Supervisor Device Identifier Shelf Expiration Date Model / Serial / Lot [employer] Device Vascular Closure Femoral Artery Bioabsorbable Dual Method Vascade 6-7fr Collagen [id number] - [id number] - [id number] Implanted:Qty: 1 on 07/24/2024 by Rayo Huerta MD at [facility] Vascular Closure Device Left: Groin [employer] 12/10/2025 700-580I- 05U / [id number] / [id number] [id number] [employer] Vascade Mvp 6-12fr Venous Closure [id number] - [id number] - [id number] Implanted:Qty: 1 on 07/24/2024 by Rayo Huerta MD at [facility] Vascular Closure Device Left: Groin [employer] 03/30/2026 800-612C- 10U / [id number] / [id number] [id number] [employer] Device Vascular Closure Vascade Mvp Xl 10-12fr Venous Strl [id number] - [id number] - [id number] Implanted:Qty: 1 on 07/24/2024 by Rayo Huerta MD at [facility] Vascular Closure Device Right: Groin [employer] 05/11/2026 800-1012X L / [id number] / [id number] Procedures Procedure Name Priority Date/Time Associated Diagnosis Comments ECG 12-LEAD Routine 10/13/2024 1:25 PM COVERSTITCH ELASTIC ATTACHER Atrial fibrillation, unspecified type (HCC) ECG 12-LEAD Routine 08/18/2024 1:45 PM COVERSTITCH ELASTIC ATTACHER Paroxysmal atrial fibrillation (HCC) from Last 3 Months Results * ECG 12 lead (10/13/2024 1:25 PM COVERSTITCH ELASTIC ATTACHER) Deidra Osman NP ECG ORDERABLES Edited R esult - Final * ECG 12 lead (08/18/2024 1:45 PM COVERSTITCH ELASTIC ATTACHER) Deidra Osman NP ECG ORDERABLES Edited R esult - Final from Last 3 Months Insurance [facility] Address: [facility] [id number] [place] [phone] [facility] Advance Directives For more information, please contact: [phone] * Full Code (Latest Code Status on File) Date Activated Date Inactivated Comments 07/24/2024 2:02 PM 07/25/2024 3:38 PM * Full Code Date Activated Date Inactivated Comments 06/08/2021 9:09 AM 06/13/2021 4:48 AM Care Teams Aligner Relationship Specialty Start Date End Date Romelia Fu MD [address] [place] [id number] PCP - General Family Medicine 01/04/21 Emilia Ortiz MD Consulting Physician Critical Care Med 10/15/18 Scott Carballo MD [address] [place] [address] Referring Physician Neurology 07/12/20
[2024-11-09 14:09] LABS: Basophils Absolute Auto 0.1 K/mm3 (0.0-0.1); Basophils Percent Auto 1.4 % (0.2-1.2); Eosinophils Absolute Auto 0.2 K/mm3 (0-0.3); Eosinophils Percent Auto 3.7 % (0-4.4); Hematocrit 42.2 % (42.0-52.0); Hemoglobin 13.6 g/dL (14.0-18.0); Immature Granulocyte Absolute 0.02 K/mm3 (0.00-0.031); Immature Granulocyte Percent A 0.5 % (0-0.5); Lymphocytes Percent Auto 30.3 % (18.3-44.2); Mean Corpuscular HGB Conc 32.2 g/dl (32-36); Mean Corpuscular Hemoglobin 32.5 pg (26-34); Mean Corpuscular Volume 100.7 fl (80-100); Mean Platelet Volume 9.7 fl (7.4-10.4); Monocytes Absolute Auto 0.4 K/mm3 (0.1-0.6); Monocytes Percent Auto 9.6 % (2.6-8.5); Neutrophils Absolute Auto 2.3 K/mm3 (1.3-6.7); Neutrophils Percent Auto 54.5 % (45.5-73.1); Platelet Count Result 209 k/mm3 (150-375); Red Blood Count 4.19 M/mm3 (4.6-6.20); Red Cell Distribution Width 12.9 % (11.5-14.5); White Blood Count 4.3 K/mm3 (4.5-10.0)
[2024-11-09 14:36] LABS: Alanine Aminotransferase 19 U/L (6-50); Albumin Level 4.3 g/dL (3.5-5.1); Alkaline Phosphatase 47 U/L (38-126); Anion Gap 8 mmol/L (4-12); Aspartate Amino Transferase 41 U/L (17-59); Bilirubin,Total 0.9 mg/dL (0.2-1.3); Blood Urea Nitrogen 17 mg/dL (9-20); Calcium 9.1 mg/dL (8.4-10.2); Carbon Dioxide 28 mmol/L (22-30); Chloride 104 mmol/L (98-107); Cholesterol 185 mg/dL (0-200); Estimated Glomerular Filt Rate > 60; Glucose 84 mg/dL (65-110); HDL Direct 39 mg/dL; Sodium 140 mmol/L (137-145); Triglycerides 193 mg/dL (<150)
[2024-11-09 14:47] LABS: LDL Cholesterol Direct 105 mg/dL
[2024-11-09 15:01] LABS: Prostate Specific Antigen 1.3 ng/mL (< OR = 4.0)
== END 2024-11-09 11:00 | disposition home or self-care (01) ==
LOC: ANHGOSHLAB 11:01
PROVIDERS: PCP Family Medicine; Visit Provider Family Medicine
DX: I50.22 Chronic systolic (congestive) heart failure (principal); Z12.5 Encounter for screening for malignant neoplasm of prostate
CPT/HCPCS: 36415; 80053; 80061; 84153; 85025; G0103

== ENCOUNTER 2024-11-27 00:13 | Day surgery (SDC) | payer MEDICARE, SELFPAY ==
[2024-11-16 14:05] VITALS: BMI 22.3
--- NOTE | 2024-11-18 12:29 | PC.NURSE ---
Spoke with patient regarding medication Pradaxa. Patient verbalizes understanding that the last dose is to be taken on 11/24/2024 and the Endoscopist will instruct them when to restart after the procedure.
--- OUTSIDE RECORDS SUMMARY | 2024-11-27 00:16 | XMS_ITS | Clinical Summary ---
Author Organization [facility] Address [address] [place] [id number] Care Team Providers Care Pharmacy Clinical Specialist Name Role Phone Emilia Ortiz MD Unavailable [phone] Scott Carballo MD Unavailable [phone] Romelia Fu MD Primary Care Provider + Allergies Active Allergy Reactions Criticality Noted Date Comments Iodinated Contrast Media Hives Medium 06/27/2018 Hives developed 4 days after cardiac cath, no other aggravating agent could be identified. Erythromycin Nausea only,Stomach upset Low 12/02/2018 Diarrhea/cramping Iodine Hives Medium 03/03/2019 IVP dye Penicillins Rash,Hives Medium 03/24/2018 Medications cholecalciferol (VITAMIN D-3) 92011 unit tabletIndications :Vitamin D Deficiency Take 1 tablet (50,000 Units total) by mouth once a week Sundays Active ferrous sulfate 325 mg (65 mg of elemental iron) tabletIndications :Iron Deficiency Anemia Take 1 tablet (325 mg total) by mouth daily with breakfast Active olopatadine 0.6 % spray,non-aerosol Indications:Aller gic Rhinitis Administer 2 sprays into affected nostril(s) 2 (two) times a day 08/17/20 22 Active acetaminophen ER (TYLENOL) 650 mg 8 hr tabletIndications :Pain Take 1 tablet (650 mg total) by mouth every 8 (eight) hours as needed for pain Active pantoprazole DR (PROTONIX) 40 mg EC tabletIndications :Treatment of Non-Bleeding Gastric Disorder Take 1 tablet (40 mg total) by mouth daily before breakfast 02/21/20 23 Active Xhance 93 mcg/actuation aerosol breath activatedIndicati ons:chronic rhinosinusitis with nasal polyposis Administer 2 sprays into affected nostril(s) 2 (two) times a day 06/03/20 23 Active finasteride (PROSCAR) 5 mg tablet Take 1 tablet (5 mg total) by mouth daily 90 tablet 3 11/15/19 24 Active Stiolto Respimat 2.5-2.5 mcg/actuation inhalerIndication s:Bronchospasm Prevention with COPD Inhale 1 puff every morning Active cyanocobalamin, vitamin B-12, 1,000 mcg lozengeIndication s:Prevention of Vitamin B12 Deficiency Take 1,000 mcg by mouth every morning 12/02/19 24 Active pravastatin (PRAVACHOL) 40 mg tablet TAKE 1 TABLET DAILY 90 tablet 2 03/10/20 24 Active metoprolol XL (TOPROL-XL) 25 mg extended release tabletIndications :Paroxysmal atrial fibrillation (HCC) TAKE 1 TABLET BY MOUTH DAILY 90 tablet 1 06/11/20 24 Active sacubitriL-valsar esparza (Entresto) 24-26 mg tabletIndications :Chronic systolic heart failure (HCC) Take 0.5 tablets by mouth 2 (two) times a day If systolic BP is < 90, skip next dose of Entresto 07/02/20 24 Active psyllium husk (KONSYL) 6 gram packetIndications :constipation Take 1 packet (6 g total) by mouth 3 (three) times a day Active tadalafiL (CIALIS) 20 mg tablet TAKE 1 TABLET BY MOUTH DAILY NEEDED FOR ERECTILE DYSFUNCTION. 10 tablet 11 09/08/19 25 Active dabigatran (PRADAXA) 150 mg capsule TAKE 1 CAPSULE TWICE DAILY 180 capsule 11/03/19 25 Active dabigatran (PRADAXA) 150 mg capsule Take 1 capsule (150 mg total) by mouth 2 (two) times a day 180 capsule 1 09/09/19 24 2024 Discontinued Active Problems Problem Noted Date Diagnosed Date Atrial fibrillation 07/24/2024 BPH (benign prostatic hyperplasia) 07/24/2024 Assessment & Plan (07/24/2024 2:44 PM ORIENTATION AND MOBILITY SPECIALIST): - Continue home finasteride Bilateral renal masses 06/08/2021 Assessment & Plan (06/09/2021 9:33 AM CDT): CT 05/31 with R 5 & 2 cm solid masses, L 2 cm solid mass - likely malignancy - follows with [facility] urology - s/p R renal biopsy 06/08 - CBC stable. 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 NICM (nonischemic cardiomyopathy) 08/04/2018 Assessment & Plan (07/24/2024 2:38 PM ORIENTATION AND MOBILITY SPECIALIST): - Continue home entresto, metoprolol Chronic systolic heart failure (CMS/HCC) 018 Assessment & Plan (06/08/2021 2:01 PM CDT): Cont home metoprolol and entresto JOHANNE (obstructive sleep apnea) 08/04/2018 Assessment & Plan (07/24/2024 2:38 PM ORIENTATION AND MOBILITY SPECIALIST): - Home BiPAP ordered Assessment & Plan (06/08/2021 2:01 PM CDT): Cont home bipap, pt brought his own device Paroxysmal atrial fibrillation 03/24/2018 Assessment & Plan (07/25/2024 10:35 AM ORIENTATION AND MOBILITY SPECIALIST): S/p uncomplicated atrial fibrillation ablation on 07/24 [...] Encounters Date Type Department Care Team Description 11/20/2024 12:00 PM CDT Office Visit [facility] Urology [address] Medical Office [address] [place] [address] Wilbur Tesfaye MD Renal oncocytoma of right kidney (Primary Dx) 11/20/2024 10:37 AM CDT - 11/20/2024 11:59 PM CDT Hospital Encounter [facility] [facility] [address] [place] [address] Renal oncocytoma of right kidney Discharge Disposition: Discharge to home or self care 10/13/2024 1:30 PM ORIENTATION AND MOBILITY SPECIALIST Office Visit [facility] Cardiology [address] Office [address] [place] [address] Deidra Osman NP Atrial fibrillation, unspecified type (HCC) (Primary Dx) from Last 3 Months [...] on file Legal Sex Male 7:16 PM ORIENTATION AND MOBILITY SPECIALIST Gender Identity Male 07/06/2020 12:33 PM ORIENTATION AND MOBILITY SPECIALIST Sexual Orientation Straight 07/06/2020 12 :33 PM ORIENTATION AND MOBILITY SPECIALIST Obstetrics History Last Filed Vital Signs Vital Sign Reading Time Taken Comments Blood Pressure 109/82 10/13/2024 1:31 PM ORIENTATION AND MOBILITY SPECIALIST Pulse 78 10/13/2024 1:31 PM ORIENTATION AND MOBILITY SPECIALIST Temperature 36.8 C (98.2 F) 07/25/2024 7:40 AM ORIENTATION AND MOBILITY SPECIALIST Respiratory Rate 18 07/25/2024 7:40 AM ORIENTATION AND MOBILITY SPECIALIST Oxygen Saturation 97% 10/13/2024 1:31 PM ORIENTATION AND MOBILITY SPECIALIST Inhaled Oxygen Concentration - - Weight 68.5 kg (151 lb) 10/13/2024 1:31 PM ORIENTATION AND MOBILITY SPECIALIST Height 175.3 cm (5' 9 ) 10/13/2024 1:31 PM ORIENTATION AND MOBILITY SPECIALIST Body Mass Index 22.3 10/13/2024 1:31 PM ORIENTATION AND MOBILITY SPECIALIST Plan of Treatment Health Maintenance Due Date Last Done Comments Depression Screening 1945 Hepatitis B Screening 1961 Zoster Vaccine (1 of 2) 1993 Well Visit 65+ 2008 DTaP/Tdap/Td Vaccine (1 - Tdap) 04/03/2009 9, 08/12/2002 Fall Risk Assessment 07/25/2025 07/25/2024 Pneumococcal vaccine 65+ Completed 05/17/2016, 05/03 Influenza Vaccine Completed 06/02/2024, , 06/10/2018 Medical Devices Implanted Type Area Medical Billing Specialist Device Identifier Shelf Expiration Date Model / Serial / Lot [employer] Device Vascular Closure Femoral Artery Bioabsorbable Dual Method Vascade 6-7fr Collagen [id number] - [id number] - [id number] Implanted:Qty: 1 on 07/24/2024 by Rayo Huerta MD at [facility] Vascular Closure Device Left: Groin [employer] 12/10/2025 700-580I- 05U / [id number] / [id number] [id number] [employer] Vascade Mvp 6-12fr Venous Closure [id number] - [id number] - [id number] Implanted:Qty: 1 on 07/24/2024 by Rayo Huerta MD at [facility] Vascular Closure Device Left: Groin [employer] 03/30/2026 800-612C- 10U / [id number] / [id number] [id number] [employer] Device Vascular Closure Vascade Mvp Xl 10-12fr Venous Strl [id number] - [id number] - [id number] Implanted:Qty: 1 on 07/24/2024 by Rayo Huerta MD at [facility] Vascular Closure Device Right: Groin [employer] 05/11/2026 800-1012X L / [id number] / [id number] Procedures Procedure Name Priority Date/Time Associated Diagnosis Comments US KIDNEY COMPLETE Schedule Routine, Read Routine (OP Routine) 11/20/2024 12:18 PM CDT Renal oncocytoma of right kidney ECG 12-LEAD Routine 10/13/2024 1:25 PM ORIENTATION AND MOBILITY SPECIALIST Atrial fibrillation, unspecified type (HCC) from Last 3 Months Results * US Kidney Complete (11/20/2024 12:18 PM CDT) Anatomical Region Laterality Modality Kidney N/A Ultrasound 11/20/2024 12:2 7 PM CDT Impressions 11/20/2024 12:27 PM CDT 1. There is a 5.5 cm vascular heterogenous mildly hyperechoic exophytic mass arising from the midpole of the right kidney which is most consistent with a renal cell carcinoma. 2. There is a 1.2 cm heterogenous mildly hyperechoic exophytic mass arising from the midpole of the left kidney which is favored to represent a renal cell carcinoma. 3. No hydronephrosis. Electronically signed by: Jane Marroquin M.D. Narrative 11/20/2024 12:27 PM CDT EXAMINATION: COMPLETE RENAL SONOGRAM HISTORY: Renal mass COMPARISON: Abdomen and pelvis, 05/17/2023 FINDINGS: Kidneys: The echogenicity of both kidneys is normal. The kidneys are normal in size. The right kidney measures 10.5 cm in length, and the left, 10.7 cm in length. There is no hydronephrosis in either kidney. There are no renal calculi visualized. There is a heterogenous mildly hyperechoic exophytic mass arising from the pole of the right kidney with internal vascularity which measures 5.5 x 5.1 x 4.6 cm is an exophytic anechoic cyst arising from the superior pole of right kidney. There is an exophytic mildly hyperechoic lesion arising from the midpole of the left kidney which measures 1.2 x 1.2 x 1.0 cm without visualized internal vascularity. Bladder: The urinary bladder is normal Procedure Note Jane Marroquin MD - 11/20/2024 EXAMINATION: COMPLETE RENAL SONOGRAM HISTORY: Renal mass COMPARISON: Abdomen and pelvis, 05/17/2023 FINDINGS: Kidneys: The echogenicity of both kidneys is normal. The kidneys are normal in size. The right kidney measures 10.5 cm in length, and the left, 10.7 cm in length. There is no hydronephrosis in either kidney. There are no renal calculi visualized. There is a heterogenous mildly hyperechoic exophytic mass arising from the pole of the right kidney with internal vascularity which measures 5.5 x 5.1 x 4.6 cm is an exophytic anechoic cyst arising from the superior pole of right kidney. There is an exophytic mildly hyperechoic lesion arising from the midpole of the left kidney which measures 1.2 x 1.2 x 1.0 cm without visualized internal vascularity. Bladder: The urinary bladder is normal IMPRESSION: 1. There is a 5.5 cm vascular heterogenous mildly hyperechoic exophytic mass arising from the midpole of the right kidney which is most consistent with a renal cell carcinoma. 2. There is a 1.2 cm heterogenous mildly hyperechoic exophytic mass arising from the midpole of the left kidney which is favored to represent a renal cell carcinoma. 3. No hydronephrosis. Electronically signed by: Jane Marroquin M.D. us Wilbur Tesfaye MD IMG US PROCEDURES Final R esult * ECG 12 lead (10/13/2024 1:25 PM ORIENTATION AND MOBILITY SPECIALIST) us Deidra Osman NP ECG ORDERABLES Edited R esult - Final from Last 3 Months Insurance [facility] [employer] [facility] [employer] [facility] [employer] Advance Directives For more information, please contact: [phone] * Full Code (Latest Code Status on File) Date Activated Date Inactivated Comments 07/24/2024 2:02 PM 07/25/2024 3:38 PM * Full Code Date Activated Date Inactivated Comments 06/08/2021 9:09 AM 06/13/2021 4:48 AM Care Teams Pharmacy Clinical Specialist Relationship Specialty Start Date End Date Romelia Fu MD [address] [address] PCP - General Family Medicine 01/04/21 Emilia Ortiz MD Consulting Physician Critical Care Med 10/15/18 Scott Carballo MD [address] [address] Referring Physician Neurology 07/12/20
--- OUTSIDE RECORDS SUMMARY | 2024-11-27 00:16 | XMS_ITS | Encounter Summary ---
Author Organization [facility] Address [address] [place] [address] Care Team Providers Care Fingernail Sculpturer Name Role Phone Tomy Barcenas MD Primary Care Provider [phone] Romelia Fu MD Primary Care Provider + [phone] Encounter Details Date Type Department Care Team (Late Contact Info) Description 04/24/2024 Lab Requisition [facility] - DermPath Lab [address] [place] [id number] Bsosman Jain MD [address] [place] [address] Social History Tobacco Use Types [...] Visit [facility] - ENT [address] [place] [id number] Darwin Jaimes MD [address] [place] [address] [place] [address] documented as of this encounter Procedures Procedure Name Priority Date/Time Associated Diagnosis Comments DERMATOPATHOLOGY Routine 04/22/2024 12:0 0 AM CDT documented in this encounter Results * DERMATOPATHOLOGY (04/22/2024 12:00 AM CDT) Case Report Dermatopathology Report Case: [id number] Authorizing Provider: Bossman Jain MD Collected: 04/22/2024 12:00 AM Ordering Location: [facility] - Received: 04/24/2024 [...] characteristic determined by the Dermatopathology Laboratory at [facility], directed by Dr. Niko Wade. These tests need not be, and therefore are not, approved by the [place] Food and Drug Administration. The tests are used for clinical purposes. Billing Codes Specimen Charges Stain Charges 27025 [id number] 1 1 1 4 1:58 PM CDT [...] LAB - PATHOLOGY/CYTO LOGY ORDERABLES DERMATOPATHOLOGY LABORATORY [facility] - Department of Dermatology [facility] [address] [place] [address], [address] [phone] documented in this encounter Visit Diagnoses Not on filedocumented in this encounter Care Teams Fingernail Sculpturer Relationship Specialty Start Date End Date Tomy Barcenas MD [address] [place] [id number] PCP - General 10/02/11 05/17/24 Romelia Fu MD [address] [place] [id number] PCP - General Family Medicine 05/18/24 documented as of this encounter
--- OUTSIDE RECORDS SUMMARY | 2024-11-27 00:16 | XMS_ITS | Clinical Summary ---
Author Organization [facility] [employer] Address [address] [facility] [place] [address] Care Team Providers Care Light Bulb Replacer Name Role Phone Romelia Fu MD Primary Care Provider [phone] Source Comments [facility],non-owned Affiliates and Associated Physician Practices is amultiple site organization consisting of ambulatory clinics and hospital sitesin [place], [place], [place] and [place]. This disclosure is being madepursuant to the Care Everywhere program and may not contain all information available regarding this patient. Last updated 18.[facility] [employer] Allergies Active Allergy Reactions Criticality Noted Date [...] Date End Date Status Cholecalciferol 1.25 MG (49232 UT) Take 1 (one) tablet by mouth [...] Active olopatadine (Patanase) 0.6 % nasal solution [place] 1 (one) spray into each nostril 2 [...] Only [facility] [address] [place] [address] Patito Deng, nitrocellulose maker throat clearing; Chronic cough; Muscle tension dysphonia; PND (post-nasal drip) 09/04/2024 Orders Only [facility] [address], [address] [place] [address] Alice Benson APRN-GLORIA Chronic throat clearing ; Chronic cough; Muscle tension dysphonia; PND (post-nasal drip) 09/01/2024 8:00 AM ELECTROCARDIOGRAPH OPERATOR Office Visit [facility] [address] [place] [phone] Renetta Amaya SLP Muscle tension dysphonia (Primary Dx); Chronic cough; Chronic throat clearing 09/01/2024 7:45 AM ELECTROCARDIOGRAPH OPERATOR Office Visit [facility] [address] [place] [phone] Darwin Jaimes MD Muscle tension dysphonia (Primary [...] Comments Blood Pressure 134/88 09/01/2024 7:54 AM ELECTROCARDIOGRAPH OPERATOR Pulse 64 09/01/2024 7:54 AM ELECTROCARDIOGRAPH OPERATOR Temperature - - Respiratory Rate - - Oxygen Saturation - - Inhaled Oxygen Concentration - - Weight 72.1 kg (159 lb) 09/01/2024 7:54 AM ELECTROCARDIOGRAPH OPERATOR Height 175.3 cm (5' 9 ) 09/01/2024 7:54 AM ELECTROCARDIOGRAPH OPERATOR Body Mass Index 23.48 09/01/2024 7:54 AM ELECTROCARDIOGRAPH OPERATOR Plan of Treatment Upcoming Encounters Date Type Department Care Team (Late st Contact Info) Description 12/08/2024 11:15 AM CDT Office Visit [facility] [address] [facility], [place] [address] Darwin Jaimes MD [facility] DEPT [place] [address] Health Maintenance Due Date Last Done Comments [...] complete this topic MENINGOCOCCAL (Group B) VACCINE SHARED DECISION-MAKING Aged Out No longer eligible based on patient's age to complete this topic MENINGOCOCCAL GROUPS A/C/Y/W VACCINE Aged Out No longer eligible b ased on patient's age to complete this topic Care Teams Light Bulb Replacer Relationship Specialty Start Date End Date Romelia Fu MD [address] [place] [address] PCP - General Family Medicine 05/18/24
--- OUTSIDE RECORDS SUMMARY | 2024-11-27 00:16 | XMS_ITS | Encounter Summary ---
Author Organization [facility] Address [address] [facility] [place] [address] Care Team Providers Care Stroboroma Operator Name Role Phone Tomy Barcenas MD Primary Care Provider [phone] Romelia Fu MD Primary Care Provider + -[phone] Encounter Details Date Type Department Care Team (Late Contact Info) Description 10/21/2019 Lab Requisition [facility] [address] [place] [phone] Bossman Jain MD [address] [place] [address] Social History Tobacco Use Types [...] Office Visit [facility] [address] [place] [phone] Darwni Jaimes MD [address] [place] [address] [place] [address] documented as of this encounter Procedures Procedure Name Priority Date/Time Associated Diagnosis Comments DERMATOPATHOLOGY Routine 10/20/2019 12:0 0 AM COMMERCIAL PROJECT MANAGER documented in this encounter Results * DERMATOPATHOLOGY (10/20/2019 12:00 AM COMMERCIAL PROJECT MANAGER) Case Report Dermatopathology Report Case: [id number] Authorizing Provider: Bossman Jain MD Collected: 10/20/2019 12:00 AM Ordering Location: [facility] Received: 10/21/2019 11:59 AM Pathologist: Francisca Wade MD Specimen: Skin, left mid clavicle 0 3:53 PM COMMERCIAL PROJECT MANAGER DERMATOPATHOLOGY LABORATORY Final Diagnosis Specimen A. SKIN, left mid clavicle: BASAL CELL CARCINOMA, NODULAR TYPE (C44.619) 0 3:53 PM COMMERCIAL PROJECT MANAGER DERMATOPATHOLOGY LABORATORY Clinical History R/O BCC. 0 3:53 PM COMMERCIAL PROJECT MANAGER DERMATOPATHOLOGY LABORATORY Gross Description Specimen A: Received is one formalin filled container labeled with the patient's name and designated left mid clavicle. The specimen consists of a shave biopsy measuring 10x8x1 mm. Jar 0. 0 3:53 PM COMMERCIAL PROJECT MANAGER DERMATOPATHOLOGY LABORATORY Microscopic Description Specimen A. SKIN, left mid clavicle: Within the dermis there are aggregates of basaloid cells with a high nuclear to cytoplasmic ratio and peripheral palisading. 0 3:53 PM COMMERCIAL PROJECT MANAGER DERMATOPATHOLOGY LABORATORY Disclaimer An external and internal positive and negative controls are appropriate for the histochemical, immunohistochemical and immunofluorescence stain(s) in this case (if any), except where stated explicitly. The performance characteristics of the stain(s) cited in this report were developed and its performance characteristic determined by the Dermatopathology Laboratory at [facility], directed by Dr. Niko Wade. These tests need not be, and therefore are not, approved by the [place] Food and Drug Administration. The tests are used for clinical purposes. Billing Codes Specimen Charges Stain Charges 55416 1 0 3:53 PM COMMERCIAL PROJECT MANAGER DERMATOPATHOLOGY LABORATORY Embedded Images 0 3:53 PM COMMERCIAL PROJECT MANAGER DERMATOPATHOLOGY LABORATORY Pathology/Cytolog y TISSUE SPECIMEN FROM SKIN / Unknown 10/20/2019 10/21/2019 11:59 AM COMMERCIAL PROJECT MANAGER Bossman Jain MD LAB - PATHOLOGY/CYTO LOGY ORDERABLES DERMATOPATHOLOGY LABORATORY [facility] - Department of Dermatology [facility], 5th Floor Lab [address] [phone] documented in this encounter Visit Diagnoses Not on filedocumented in this encounter Care Teams Stroboroma Operator Relationship Specialty Start Date End Date Tomy Barcenas MD [address] [place] [address] PCP - General 10/02/11 05/17/24 Romelia Fu MD [address] [place] [address] PCP - General Family Medicine 05/18/24 documented as of this encounter
--- OUTSIDE RECORDS SUMMARY | 2024-11-27 00:16 | XMS_ITS | Encounter Summary ---
Author Organization [facility] Address [facility] [place] [address] Care Team Providers Care Customer Relations Coordinator Name Role Phone Romelia Fu MD Primary Care Provider [phone] Reason for Visit * Reason Onset Date Comments Nurse Only 07/23/2024 MEDICATION REFILL 07/23/2024 Encounter Details Date Type Department Care Team (Late st Contact Info) Description 07/23/2024 Telephone [facility] [address] [place] [phone] Darwin Jaimes MD [address] [place] [address] [place] [address] Nurse Only; MEDICATION REFILL Social History Tobacco [...] is having surgery tomorrow at 6 am RAL ACTIVITIES THERAPIST documented in this encounter Plan of Treatment Upcoming Encounters Date Type Department Care Team (Late st Contact Info) Description 12/08/2024 11:15 AM CDT Office Visit [facility] [address] [place] [address], [place] [address] Darwin Jaimes MD [address] [place] [address] [place] [address] documented as of this encounter Visit Diagnoses Not on filedocumented in this encounter Care Teams Customer Relations Coordinator Relationship Specialty Start Date End Date Romelia Fu MD [address] [place] [address] PCP - General Family Medicine 05/18/24 documented as of this encounter
--- OUTSIDE RECORDS SUMMARY | 2024-11-27 00:16 | XMS_ITS | Encounter Summary ---
Author Organization [facility] Address [address] [place] [address] Care Team Providers Care Second Baller Name Role Phone Tomy Barcenas MD Primary Care Provider [phone] Romelia Fu MD Primary Care Provider + [phone] Encounter Details Date Type Department Care Team (Late Contact Info) Description 12/04/2023 Lab Requisition [facility] [address] [place] [phone] Bossman Jain MD [address] [place] [address] Social History Tobacco Use Types [...] Visit [facility] [address] [place] [phone] Darwin Jaimes MD [address] [place] [address] [place] [address] documented as of this encounter Procedures Procedure Name Priority Date/Time Associated Diagnosis Comments DERMATOPATHOLOGY Routine 12/03/2023 12:0 0 AM CDT documented in this encounter Results * DERMATOPATHOLOGY (12/03/2023 12:00 AM CDT) Case Report Dermatopathology Report Case: [id number] Authorizing Provider: Bossman Jain MD Collected: 12/03/2023 12:00 AM Ordering Location: [facility] - Received: 12/05/2023 06:32 AM [...] specimen consists of a shave biopsy measuring 00a96k8 mm. Jar 0. Specimen C: Received is one formalin filled container labeled with the patient's name and designated left lower deltoid. The specimen consists of a shave biopsy measuring 9x11x3 mm. Jar 0. Specimen D: Received is one formalin filled container labeled with the patient's name and designated right lower deltoid. The specimen consists of a shave biopsy measuring 51e96k7 mm. Jar 0. Specimen E: Received is one formalin filled container labeled with the patient's name and designated right medial lower leg. The specimen consists of a shave biopsy measuring 72j30y1 mm. Jar 0. 4 3:14 PM AURORA [...] determined by the Dermatopathology Laboratory at [facility], directed by Dr. Niko Wade. These tests need not be, and therefore are not, approved by the [place] Food and Drug Administration. The tests are used for clinical purposes. Billing Codes Specimen Charges Stain Charges 32010 18253 96960 11128 14488 1 1 1 1 1 4 3:14 [...] LAB - PATHOLOGY/CYTO LOGY ORDERABLES DERMATOPATHOLOGY LABORATORY [facility] - Department of Dermatology [facility] Medicine [address] [place] [address] [phone] documented in this encounter Visit Diagnoses Not on filedocumented in this encounter Care Teams Second Baller Relationship Specialty Start Date End Date Tomy Barcenas MD [address] [place] [address] PCP - General 10/02/11 05/17/24 Romelia Fu MD [address] [place] [address] PCP - General Family Medicine 05/18/24 documented as of this encounter
--- OUTSIDE RECORDS SUMMARY | 2024-11-27 00:16 | XMS_ITS | Clinical Summary ---
Author Organization [facility] Address [address] [place] [address] Care Team Providers Care Plant Associate Name Role Phone New Referring, Provider Primary [...] this topic Medical Devices Implanted Type Area Gastroenterology Physician Device Identifier Shelf Expiration Date Model / Serial / Lot Iol Toric Lens [id number] - [id number] Implanted:Qty: 1 on 03/09/2019 by Samir Hatfield MD at [facility] Lens Left: Eye [employer] 01/30/2022 [facility] / [id number] / Iol [facility] [id number] Implanted:Qty: 1 on 04/13/2019 by Samir Hatfield MD at [facility] Lens [employer] 04/01/2022 [facility] [id number] / Insurance [facility] [place] [address] Care Teams Plant Associate Relationship Specialty Start Date End Date New Referring, Provider PCP - General UNKNOWN PHYSICIAN SPECIALTY 03/06/19
--- OUTSIDE RECORDS SUMMARY | 2024-11-27 00:16 | XMS_ITS | Encounter Summary ---
Author Organization [facility] Address [address] [place] [address] Care Team Providers Care New Car Salesperson Name Role Phone Tomy Barcenas MD Primary Care Provider [phone] Romelia Fu MD Primary Care Provider + [phone] Encounter Details Date Type Department Care Team (Late Contact Info) Description 05/02/2023 Lab Requisition [facility] Lab [address] [place] [phone] Bossman Jain MD [address] [place] [address] Social History Tobacco Use Types [...] Visit [facility] [address] [place] [phone] Darwin Jaimes MD [address] [place] [address] [place] [address] documented as of this encounter Procedures Procedure Name Priority Date/Time Associated Diagnosis Comments DERMATOPATHOLOGY Routine 05/01/2023 3:33 AM CDT documented in this encounter Results * DERMATOPATHOLOGY (05/01/2023 3:33 AM CDT) Case Report Dermatopathology Report Case: [id number] Authorizing Provider: Bossman Jain MD Collected: 05/01/2023 03:33 AM Ordering Location: [facility] Derm[facility] Lab Received: 05/02/2023 04:52 PM Pathologist: [...] 2x9x2 and 1x7x1 mm. 3 3:55 PM [facility] DERMATOPATHOLOGY LABORATORY Microscopic Description Specimen A. SKIN, [...] acid-Thelma (PAS) stained sections. 3 3:55 PM [facility] DERMATOPATHOLOGY LABORATORY Disclaimer An external and internal positive and negative controls are appropriate for the histochemical, immunohistochemical and immunofluorescence stain(s) in this case (if any), except where stated explicitly. The performance characteristics of the stain(s) cited in this report were developed and its performance characteristic determined by the Dermatopathology Laboratory at [facility], directed by Dr. Niko Wade. These tests need not be, and therefore are not, approved by the [place] Food and Drug Administration. The tests are used for clinical purposes. Billing Codes Specimen Charges Stain Charges 62898 30298 98031 04114 20371 1 1 1 1 1 22298 1 3 3:55 PM CDT DERMATOPATHOLOGY LABORATORY [...] LAB - PATHOLOGY/CYTO LOGY ORDERABLES DERMATOPATHOLOGY LABORATORY [facility] - Department of Dermatology [facility] Medicine [address] [place] [address], [address] Floor [address] [phone] documented in this encounter Visit Diagnoses Not on filedocumented in this encounter Care Teams New Car Salesperson Relationship Specialty Start Date End Date Tomy Barcenas MD [address] [place] [address] PCP - General 10/02/11 05/17/24 Romelia Fu MD [address] [phone] PCP - General Family Medicine 05/18/24 documented as of this encounter
--- OUTSIDE RECORDS SUMMARY | 2024-11-27 00:16 | XMS_ITS | Referral Summary ---
Author Organization [facility] Address [address] [place] [address] Care Team Providers Care Lithopress Operator Name Role Phone Emilia Ortiz MD Unavailable [phone] Scott Carballo MD Unavailable [phone] Romelia Fu MD Primary Care Provider + Encounters Date Type Department Care Team Description 11/20/2024 10:37 AM CDT - 11/20/2024 11:59 PM CDT Hospital Encounter [facility] [facility] [address] [facility] [address] [place] [address] Renal oncocytoma of right kidney Discharge Disposition: Discharge to home or self care 11/20/2024 12:00 PM CDT Office Visit [facility] Urology [address] [facility] Medical Office Building [address] [place] [address] Wilbur Tesfaye MD Renal oncocytoma of right kidney (Primary Dx) 10/13/2024 1:30 PM PAPERHANGER CONTRACTOR Office Visit [facility] Cardiology [address] [facility] Medical Office [address] [place] [address] Deidra Osman NP Atrial fibrillation, unspecified [...] Rash,Hives Medium 03/24/2018 Medications cholecalciferol (VITAMIN D-3) 88984 unit tabletIndications :Vitamin D Deficiency Take 1 [...] 07/24/2024 Assessment & Plan (07/24/2024 2:44 PM PAPERHANGER CONTRACTOR): - Continue home finasteride Bilateral renal masses 06/08/2021 Assessment & Plan (06/09/2021 9:33 AM CDT): CT 05/31 with R 5 & 2 cm solid masses, L 2 cm solid mass - likely malignancy - follows with [facility] urology - s/p R renal biopsy 06/08 - CBC stable. 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 NICM (nonischemic cardiomyopathy) 08/04/2018 Assessment & Plan (07/24/2024 2:38 PM PAPERHANGER CONTRACTOR): - Continue home entresto, metoprolol Chronic systolic heart failure (CMS/HCC) 018 Assessment & Plan (06/08/2021 2:01 PM CDT): Cont home metoprolol and entresto JOHANNE (obstructive sleep apnea) 08/04/2018 Assessment & Plan (07/24/2024 2:38 PM PAPERHANGER CONTRACTOR): - Home BiPAP ordered Assessment & Plan (06/08/2021 2:01 PM CDT): Cont home bipap, pt brought his own device Paroxysmal atrial fibrillation 03/24/2018 Assessment & Plan (07/25/2024 10:35 AM PAPERHANGER CONTRACTOR): S/p uncomplicated atrial fibrillation ablation on 07/24 [...] on file Legal Sex Male 7:16 PM PAPERHANGER CONTRACTOR Gender Identity Male 07/06/2020 12:33 PM PAPERHANGER CONTRACTOR Sexual Orientation Straight 07/06/2020 12 :33 PM PAPERHANGER CONTRACTOR Last Filed Vital Signs Vital Sign Reading Time Taken Comments Blood Pressure 109/82 10/13/2024 1:31 PM PAPERHANGER CONTRACTOR Pulse 78 10/13/2024 1:31 PM PAPERHANGER CONTRACTOR Temperature 36.8 C (98.2 F) 07/25/2024 7:40 AM PAPERHANGER CONTRACTOR Respiratory Rate 18 07/25/2024 7:40 AM PAPERHANGER CONTRACTOR Oxygen Saturation 97% 10/13/2024 1:31 PM PAPERHANGER CONTRACTOR Inhaled Oxygen Concentration - - Weight 68.5 kg (151 lb) 10/13/2024 1:31 PM PAPERHANGER CONTRACTOR Height 175.3 cm (5' 9 ) 10/13/2024 1:31 PM PAPERHANGER CONTRACTOR Body Mass Index 22.3 10/13/2024 1:31 PM PAPERHANGER CONTRACTOR Plan of Treatment Not on file Medical Devices Implanted Type Area Bank Clerk Device Identifier Shelf Expiration Date Model / Serial / Lot [employer] Device Vascular Closure Femoral Artery Bioabsorbable Dual Method Vascade 6-7fr Collagen [id number] - [id number] - [id number] Implanted:Qty: 1 on 07/24/2024 by Rayo Huerta MD at [facility] Vascular Closure Device Left: Groin [employer] 12/10/2025 [id number] [id number] / [id number] / [id number] 15A [employer] Vascade Mvp 6-12fr Venous Closure [id number] - [id number] - [id number] Implanted:Qty: 1 on 07/24/2024 by Rayo Huerta MD at [facility] Vascular Closure Device Left: Groin [employer] 03/30/2026 [id number] 10U / [id number] 30A / [id number] 30A [employer] Device Vascular Closure Vascade Mvp Xl 10-12fr Venous Strl [id number] - [id number] - [id number] Implanted:Qty: 1 on 07/24/2024 by Rayo Huerta MD at [facility] Vascular Closure Device Right: Groin [employer] 05/11/2026 [id number] L / [id number] / [id number] Procedures Procedure Name Priority Date/Time Associated Diagnosis Comments US KIDNEY COMPLETE Schedule Routine, Read Routine (OP Routine) 11/20/2024 12:18 PM CDT Renal oncocytoma of right kidney ECG 12-LEAD Routine 10/13/2024 1:25 PM PAPERHANGER CONTRACTOR Atrial fibrillation, unspecified type (HCC) from Last [...] * ECG 12 lead (10/13/2024 1:25 PM PAPERHANGER CONTRACTOR) us Deidra Osman ROLL WRAPPER ECG ORDERABLES Edited R esult - Final from Last 3 Months Insurance [facility] MEDICARE [facility] MEDICARE [facility] MEDICARE Advance Directives For more information, please contact: [phone] * Full Code (Latest Code Status on File) Date Activated Date Inactivated Comments 07/24/2024 2:02 PM 07/25/2024 3:38 PM * Full Code Date Activated Date Inactivated Comments 06/08/2021 9:09 AM 06/13/2021 4:48 AM Care Teams Lithopress Operator Relationship Specialty Start Date End Date Romelia Fu MD [address] [place] [address] PCP - General Family Medicine 01/04/21 Emilia Ortiz MD Consulting Physician Critical Care Med 10/15/18 Scott Carballo MD [address] [place] [address] Referring Physician Neurology 07/12/20
--- OUTSIDE RECORDS SUMMARY | 2024-11-27 00:16 | XMS_ITS | Encounter Summary ---
Author Organization [facility] Address [address] [facility] [place] [address] Care Team Providers Care Retail Branch Manager Name Role Phone Tomy Barcenas MD Primary Care Provider [phone] Romelia Fu MD Primary Care Provider [phone] Encounter Details Date Type Department Care Team (Late Contact Info) Description 03/10/2024 Lab Requisition [facility] [address] [place] [address] Char Yepez MD [address] [place] [address] Social History Tobacco Use Types Packs/Day Years [...] Visit [facility] [address] [place] [phone] Darwin Jaimes MD [address] [place] [address] [place] [address] documented as of this encounter Procedures Procedure Name Priority Date/Time Associated Diagnosis Comments DERMATOPATHOLOGY Routine 03/10/2024 3:24 PM CDT documented in this encounter Results * DERMATOPATHOLOGY (03/10/2024 3:24 PM CDT) Case Report Dermatopathology Report Case: [id number] Authorizing Provider: Char Yepez MD Collected: 03/10/2024 03:24 PM Ordering Location: [facility] - Received: 03/12/2024 07:56 AM DermPath [...] deltoid.The specimen consists of an ellipse measuring 95c17z4 mm and is oriented with the suture/notch [...] determined by the Dermatopathology Laboratory at [facility], directed by Dr. Niko Wade. These tests need not be, and therefore are not, approved by the [place] Food and Drug Administration. The tests are used for clinical purposes. Billing Codes Specimen Charges Stain Charges 87339 1 4 2:59 PM CDT DERMATOPATHOLOGY LABORATORY Embedded Images 4 2:59 PM CDT DERMATOPATHOLOGY LABORATORY Pathology/Cytolo gy TISSUE SPECIMEN FROM SKIN / Unknown 03/10/2024 3:24 PM CDT 03/12/2024 7:56 AM CDT Char Yepez MD LAB - PATHOLOGY/CYTO LOGY ORDERABLES DERMATOPATHOLOGY LABORATORY [facility] - Department of Dermatology [address], [address] [phone] documented in this encounter Visit Diagnoses Not on filedocumented in this encounter Care Teams Retail Branch Manager Relationship Specialty Start Date End Date Tomy Barcenas MD [address] [place] [address] PCP - General 10/02/11 05/17/24 Romelia Fu MD [address] [place] [address] PCP - General Family Medicine 05/18/24 documented as of this encounter
--- OUTSIDE RECORDS SUMMARY | 2024-11-27 00:16 | XMS_ITS | Encounter Summary ---
Author Organization [facility] Address [address] [facility] [place] [address] Care Team Providers Care Instructional Services Specialist Name Role Phone Tomy Barcenas MD Primary Care Provider [phone] Romelia Fu MD Primary Care Provider [phone] Encounter Details Date Type Department Care Team (Late Contact Info) Description 02/27/2024 Lab Requisition [facility] - DermPath Lab [address] [place] [address] Char Yepez MD [address] [place] [address] Social History Tobacco Use Types Packs/Day Years [...] Visit [facility] - ENT [address] [place] [phone] Darwin Jaimes MD [address] [place] [address] [place] [address] documented as of this encounter Procedures Procedure Name Priority Date/Time Associated Diagnosis Comments DERMATOPATHOLOGY Routine 02/27/2024 2:51 PM CDT documented in this encounter Results * DERMATOPATHOLOGY (02/27/2024 2:51 PM CDT) Case Report Dermatopathology Report Case: [id number] Authorizing Provider: Char Yepez MD Collected: 02/27/2024 02:51 PM Ordering Location: [facility] - Received: 03/02/2024 08:02 AM [...] deltoid.The specimen consists of an ellipse measuring 48t24w5 mm and is oriented with the suture/notch [...] characteristic determined by the Dermatopathology Laboratory at [facility], directed by Dr. Niko Wade. These tests need not be, and therefore are not, approved by the [place] Food and Drug Administration. The tests are used for clinical purposes. Billing Codes Specimen Charges Stain Charges 16153 1 4 2:49 PM CDT DERMATOPATHOLOGY LABORATORY Embedded Images 4 2:49 PM CDT DERMATOPATHOLOGY LABORATORY Pathology/Cytolo gy TISSUE SPECIMEN FROM SKIN / Unknown 02/27/2024 2:51 PM CDT 03/02/2024 8:02 AM CDT Char Yepez MD LAB - PATHOLOGY/CYTO LOGY ORDERABLES DERMATOPATHOLOGY LABORATORY [facility] - Department of Dermatology [address], [address] [phone] documented in this encounter Visit Diagnoses Not on filedocumented in this encounter Care Teams Instructional Services Specialist Relationship Specialty Start Date End Date Tomy Barcenas MD [address] [place] [address] PCP - General 10/02/11 05/17/24 Romelia Fu MD [address] [place] [phone] PCP - General Family Medicine 05/18/24 documented as of this encounter
--- OUTSIDE RECORDS SUMMARY | 2024-11-27 00:16 | XMS_ITS | Encounter Summary ---
Author Organization [facility] Address [address] [facility] [place] [address] Care Team Providers Care Business Professor Name Role Phone Tomy Barcenas MD Primary Care Provider [phone] Romelia Fu MD Primary Care Provider [phone] Encounter Details Date Type Department Care Team (Late Contact Info) Description 05/12/2024 Lab Requisition [facility] - DermPath Lab [address] [place] [address] Char Yepez MD [address] [place] [address] Social History Tobacco Use Types Packs/Day Years [...] Visit [facility] - ENT [address] [place] [phone] Darwin Jaimes MD [address] [place] [address] [place] [address] documented as of this encounter Procedures Procedure Name Priority Date/Time Associated Diagnosis Comments DERMATOPATHOLOGY Routine 05/12/2024 3:35 PM CDT documented in this encounter Results * DERMATOPATHOLOGY (05/12/2024 3:35 PM CDT) Case Report Dermatopathology Report Case: [id number] Authorizing Provider: Char Yepez MD Collected: 05/12/2024 03:35 PM Ordering Location: [facility] - Received: 05/14/2024 06:48 AM [...] forearm.The specimen consists of an ellipse measuring 47t51y3 mm and is oriented with the suture/notch at the 12 o'clock position labeled on the requisition as [id number]. The 12 to 6 o'clock margin is [...] characteristic determined by the Dermatopathology Laboratory at [facility], directed by Dr. Niko Wade. These tests need not be, and therefore are not, approved by the [place] Food and Drug Administration. The tests are used for clinical purposes. Billing Codes Specimen Charges Stain Charges 16298 1 4 1:32 PM CDT DERMATOPATHOLOGY LABORATORY Embedded Images 4 1:32 PM CDT DERMATOPATHOLOGY LABORATORY Pathology/Cytolo gy TISSUE SPECIMEN FROM SKIN / Unknown 05/12/2024 3:35 PM CDT 05/14/2024 6:48 AM CDT Char Yepez MD LAB - PATHOLOGY/CYTO LOGY ORDERABLES DERMATOPATHOLOGY LABORATORY [facility] - Department of Dermatology [facility] Medicine [address] [place] [address], [address] [phone] documented in this encounter Visit Diagnoses Not on filedocumented in this encounter Care Teams Business Professor Relationship Specialty Start Date End Date Tomy Barcenas MD [address] [place] [address] PCP - General 10/02/11 05/17/24 Romelia Fu MD [address] [place] [phone] PCP - General Family Medicine 05/18/24 documented as of this encounter
[2024-11-27 09:27] VITALS: BP 108/57; PULSE 99; RESP 18; TEMP 36.3; O2SAT 100
--- NOTE | 2024-11-27 09:33 | WPDANESEPPF ---
Anes - Initial Pre Proc Eval Procedure: Operation Date: 11/27/24 10:30 Proposed Procedures p Screening Colonoscopy - Javier Jason MD Date/Time: 11/27/24 09:33 Surgeon: Javier Jason MD Pre Op Diagnosis: personal hx colon polyps Patient Data Age: 79 Gender: M Height: 1.78 m Weight: 68.7 kg Last Vital Signs Temp 36.3 C L 11/27/24 09:27 Pulse 99 11/27/24 09:27 Resp 18 11/27/24 09:27 BP 108/57 L 11/27/24 09:27 Pulse Ox 100 11/27/24 09:27 O2 Del Method Room Air 11/27/24 09:27 Allergies Allergy/AdvReac Type Severity Reaction Status Date / Time erythromycin base Allergy Intermediate Abdominal Verified 11/27/24 09:25 discomfort iodine Allergy Mild Hives Verified 11/27/24 09:25 iohexol (From contrast - CT, Allergy Mild Hives Verified 11/27/24 09:25 X-RAY) Penicillins Allergy Mild Hives Verified 11/27/24 09:25 Home Medications ?Medication ?Instructions ?Recorded ?Confirmed ?Type metoprolol succinate 25 mg 25 mg PO DAILY 08/14/19 11/27/24 History tablet,extended release 24 hr pravastatin 40 mg tablet 40 mg PO DAILY 08/14/19 11/27/24 History cholecalciferol (vitamin D3) 1,250 1,250 mcg PO WEEKLY 02/16/21 11/16/24 History mcg (50,000 unit) capsule dabigatran etexilate 150 mg 150 mg PO BID 02/16/22 11/27/24 History capsule (Pradaxa) sacubitril 24 mg-valsartan 26 mg 0.5 tablet PO BID 02/16/22 11/27/24 History tablet (Entresto) tadalafil 20 mg tablet 20 mg PO DAILY PRN Erectile 04/03/22 11/16/24 History Dysfunction ferrous sulfate 325 mg (65 mg 325 mg PO DAILY 08/15/22 11/27/24 History iron) tablet finasteride 5 mg tablet 5 mg PO DAILY 05/27/23 11/27/24 History mecobalamin (vitamin B12) 1,000 1,000 mcg PO DAILY 10/16/23 11/27/24 History mcg chewable tablet tiotropium 2.5 mcg-olodaterol 2.5 See Rx Instructions .Route 04/20/24 11/27/24 Rx mcg/actuation mist for inhalation .COMPLEX #12 grams (Stiolto Respimat) olopatadine 0.6 % nasal spray 2 spray intranasal BID #91.5 grams 08/18/24 11/27/24 Rx pantoprazole 40 mg tablet,delayed See Rx Instructions .Route 09/17/24 11/27/24 Rx release .COMPLEX #90 tabs fluticasone propionate 93 2 spray intranasal Q12H #32 mL 11/18/24 11/27/24 Rx mcg/actuation breath activated aerosol (Xhance) Patient hx anesthesia problems: none Family hx anesthesia problems: none Results Review: All pre-operative results and documents have been reviewed as part of the pre-operative evaluation. [facility] Past Medical History Medical History Skin lesion of left arm Hypertrophy of both inferior nasal turbinates Gross hematuria COVID-19 Left knee DJD Right knee DJD Difficulty with CPAP full face mask use Primary osteoarthritis of right knee Effusion, left knee Chronic low back pain without sciatica Cystic encephalomalacia Vertigo Allergic rhinitis Cancer Basal cell -face, leg and arm Mucus in stool Diarrhea Chronic systolic CHF (congestive heart failure) Complex sleep apnea syndrome Hypertension PAC (premature atrial contraction) CHF (congestive heart failure) Surgical History Surgical History Hx of right inguinal hernia repair LAP RIH repair with mesh, Da Jerome assisted 07/04/22 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 History of cataract removal with insertion of prosthetic lens H/O hernia repair Family History Family History Sibling Family history of transient ischemic attacks Family history of pulmonary embolism Mother Family history of congestive heart failure Social History Social History Social History: Caffeine-none Smoking status: Never smoker Second hand tobacco smoke exposure: Yes (OCCASIONALLY) Alcohol intake: never Alcohol use details: a blue machuca every 2 months Substance use: never Substance use type: does not use Do You Feel Safe in your Home?: Yes Lack of Transportation: No Lack of Food: Never True Current Housing: I Have Housing Concerned About Future Housing: No Difficulty Paying Gas/Electric Bills: No Difficulty Paying for Meds: No Currently Unemployed: No Education: Master's Degree or Higher Difficulty w/ Childcare or Family Care: No Living arrangements: with family Occupation/Education: retired Gender identity (if verbalized by the patient): Male Spiritual care concerns: No Anes - Eval Final PreProcedure Day of Procedure 11/27/24 09:33 Patient weight: normal Heart: regular rate and rhythm Lungs: clear to auscultation Airway: Mallampati scale class II Neurological: alert and oriented Last oral intake: >/= 8 hours ASA classification: III Emergent: no Anesthetic plan: proceed Anesthesia type and monitoring: general GIVS and standard monitoring Results Review: All pre-operative results and documents have been reviewed as part of the pre-operative evaluation. Informed Consent: The patient's anesthetic plan and its attendant risks and benefits were discussed with the patient/family/POA. Questions were solicited and answers provided to the satisfaction of the patient/family/POA.
[2024-11-27] MEDS: LACTATED RINGERS 1,000 ML 150 ML IV CONT (09:44)
--- NOTE | 2024-11-27 09:55 | PM.HPGS ---
History of Present Illness History of Present Illness Consent: Risks, benefits, and alternatives have been discussed and questions answered. Patient agrees to proceed with procedure. Chief complaint: personal hx colon polyps Narrative: Conner Jaimes is a 79 year old male with colon polyp 5 years ago Review of Systems Review of Systems: All systems reviewed & are unremarkable except as noted in HPI and below PMFSH Past Medical History Medical History (Updated 11/27/24 @ 10:00 by Javier Jason MD) Colon polyp Skin lesion of left arm Hypertrophy of both inferior nasal turbinates Gross hematuria COVID-19 Left knee DJD Right knee DJD Difficulty with CPAP full face mask use Primary osteoarthritis of right knee Effusion, left knee Chronic low back pain without sciatica Cystic encephalomalacia Vertigo Allergic rhinitis Cancer Basal cell -face, leg and arm Mucus in stool Diarrhea Chronic systolic CHF (congestive heart failure) Complex sleep apnea syndrome Hypertension PAC (premature atrial contraction) CHF (congestive heart failure) Surgical History Surgical History Hx of right inguinal hernia repair LAP RIH repair with mesh, Da Jerome assisted 07/04/22 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 History of cataract removal with insertion of prosthetic lens H/O hernia repair Family History Family History Sibling Family history of transient ischemic attacks Family history of pulmonary embolism Mother Family history of congestive heart failure Social History Social History Social History: Caffeine-none Smoking status: Never smoker Second hand tobacco smoke exposure: Yes (OCCASIONALLY) Alcohol intake: never Alcohol use details: a blue machuca every 2 months Substance use: never Substance use type: does not use Do You Feel Safe in your Home?: Yes Lack of Transportation: No Lack of Food: Never True Current Housing: I Have Housing Concerned About Future Housing: No Difficulty Paying Gas/Electric Bills: No Difficulty Paying for Meds: No Currently Unemployed: No Education: Master's Degree or Higher Difficulty w/ Childcare or Family Care: No Living arrangements: with family Occupation/Education: retired Gender identity (if verbalized by the patient): Male Spiritual care concerns: No Meds Home Medications and Allergies Home Medications ?Medication ?Instructions ?Recorded ?Confirmed ?Type metoprolol succinate 25 mg 25 mg PO DAILY 08/14/19 11/27/24 History tablet,extended release 24 hr pravastatin 40 mg tablet 40 mg PO DAILY 08/14/19 11/27/24 History cholecalciferol (vitamin D3) 1,250 1,250 mcg PO WEEKLY 02/16/21 11/16/24 History mcg (50,000 unit) capsule dabigatran etexilate 150 mg 150 mg PO BID 02/16/22 11/27/24 History capsule (Pradaxa) sacubitril 24 mg-valsartan 26 mg 0.5 tablet PO BID 02/16/22 11/27/24 History tablet (Entresto) tadalafil 20 mg tablet 20 mg PO DAILY PRN Erectile 04/03/22 11/16/24 History Dysfunction ferrous sulfate 325 mg (65 mg 325 mg PO DAILY 08/15/22 11/27/24 History iron) tablet finasteride 5 mg tablet 5 mg PO DAILY 05/27/23 11/27/24 History mecobalamin (vitamin B12) 1,000 1,000 mcg PO DAILY 10/16/23 11/27/24 History mcg chewable tablet tiotropium 2.5 mcg-olodaterol 2.5 See Rx Instructions .Route 04/20/24 11/27/24 Rx mcg/actuation mist for inhalation .COMPLEX #12 grams (Stiolto Respimat) olopatadine 0.6 % nasal spray 2 spray intranasal BID #91.5 grams 08/18/24 11/27/24 Rx pantoprazole 40 mg tablet,delayed See Rx Instructions .Route 09/17/24 11/27/24 Rx release .COMPLEX #90 tabs fluticasone propionate 93 2 spray intranasal Q12H #32 mL 11/18/24 11/27/24 Rx mcg/actuation breath activated aerosol (Xhance) Allergies Allergy/AdvReac Type Severity Reaction Status Date / Time erythromycin base Allergy Intermediate Abdominal Verified 11/27/24 09:25 discomfort iodine Allergy Mild Hives Verified 11/27/24 09:25 iohexol (From contrast - CT, Allergy Mild Hives Verified 11/27/24 09:25 X-RAY) Penicillins Allergy Mild Hives Verified 11/27/24 09:25 Vital Signs Vital Signs - 24 hr 11/27/24 09:27 Temperature 97.4 F L Pulse Rate 99 Respiratory Rate 18 Blood Pressure 108/57 L Pulse Oximetry 100 Oxygen Delivery Room Air Exam Const: General: comfortable and no acute distress HENMT: Face/Nose/Sinus: Normal nares present Eyes: General: appearance normal, both eyes and all related structures Neck: Neck: no JVD Resp: Auscultation: clear to auscultation bilaterally Cardio: Rate: regular rate Rhythm: regular rhythm GI: Inspection: non-distended GI Palp: Yes Soft to palpation Skin: General skin exam: normal color Neuro: Speech: normal speech Extrem: General: normal to inspection Psych: Mental Status: mental status grossly normal Assessment and Plan Assessment and plan (1) Colon polyp: Code(s): K63.5 - Polyp of colon Status: Acute Assessment and Plan: colonoscopy
[2024-11-27 10:13] VITALS: BP 94/55; PULSE 84; RESP 22; O2SAT 97
[2024-11-27 10:23] VITALS: BP 93/60; PULSE 81; RESP 24; O2SAT 95
[2024-11-27 10:33] VITALS: BP 110/53; PULSE 72; RESP 20; O2SAT 99
[2024-11-27 10:43] VITALS: BP 103/56; PULSE 76; RESP 18; O2SAT 99
== END 2024-11-27 10:50 | disposition home or self-care (01) ==
PROVIDERS: PCP Family Medicine; Referring Provider Internal Medicine Gastroenterology; Visit Provider Internal Medicine Gastroenterology
PROC: 0DJD8ZZ Inspection of Lower Intestinal Tract, Via Natural or Artificial Opening Endoscopic (ICD-10-PCS; CPT 45378; principal; 2024-11-27 10:30)
DX: Z12.11 Encounter for screening for malignant neoplasm of colon (principal); D12.2 Benign neoplasm of ascending colon; K57.30 Diverticulosis of large intestine without perforation or abscess without bleeding; M17.0 Bilateral primary osteoarthritis of knee; I11.0 Hypertensive heart disease with heart failure; I50.22 Chronic systolic (congestive) heart failure; G47.39 Other sleep apnea; I49.1 Atrial premature depolarization; G89.29 Other chronic pain; M54.50 Low back pain, unspecified; G93.89 Other specified disorders of brain; Z79.51 Long term (current) use of inhaled steroids; Z99.89 Dependence on other enabling machines and devices; Z98.890 Other specified postprocedural states; Z85.828 Personal history of other malignant neoplasm of skin; Z82.49 Family history of ischemic heart disease and other diseases of the circulatory system
CPT/HCPCS: 45385; 88305; J2704; J7120

== ENCOUNTER 2024-12-29 12:58 | Outpatient (CLI) | payer MEDICARE, SELFPAY ==
--- NOTE | ~2024-12-29 | CT_ITS ---
CT sinus wo con Ordering provider: Terrence Cotter MD History: . Chronic sinusitis, unspecified . Comparison: None. Technique: Thin slice Scans CT of the paranasal sinuses was performed with coronal and sagittal refor matted images. No IV contrast. . Automated exposure control and iterative reconstruction technique w ere employed. The dose-length product was 390.41 mGy-cm. Findings: NASAL SEPTUM: Very mild left nasal septal deviation. OSTEOMEATAL UNITS: Bilaterally obliterated by mucosal thickening more on the left side. NASAL TURBINATES AND NASOPHARYNX: Normal. PARANASAL SINUSES: Bilateral anterior ethmoid sinus disease. Bilateral maxillary sinus disease. Other pate, Well aerated. VISUALIZED MASTOIDS: Normal as visualized. BONES: Normal. SUPERFICIAL SOFT TISSUES/VISUALIZED BRAIN PARENCHYMA: Normal. IMPRESSION: Bilateral ethmoid, maxillary sinus disease. Mild left nasal septal deviation. Reviewed, dictated and finalized at location A.
== END 2024-12-29 12:59 | disposition home or self-care (01) ==
LOC: GOSHIMG 12:58
PROVIDERS: PCP Family Medicine; Visit Provider Otolaryngology
DX: J32.2 Chronic ethmoidal sinusitis (principal); J32.0 Chronic maxillary sinusitis; J34.2 Deviated nasal septum; J33.9 Nasal polyp, unspecified
CPT/HCPCS: 70486

== ENCOUNTER 2025-05-26 15:30 | Outpatient (CLI) | payer MEDICARE, SELFPAY ==
--- OUTSIDE RECORDS SUMMARY | 2025-05-26 15:33 | XMS_ITS | Encounter Summary ---
Author Organization [facility] Address [address] [facility] [place] [address] Care Team Providers Care Office Assistant Receptionist Name Role Phone Romelia Fu MD Primary Care Provider [phone] Reason for Visit * Reason Onset Date Comments Nurse Only 07/23/2024 MEDICATION REFILL 07/23/2024 Encounter Details Date Type Department Care Team (Late st Contact Info) Description 07/23/2024 Telephone [facility] - ENT [address] [place] [phone] Darwin Jaimes MD [address] [place] [address] [place] [address] Nurse Only; MEDICATION REFILL Social History Tobacco Use Types Packs/Day Years Used Date Smoking Tobacco: Never Smokeless Tobacco: Never Alcohol Use Standard Drinks/Week Comments Not Currently 0 (1 standard drink = 0.6 oz pur e alcohol) rarely Sex and Gender Information Value Date Recorded Sex Assigned at Not on file 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 Gender Identity Not on file Sexual Orientation Not on file documented as of this encounter Miscellaneous Notes * Telephone Encounter - Nu Raymundo - 07/23/2024 3:13 PM CST Pt is calling regarding medication, pharmacy need to speak with the office, before refilling medication Levfloxacin, pt is having surgery tomorrow at 6 am MIDWIFE documented in this encounter Plan of Treatment Not on file documented as of this encounter Visit Diagnoses Not on filedocumented in this encounter Care Teams Office Assistant Receptionist Relationship Specialty Start Date End Date Romelia Fu MD [address] [place] [address] PCP - General Family Medicine 05/18/24 documented as of this encounter
--- OUTSIDE RECORDS SUMMARY | 2025-05-26 15:33 | XMS_ITS | Encounter Summary ---
Author Organization [facility] Address [address] [facility] [place] [address] Care Team Providers Care Services Coordinator Name Role Phone Tomy Barcenas MD Primary Care Provider [phone] Romelia Fu MD Primary Care Provider [phone] Encounter Details Date Type Department Care Team (Late st Contact Info) Description 03/10/2024 Lab Requisition 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 - Received: 03/12/2024 07:56 AM DermPath Lab Pathologist: Suha Mccallum MD Specimen: Skin, left lower deltoid 4 2:59 PM T DERMATOPATHOLOGY LABORATORY Final Diagnosis Specimen A. SKIN, left lower deltoid: DERMAL SCAR RESIDUAL SQUAMOUS CELL CARCINOMA NOT IDENTIFIED (L90.5) ACTINIC KERATOSIS; NOT PRESENT AT MARGIN (L57.0) 4 2:59 PM T DERMATOPATHOLOGY LABORATORY at 1459 CDT Clinical History SCCIS 4 2:59 PM CDT DERMATOPATHOLOGY LABORATORY Gross Description Specimen A: Received is one formalin filled container labeled with the patient's name and designated left lower deltoid.The specimen consists of an ellipse measuring 18p70e6 mm and is oriented with the suture/notch [...] and submitted in cassettes 3-4. Jar 0. 4 2:59 PM T DERMATOPATHOLOGY LABORATORY Microscopic Description Specimen A. SKIN, left lower deltoid: There are fibroblasts and collagen bundles oriented parallel to the skin surface. There are elongated blood vessels, some of which are oriented perpendicular to the skin surface. No residual squamous cell carcinoma is identified. There is also focal parakeratosis. The underlying epidermis shows disorderly maturation of keratinocytes with nuclear pleomorphism. 4 2:59 PM T DERMATOPATHOLOGY LABORATORY Disclaimer An external and internal positive and negative controls are appropriate for the histochemical, immunohistochemical and immunofluorescence stain(s) in this case (if any), except where stated explicitly. The performance characteristics of the stain(s) cited in this report were developed and its performance characteristic determined by the Dermatopathology Laboratory at [facility], directed by Dr. Niko Wade. These tests need not be, and therefore are not, approved by the [place] Food and Drug Administration. The tests are used for clinical purposes. Billing Codes Specimen Charges Stain Charges 16779 1 4 2:59 PM CDT DERMATOPATHOLOGY LABORATORY Embedded Images 4 2:59 PM CDT DERMATOPATHOLOGY LABORATORY Pathology/Cytolo gy TISSUE SPECIMEN FROM SKIN / Unknown 03/10/2024 3:24 PM CDT 03/12/2024 7:56 AM CDT Char Yepez MD LAB - PATHOLOGY/CYTOLOGY ORDERA BLES Final Result DERMATOPATHOLOGY LABORATORY [facility] - Department of Dermatology [facility] Specialized Medicine [address] [place] [address], [address] [phone] documented in this encounter Visit Diagnoses Not on filedocumented in this encounter Care Teams Services Coordinator Relationship Specialty Start Date End Date Tomy Barcenas MD [address] [place], [place] [phone] PCP - General 10/02/11 05/17/24 Romelia Fu MD [address] [address] PCP - General Family Medicine 05/18/24 documented as of this encounter
--- OUTSIDE RECORDS SUMMARY | 2025-05-26 15:33 | XMS_ITS | Encounter Summary ---
Author Organization [facility] Address [address] [place] [address] Care Team Providers Care Hospice Volunteer Coordinator Name Role Phone Tomy Barcenas MD Primary Care Provider +1 [phone] Romelia Fu MD Primary Care Provider [phone] Encounter Details Date Type Department Care Team (Late st Contact Info) Description 04/24/2024 Lab Requisition [facility] - DermPath Lab [address] [facility] [place] [address] Bossman Jain MD [address] [place] [address] Social History Tobacco Use Types Packs/Day Years Used Date Smoking Tobacco: Never Assessed Sex and Gender Information Value Date Recorded Sex Assigned at Not on file 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 Gender Identity Not on file Sexual Orientation Not on file documented as of this encounter Plan of Treatment Not on file documented as of this encounter Procedures Procedure Name Priority Date/Time Associated Diagnosis Comments DERMATOPATHOLOGY Routine 04/22/2024 12:0 0 AM CDT documented in this encounter Results * DERMATOPATHOLOGY (04/22/2024 12:00 AM CDT) Case Report Dermatopathology Report Case: [id number] Authorizing Provider: Bossman Jain MD Collected: 04/22/2024 12:00 AM Ordering Location: [facility] - Received: 04/24/2024 02:06 PM [...] VULGARIS (B07.8) 1:58 PM CDT DERMATOPATHOLOGY LABORATORY at 1358 CDT Clinical History A-C: R/O BCC 1:58 PM [...] granular layer cells, and compact hyperorthokeratosis . 1:58 PM CDT DERMATOPATHOLOGY LABORATORY Disclaimer An external and internal positive and negative controls are appropriate for the histochemical, immunohistochemical and immunofluorescence stain(s) in this case (if any), except where stated explicitly. The performance characteristics of the stain(s) cited in this report were developed and its performance characteristic determined by the Dermatopathology Laboratory at [facility], directed by Dr. Niko Wade. These tests need not be, and therefore are not, approved by the [place] Food and Drug Administration. The tests are used for clinical purposes. Billing Codes Specimen Charges Stain Charges 30779 84004 80053 1 1 1 4 1:58 PM CDT DERMATOPATHOLOGY LABORATORY Embedded Images 4 1:58 PM CDT DERMATOPATHOLOGY LABORATORY Pathology/Cytology TISSUE SPECIMEN FROM SKIN / Unknown 04/22/2024 04/24/2024 2:06 PM CDT Miscellaneous samples (specimen) TISSUE SPECIMEN FROM SKIN / Unknown 04/22/2024 04/24/2024 2:06 PM CDT Miscellaneous samples (specimen) TISSUE SPECIMEN FROM SKIN / Unknown 04/22/2024 04/24/2024 2:06 PM CDT Bossman Jain MD LAB - PATHOLOGY/CYTOLOGY ORD ERABLES Final Result DERMATOPATHOLOGY LABORATORY [facility] - Department of Dermatology [facility] Medicine [address] [place] [address], [address] [phone] documented in this encounter Visit Diagnoses Not on filedocumented in this encounter Care Teams Hospice Volunteer Coordinator Relationship Specialty Start Date End Date Tomy Barcenas MD [address] [place], [place] [id number] PCP - General 10/02/11 05/17/24 Romelia Fu MD [address] [place] [id number] PCP - General Family Medicine 05/18/24 documented as of this encounter
--- OUTSIDE RECORDS SUMMARY | 2025-05-26 15:33 | XMS_ITS | Encounter Summary ---
Author Organization [facility] Address [address] [place] [address] Care Team Providers Care Golf Club Repairer Name Role Phone Tomy Barcenas MD Primary Care Provider [phone] [phone] Romelia Fu MD Primary Care Provider [phone] Encounter Details Date Type Department Care Team (Late st Contact Info) Description 05/02/2023 Lab Requisition [facility] - DermPath Lab [address] [facility] [place] [address] Bossman Jain MD [address] [place] [address] Social History Tobacco Use Types Packs/Day Years Used Date Smoking Tobacco: Never Assessed Sex and Gender Information Value Date Recorded Sex Assigned at Not on file 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 SKIN, left great toenail: ONYCHOMYCOSIS (B35.1) 3 3:55 PM CDT DERMATOPATHOLOGY LABORATORY at 1555 CDT Clinical History A-D: R/O SCCis, SCC E: R/O fungus PAS stain 3 3:55 PM CDT DERMATOPATHOLOGY LABORATORY Gross Description [...] measuring 1x4x1, 2x10x2, 2x9x2 and 1x7x1 mm. 3:55 PM [facility] DERMATOPATHOLOGY LABORATORY Microscopic Description Specimen [...] present on Periodic acid-Thelma (PAS) stained sections. 3:55 PM [facility] DERMATOPATHOLOGY LABORATORY Disclaimer An external and internal positive and negative controls are appropriate for the histochemical, immunohistochemical and immunofluorescence stain(s) in this case (if any), except where stated explicitly. The performance characteristics of the stain(s) cited in this report were developed and its performance characteristic determined by the Dermatopathology Laboratory at [facility], directed by Dr. Niko Wade. These tests need not be, and therefore are not, approved by the [place] Food and Drug Administration. The tests are used for clinical purposes. Billing Codes Specimen Charges Stain Charges 53073 57246 48618 17491 08410 1 1 1 1 1 68950 1 3 3:55 PM T DERMATOPATHOLOGY LABORATORY Embedded Images 3:55 PM [facility] DERMATOPATHOLOGY LABORATORY Pathology/Cytology TISSUE SPECIMEN FROM SKIN [...] PATHOLOGY/CYTOLOGY ORD ERABLES Final Result DERMATOPATHOLOGY LABORATORY [facility] - Department of Dermatology [facility] Medicine [address] [place] [address] [phone] documented in this encounter Visit Diagnoses Not on filedocumented in this encounter Care Teams Golf Club Repairer Relationship Specialty Start Date End Date Tomy Barcenas MD [address] [place], [place] [id number] PCP - General 10/02/11 05/17/24 Romelia Fu MD [address] [place] [id number] PCP - General Family Medicine 05/18/24 documented as of this encounter
--- OUTSIDE RECORDS SUMMARY | 2025-05-26 15:33 | XMS_ITS | Clinical Summary ---
Author Organization [facility] Address [address] [place] [address] Care Team Providers Care Urban Planning Professor Name Role Phone New Referring, Provider Primary [...] 1:33 PM CDT Height 180.3 cm (5' 11) 04/10/2019 1:33 PM CDT Body Mass Index 20.92 04/10/2019 1:33 PM CDT Plan of Treatment Health Maintenance Due Date Last Done Comments Zoster Vaccines (1 of 2) 1993 Annual Medicare Wellness Visit 2008 DTaP, Tdap and Td Vaccines ( 1 - Tdap) 04/03/2009 04/02/2009, 08/12/2002 RSV Immunization or 60+ Years (1 - 1-dose 75+ series) 2018 COVID-19 Vaccine ( - 2023-2 5 season) 2025 Pneumococcal Vaccine: 50+ Years Completed 05/17/2016, 05/17/2009 Meningococcal B Vaccine Aged Out No l onger eligible based on patient's age to complete this topic Meningococcal Vaccine Aged Out No didi shria eligible based on patient's age to complete this topic RSV Immunizations Under 20 Months Aged Out No longer eligible b ased on patient's age to complete this topic Medical Devices Implanted Type Area Program Advisor Device Identifier Shelf Expiration Date Model / Serial / Lot Iol Toric Lens Sa6at4 - [id number] Implanted:Qty: 1 on 03/09/2019 by Samir Hatfield MD at [facility] Lens Left: Eye [employer] 01/30/2022 SA6AT4 / [id number] / Iol Toric Lens Sa6at4 - [id number] Implanted:Qty: 1 on 04/13/2019 by Samir Hatfield MD at [facility] Lens [employer] 04/01/2022 SA6AT4 / [id number] / Insurance MED REPLACE [facility] MEDICARE Care Teams Urban Planning Professor Relationship Specialty Start Date End Date New Referring, Provider PCP - General UNKNOWN PHYSICIAN SPECIALTY 03/06/19
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
--- OUTSIDE RECORDS SUMMARY | 2025-05-26 15:33 | XMS_ITS | Encounter Summary ---
Author Organization [facility] Address [address] [place] [address] Care Team Providers Care Automatic Die Cutting Machine Operator Name Role Phone Tomy Barcenas MD Primary Care Provider [phone] Romelia Fu MD Primary Care Provider [phone] Encounter Details Date Type Department Care Team (Late st Contact Info) Description 05/12/2024 Lab Requisition [facility] - DermPath Lab [address] 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 Gender Identity Not on file Sexual Orientation Not on file documented as of this encounter Plan of Treatment Not on file documented as of this encounter Procedures Procedure Name Priority Date/Time Associated Diagnosis Comments DERMATOPATHOLOGY Routine 05/12/2024 3:35 PM CDT documented in this encounter Results * DERMATOPATHOLOGY (05/12/2024 3:35 PM CDT) Case Report Dermatopathology Report Case: [id number] Authorizing Provider: Char Yepez MD Collected: 05/12/2024 03:35 PM Ordering Location: [facility] Physician [facility] - Received: 05/14/2024 06:48 AM DermPath Lab Pathologist: Suha Mccallum MD Specimen: Skin, right lateral proximal extensor forearm 1:32 PM T DERMATOPATHOLOGY LABORATORY Final Diagnosis Specimen A. 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 The 12 to 6 o'clock margin is inked green. The 6 o'clock to 12 o'clock margin is inked red. The 12 o'clock tip is submitted in cassette 1. The 6 o'clock tip is submitted in cassette 2. The remainder of the ellipse is serially sectioned and submitted in cassettes 3-4. Jar 0. 1:32 PM [facility] DERMATOPATHOLOGY LABORATORY Microscopic Description Specimen A. SKIN, [...] inferior margin of the specimen. 1:32 PM [facility] DERMATOPATHOLOGY LABORATORY Disclaimer An external and internal positive and negative controls are appropriate for the histochemical, immunohistochemical and immunofluorescence stain(s) in this case (if any), except where stated explicitly. The performance characteristics of the stain(s) cited in this report were developed and its performance characteristic determined by the [facility]ermatopathology Laboratory at [facility], directed by Dr. Niko Wade. These tests need not be, and therefore are not, approved by the [place] Food and Drug Administration. The tests are used for clinical purposes. Billing Codes Specimen Charges Stain Charges 86158 1 4 1:32 PM CDT DERMATOPATHOLOGY LABORATORY Embedded Images 4 1:32 PM CDT DERMATOPATHOLOGY LABORATORY Pathology/Cytolo gy TISSUE SPECIMEN FROM SKIN / Unknown 05/12/2024 3:35 PM CDT 05/14/2024 6:48 AM CDT Char Yeepz MD LAB - PATHOLOGY/CYTOLOGY ORDERA BLES Final Result DERMATOPATHOLOGY LABORATORY [facility] - Department of Dermatology [address], [address] [phone] documented in this encounter Visit Diagnoses Not on filedocumented in this encounter Care Teams Automatic Die Cutting Machine Operator Relationship Specialty Start Date End Date Tomy Barcenas MD [address] [place], [place] [id number] PCP - General 10/02/11 05/17/24 Romelia Fu MD [address] [place] [phone] PCP - General Family Medicine 05/18/24 documented as of this encounter
--- OUTSIDE RECORDS SUMMARY | 2025-05-26 15:33 | XMS_ITS | Encounter Summary ---
Author Organization [facility] Address [address] [place] [address] Care Team Providers Care Steam And Power Superintendent Name Role Phone Tomy Barcenas MD Unavailable [phone] Wanda Hodges MD Primary Care Provider [phone]- [phone] Emilia Ortiz MD Unavailable [phone] Scott Carballo MD Unavailable [phone] Romelia Fu MD Primary Care Provider + Encounter Details Date Type Department Care Team (Late st Contact Info) Description 06/18/2018 Orders Only [facility] Health Information Management [address] [place] [address] Scanning, Provider Social History Tobacco Use Types Packs/Day Years Used Date Smoking Tobacco: Never Smokeless Tobacco: Never Alcohol Use Standard Drinks/Week Comments No 0 (1 standard drink = 0.6 oz pur e alcohol) Sex and Gender Information Value Date Recorded Sex Assigned at Not on file Legal Sex Male 7:16 PM BARREL REPAIRER Gender Identity Male 07/06/2020 12:33 PM BARREL REPAIRER Sexual Orientation Straight 07/06/2020 12 :33 PM BARREL REPAIRER documented as of this encounter Plan of Treatment Not on file documented as of this encounter Procedures Procedure Name Priority Date/Time Associated Diagnosis Comments CARDIOLOGY DOCUMENT SCAN 06/18/2018 documented in this encounter Results * Cardiology Document Scan (06/18/2018) Anatomical Region Laterality Modality Other us Provider Scanning CV CARDIAC SERVICES PROCEDURES Final Result documented in this encounter Visit Diagnoses Not on filedocumented in this encounter Care Teams Steam And Power Superintendent Relationship Specialty Start Date End Date Wanda Hodges MD [address] [place] [address] PCP - General Family Practice 03/31/18 01/03/21 Romelia Fu MD [address] [address] PCP - General Family Medicine 01/04/21 Tomy Barcenas MD [address] [place] [address] Family Medicine 03/25/18 10/14/18 Emilia Ortiz MD [address] [place] [address] Consulting Physician Critical Care Med 10/15/18 Scott Carballo MD [address] [address] Referring Physician Neurology 07/12/20 documented as of this encounter
--- OUTSIDE RECORDS SUMMARY | 2025-05-26 15:33 | XMS_ITS | Encounter Summary ---
Author Organization [facility] Address [address] [place] [address] Care Team Providers Care Director Check Name Role Phone Tomy Barcenas MD Primary Care Provider [phone] Romelia Fu MD Primary Care Provider [phone] Encounter Details Date Type Department Care Team (Late st Contact Info) Description 02/27/2024 Lab Requisition [facility] - DermPath Lab [address] [facility] [place] [address] Char Yepez MD [address] [place] [address] Social History Tobacco Use Types Packs/Day Years Used Date Smoking Tobacco: Never Assessed Sex and Gender Information Value Date Recorded Sex Assigned at Not on file 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 Gender Identity Not on file Sexual Orientation Not on file documented as of this encounter Plan of Treatment Not on file documented as of this encounter Procedures Procedure Name Priority Date/Time Associated Diagnosis Comments DERMATOPATHOLOGY Routine 02/27/2024 2:51 PM CDT documented in this encounter Results * DERMATOPATHOLOGY (02/27/2024 2:51 PM CDT) Case Report Dermatopathology Report Case: [id number] Authorizing Provider: Char Yepez MD Collected: 02/27/2024 02:51 PM Ordering Location: [facility] Physician [facility] - Received: 03/02/2024 08:02 AM DermPath Lab Pathologist: Mary Mccallum MD Specimen: Skin, left superior deltoid 2:49 PM CDT DERMATOPATHOLOGY LABORATORY Final Diagnosis Specimen A. SKIN, left superior deltoid: DERMAL SCAR RESIDUAL BASAL CELL CARCINOMA NOT IDENTIFIED (L90.5) 4 2:49 PM CDT DERMATOPATHOLOGY LABORATORY at 1449 CDT Clinical History Bx proven BCC 2:49 PM CDT DERMATOPATHOLOGY LABORATORY Gross Description Specimen A: Received is one formalin filled container labeled with the patient's name and designated left superior deltoid.The specimen consists of an ellipse measuring 04z04c0 mm and is oriented with the suture/notch [...] characteristic determined by the Dermatopathology Laboratory at [facility], directed by Dr. Niko Wade. These tests need not be, and therefore are not, approved by the [place] Food and Drug Administration. The tests are used for clinical purposes. Billing Codes Specimen Charges Stain Charges 52140 1 2:49 PM CDT DERMATOPATHOLOGY LABORATORY Embedded Images 2:49 PM CDT DERMATOPATHOLOGY LABORATORY Pathology/Cytolo gy TISSUE SPECIMEN FROM SKIN / Unknown 02/27/2024 2:51 PM CDT 03/02/2024 8:02 AM CDT Char Yepez MD LAB - PATHOLOGY/CYTOLOGY ORDERA BLES Final Result DERMATOPATHOLOGY LABORATORY [facility] - Department of Dermatology [facility] Medicine [address] [place] [address], [address] [phone] documented in this encounter Visit Diagnoses Not on filedocumented in this encounter Care Teams Director Check Relationship Specialty Start Date End Date Tomy Barcenas MD [address] [place] [address] PCP - General 10/02/11 05/17/24 Romelia Fu MD [address] [place] [address] PCP - General Family Medicine 05/18/24 documented as of this encounter
--- OUTSIDE RECORDS SUMMARY | 2025-05-26 15:33 | XMS_ITS | Clinical Summary ---
Author Organization [facility] Address [address] [place] [address] Care Team Providers Care Adult Psychiatrist Name Role Phone Romelia Fu MD Primary Care Provider [phone] Source Comments [facility],non-owned Affiliates and Associated Physician Practices is amultiple site organization consisting of ambulatory clinics and hospital sitesin [place], [place], [place] and [place]. This disclosure is being madepursuant to the Care Everywhere program and may not contain all information available regarding this patient. Last updated 18.[facility] Allergies Active Allergy Reactions Criticality Noted Date [...] document. Alwaysverify current medications with the patient. Cholecalciferol 1.25 MG (75166 UT) Take 1 (one) tablet by mouth once daily Active dabigatran (praDAXA) 150 MG capsule Take 1 (one) capsule by mouth 2 times daily 4 Active ferrous sulfate 325 (65 FE) MG tablet Take 1 (one) tablet by mouth daily with breakfast Active Multaq 400 MG tablet Take 1 (one) tablet by mouth 2 times daily with morning and evening meal Active finasteride (Proscar) 5 MG tablet Take 1 (one) tablet by mouth once daily 4 Active Xhance 93 MCG/ACT EXHU Inhale 1 puff by mouth as directed 3 Active cyanocobalamin, vitamin B-12, 2500 MCG tablet Dissolve 1 (one) tablet under the tongue once 4 Active metoprolol succinate XL 24hr (Toprol XL) 25 MG tablet Take 1 (one) tablet by mouth once daily 3 Active olopatadine (Patanase) 0.6 % nasal solution [place] 1 (one) spray into each nostril 2 times daily 4 Active pantoprazole EC (Protonix) 40 MG tablet Take 1 (one) tablet by mouth once daily Active pravastatin (Pravachol) 40 MG tablet Take 1 (one) tablet by mouth once daily 4 Active Entresto 24-26 MG tablet Take 0.5 (one-half) tablet by mouth 2 times daily 3 Active tadalafil (Cialis) 20 MG tablet Take 1 (one) tablet by mouth once daily as needed For erectile dysfunction. Active Stiolto Respimat 2.5-2.5 MCG/ACT Inhale 1 puff by mouth as directed Active methylPREDNISol one (Medrol Dosepak) 4 MG tablet Take 1 (one) tablet by mouth as directed Take as directed by mouth per package instructions. Active diphenhydrAMINE (Benadryl) 50 MG capsule Take 1 (one) capsule by mouth every 6 hours as needed Take [address] scan for allergy. Instructions: 4 Active fexofenadine (Debbie) 180 MG tablet Take 1 (one) tablet by mouth every morning Active Psyllium (Konsyl Daily Psyllium Fiber) 83 % PACK Take 6 g by mouth 3 times daily Active Immunizations Immunization Administration Dates Next Due INFLUENZA VACCINE 06/02/2024,06/08/2021 [...] on file Legal Sex Male 5:45 PM SHOP BLACKSMITH Gender Identity Not on file Sexual Orientation Not on file Last Filed Vital Signs Vital Sign Reading Time Taken Comments Blood Pressure 134/88 09/01/2024 7:54 AM SHOP BLACKSMITH Pulse 64 09/01/2024 7:54 AM SHOP BLACKSMITH Temperature - - Respiratory Rate - - Oxygen Saturation - - Inhaled Oxygen Concentration - - Weight 72.1 kg (159 lb) 09/01/2024 7:54 AM SHOP BLACKSMITH Height 175.3 cm (5' 9) 09/01/2024 7:54 AM SHOP BLACKSMITH Body Mass Index 23.48 09/01/2024 7:54 AM SHOP BLACKSMITH Plan of Treatment Health Maintenance Due Date Last Done Comments DTAP/TDAP/TD VACCINES (1 - Tdap) 1962 PNEUMOCOCCAL VACCINE 50+ (1 of 1 - PCV) 1993 ZOSTER VACCINE (1 of 2) 1993 Respiratory Syncytial Virus (RSV) Vaccine Pt: or over 60 yrs (1 - 1-dose 75+ series) 2018 DEPRESSION SCREENING 09/02/2024 MEDICARE AWV CALENDAR YEAR 2024 COVID-19 VACCINE ( - 2023-2 5 season) 2025 INFLUENZA VACCINE (#1) 2025 , 06/08/2021 HEPATITIS B VACCINE Aged Out No [...] on patient's age to complete this topic Insurance [employer] MEDICARE ADV SELF PAY NO INSURANCE Member Subscriber Plan / Payer (Ef fective for All Dates) Name:Gavino Jaimes Member ID:Not on file Relation to Subscriber:Not on file Name:GAVINO JAIMES Subscriber ID:Not on file (Home) Address: [address] [place] [address] Payer ID:Not on file Group ID:Not on file Type:Self Pay Address: [place], [place] * Guarantor: EVELIN JAIMES Account Type Relation to Patient Date of Phone Billing Address Personal/Family Spouse Care Teams Adult Psychiatrist Relationship Specialty Start Date End Date Romelia Fu MD [address] [place] [address] PCP - General Family Medicine 05/18/24
--- OUTSIDE RECORDS SUMMARY | 2025-05-26 15:33 | XMS_ITS | Encounter Summary ---
Author Organization [facility] Address [address] [place] [address] Care Team Providers Care Chip Tester Name Role Phone Tomy Barcenas MD Primary Care Provider [phone] Romelia Fu MD Primary Care Provider [phone] Encounter Details Date Type Department Care Team (Late st Contact Info) Description 10/21/2019 Lab Requisition [facility] DermPath Lab [address] [place] [address] Bossman Jain MD [address] [place] [address] Social History Tobacco Use Types Packs/Day Years Used Date Smoking Tobacco: Never Assessed Sex and Gender Information Value Date Recorded Sex Assigned at Not on file Legal Sex Male 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 Gender Identity Not on file Sexual Orientation Not on file documented as of this encounter Plan of Treatment Not on file documented as of this encounter Procedures Procedure Name Priority Date/Time Associated Diagnosis Comments DERMATOPATHOLOGY Routine 10/20/2019 12:0 0 AM LAUNDRY PRESS OPERATOR documented in this encounter Results * DERMATOPATHOLOGY (10/20/2019 12:00 AM LAUNDRY PRESS OPERATOR) Case Report Dermatopathology Report Case: [id number] Authorizing Provider: Bossman Jain MD Collected: 10/20/2019 12:00 AM Ordering Location: [facility] DermPath Lab Received: 10/21/2019 11:59 AM Pathologist: Francisca Wade MD Specimen: Skin, left mid clavicle 0 3:53 PM LAUNDRY PRESS OPERATOR DERMATOPATHOLOGY LABORATORY Final Diagnosis Specimen A. SKIN, left mid clavicle: BASAL CELL CARCINOMA, NODULAR TYPE (C44.619) 0 3:53 PM LAUNDRY PRESS OPERATOR DERMATOPATHOLOGY LABORATORY at 1553 LAUNDRY PRESS OPERATOR Clinical History R/O BCC. 0 3:53 PM LAUNDRY PRESS OPERATOR DERMATOPATHOLOGY LABORATORY Gross Description Specimen A: Received is one formalin filled container labeled with the patient's name and designated left mid clavicle. The specimen consists of a shave biopsy measuring 10x8x1 mm. Jar 0. 0 3:53 PM LAUNDRY PRESS OPERATOR DERMATOPATHOLOGY LABORATORY Microscopic Description Specimen A. SKIN, left mid clavicle: Within the dermis there are aggregates of basaloid cells with a high nuclear to cytoplasmic ratio and peripheral palisading. 0 3:53 PM LAUNDRY PRESS OPERATOR DERMATOPATHOLOGY LABORATORY Disclaimer An external and internal positive and negative controls are appropriate for the histochemical, immunohistochemical and immunofluorescence stain(s) in this case (if any), except where stated explicitly. The performance characteristics of the stain(s) cited in this report were developed and its performance characteristic determined by the Dermatopathology Laboratory at [facility], directed by Dr. Niko Wade. These tests need not be, and therefore are not, approved by the [place] Food and Drug Administration. The tests are used for clinical purposes. Billing Codes Specimen Charges Stain Charges 09498 1 0 3:53 PM LAUNDRY PRESS OPERATOR DERMATOPATHOLOGY LABORATORY Embedded Images 0 3:53 PM [facility] DERMATOPATHOLOGY LABORATORY Pathology/Cytolog y TISSUE SPECIMEN FROM SKIN / Unknown 10/20/2019 10/21/2019 11:59 AM LAUNDRY PRESS OPERATOR Bossman Jain MD LAB - PATHOLOGY/CYTOLOGY ORD ERABLES Final Result DERMATOPATHOLOGY LABORATORY [facility] - Department of Dermatology [address] [place] [address], [address]th [place] [address], [facility] [phone] documented in this encounter Visit Diagnoses Not on filedocumented in this encounter Care Teams Chip Tester Relationship Specialty Start Date End Date Malench, Tomy E, MD [address] [place], [place] [id number] PCP - General 10/02/11 05/17/24 Romelia Fu MD [address] [place] [address] PCP - General Family Medicine 05/18/24 documented as of this encounter
--- OUTSIDE RECORDS SUMMARY | 2025-05-26 15:33 | XMS_ITS | Clinical Summary ---
Author Organization [facility] Address [address] [place] [address] Care Team Providers Care Knot Bumper Name Role Phone Emilia Ortiz MD Unavailable [phone] Scott Carballo MD Unavailable [phone] Romelia Fu MD Primary Care Provider + Allergies Active Allergy Reactions Criticality Noted Date Comments Iodinated Contrast Media Hives Medium 06/27/2018 Hives developed 4 days after cardiac cath, no other aggravating agent could be identified. Erythromycin Nausea only,Stomach upset Low 12/02/2018 Diarrhea/cramping Iodine Hives Medium 03/03/2019 IVP dye Penicillins Rash,Hives Medium 03/24/2018 Medications cholecalciferol (VITAMIN D-3) 38877 unit tabletIndications :Vitamin D Deficiency Take 1 [...] (two) times a day 06/03/20 23 Active Stiolto Respimat 2.5-2.5 mcg/actuation inhalerIndication s:Bronchospasm Prevention with COPD Inhale 1 puff every morning Active cyanocobalamin, vitamin B-12, 1,000 mcg lozengeIndication s:Prevention of Vitamin B12 Deficiency Take 1,000 mcg by mouth every morning 12/02/19 24 Active psyllium husk (KONSYL) 6 gram packetIndications :constipation Take 1 packet (6 g total) by mouth 3 (three) times a day Active tadalafiL (CIALIS) 20 mg tablet TAKE 1 TABLET BY MOUTH DAILY NEEDED FOR ERECTILE DYSFUNCTION. 10 tablet 11 09/08/19 25 Active finasteride (PROSCAR) 5 mg tablet TAKE 1 TABLET DAILY 90 tablet 3 12/01/19 25 Active pravastatin (PRAVACHOL) 40 mg tablet TAKE 1 TABLET DAILY 90 tablet 2 12/01/19 25 Active metoprolol XL (TOPROL-XL) 25 mg extended release tabletIndications :Paroxysmal atrial fibrillation (HCC) TAKE 1 TABLET BY MOUTH DAILY 90 tablet 1 12/04/19 25 Active dabigatran (PRADAXA) 150 mg capsule TAKE 1 CAPSULE TWICE DAILY 180 capsule 3 01/22/20 25 Active Entresto 24-26 mg tabletIndications :Chronic systolic heart failure (HCC) TAKE 1/2 TABLET TWICE A DAY 90 tablet 1 05/19/20 25 Active Entresto 24-26 mg tabletIndications :Chronic systolic heart failure (HCC) TAKE 1/2 TABLET TWICE A DAY 90 tablet 1 12/01/19 25 2024 Discontinued Active Problems Problem Noted Date Diagnosed Date Atrial fibrillation 07/24/2024 BPH (benign prostatic hyperplasia) 07/24/2024 Assessment & Plan (07/24/2024 2:44 PM RING ATTACHER): - Continue home finasteride Bilateral renal masses 06/08/2021 Assessment & Plan (06/09/2021 9:33 AM CDT): CT 05/31 with R 5 & 2 cm solid masses, L 2 cm solid mass - likely malignancy - follows with [facility] urology - s/p R renal biopsy 06/08 - CBC stable. 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 NICM (nonischemic cardiomyopathy) 08/04/2018 Assessment & Plan (07/24/2024 2:38 PM RING ATTACHER): - Continue home entresto, metoprolol Chronic systolic heart failure (CMS/HCC) 018 Assessment & Plan (06/08/2021 2:01 PM CDT): Cont home metoprolol and entresto JOHANNE (obstructive sleep apnea) 08/04/2018 Assessment & Plan (07/24/2024 2:38 PM RING ATTACHER): - Home BiPAP ordered Assessment & Plan (06/08/2021 2:01 PM CDT): Cont home bipap, pt brought his own device Paroxysmal atrial fibrillation 03/24/2018 Assessment & Plan (07/25/2024 10:35 AM RING ATTACHER): S/p uncomplicated atrial fibrillation ablation on [...] Encounters Date Type Department Care Team Description 05/06/2025 Telephone [facility] Medicine Cardiology [address] [place] [address] [place] [address] Rayo Huerta MD from Last 3 Months Immunizations Immunization Administration [...] Name Status Comments Brother Father Darwin Jaimes Alive Mother Rosetta Jaimes Sister Social History Tobacco [...] on file Legal Sex Male 7:16 PM RING ATTACHER Gender Identity Male 07/06/2020 12:33 PM RING ATTACHER Sexual Orientation Straight 07/06/2020 12 :33 PM RING ATTACHER Obstetrics History Last Filed Vital Signs Vital Sign Reading Time Taken Comments Blood Pressure 90/58 01/13/2025 3:16 PM CDT Pulse 86 01/13/2025 3:16 PM CDT Temperature 36.8 C (98.2 F) 07/25/2024 7:40 AM RING ATTACHER Respiratory Rate 18 07/25/2024 7:40 AM RING ATTACHER Oxygen Saturation 95% 01/13/2025 3:16 PM CDT Inhaled Oxygen Concentration - - Weight 73.9 kg (163 lb) 01/13/2025 3:16 PM CDT Height 177.8 cm (5' 10) 01/13/2025 3:16 PM CDT Body Mass Index 23.39 01/13/2025 3:16 PM CDT Plan of Treatment Health Maintenance Due Date Last Done Comments Depression Screening 1945 Hepatitis B Screening 1961 Zoster Vaccine (1 of 2) 1993 Well Visit 65+ 2008 DTaP/Tdap/Td Vaccine (1 - Tdap) 04/03/2009 9, 08/12/2002 Influenza Vaccine (#1) 2025 4, 06/08/2021, 06/10/2018 Fall Risk Assessment 07/25/2025 07/25/2024 Pneumococcal vaccine 65+ Completed 05/17/2016, 05/03 Medical Devices Implanted Type Area Occupational Health Physiotherapist Device Identifier Shelf Expiration Date Model / Serial / Lot [employer] Device Vascular Closure Femoral Artery Bioabsorbable Dual Method Vascade 6-7fr Collagen [id number] - [id number] - [id number] Implanted:Qty: 1 on 07/24/2024 by Rayo Huerta MD at [facility] Vascular Closure Device Left: Groin [employer] 12/10/2025 [id number] [id number] / [id number] / [id number] 15A [employer] Vascade Mvp 6-12fr Venous Closure [id number] - [id number] - [id number] Implanted:Qty: 1 on 07/24/2024 by Rayo Huerta MD at [facility] Vascular Closure Device Left: Groin [employer] 03/30/2026 [id number] [id number] / [id number] / [id number] 30A [employer] Device Vascular Closure Vascade Mvp Xl 10-12fr Venous Strl [id number] - [id number] - [id number] Implanted:Qty: 1 on 07/24/2024 by Rayo Huerta MD at [facility] Vascular Closure Device Right: Groin [employer] 05/11/2026 [id number] / [id number] / [id number] Insurance [employer] MEDICARE [facility] [place] [facility] Address: [facility] [id number] [place] [address] [facility] Advance Directives For more information, please contact: [phone] * Full Code (Latest Code Status on File) Date Activated Date Inactivated Comments 07/24/2024 2:02 PM 07/25/2024 3:38 PM * Full Code Date Activated Date Inactivated Comments 06/08/2021 9:09 AM 06/13/2021 4:48 AM Care Teams Knot Bumper Relationship Specialty Start Date End Date Romelia Fu MD [address] [place] [address] PCP - General Family Medicine 01/04/21 Emilia Ortiz MD Consulting Physician Critical Care Med 10/15/18 Scott Carballo MD [address] [facility] [address] [place] [address] Referring Physician Neurology 07/12/20
--- OUTSIDE RECORDS SUMMARY | 2025-05-26 15:33 | XMS_ITS | Encounter Summary ---
Author Organization [facility] Address [address] [place] [address] Care Team Providers Care Hat Finishing Materials Preparer Name Role Phone Romelia Fu MD Primary Care Provider [phone] Encounter Details Date Type Department Care Team (Late st Contact Info) Description 02/16/[address] 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 Physician [employer] - Received: 02/17/2025 07:58 AM DermPath Lab Pathologist: Francisca Wade MD Specimen: Skin, left back 5 4:10 PM CDT DERMATOPATHOLOGY LABORATORY Final Diagnosis Specimen A. SKIN, left back: BASAL CELL CARCINOMA, SUPERFICIAL MULTIFOCAL (C44.519) 5 4:10 PM CDT DERMATOPATHOLOGY LABORATORY at 1610 CDT Clinical History R/O BCC 5 4:10 PM CDT DERMATOPATHOLOGY LABORATORY Gross Description Specimen A: Received is one formalin filled container labeled with the patient's name and designated left back. The specimen consists of a shave biopsy measuring 4x4x1 mm. Jar 0. 4:10 PM CDT DERMATOPATHOLOGY LABORATORY Microscopic Description Specimen A. SKIN, left back: Attached to the undersurface of the epidermis, there are small aggregates of basaloid cells with a high nuclear to cytoplasmic ratio and peripheral palisading. 4:10 PM CDT DERMATOPATHOLOGY LABORATORY Disclaimer An external and internal positive and negative controls are appropriate for the histochemical, immunohistochemical and immunofluorescence stain(s) in this case (if any), except where stated explicitly. The performance characteristics of the stain(s) cited in this report were developed and its performance characteristic determined by the Dermatopathology Laboratory at [facility], directed by Dr. Niko Wade. These tests need not be, and therefore are not, approved by the [place] Food and Drug Administration. The tests are used for clinical purposes. Billing Codes Specimen Charges Stain Charges 39606 1 5 4:10 PM CDT DERMATOPATHOLOGY LABORATORY Embedded Images 5 4:10 PM CDT DERMATOPATHOLOGY LABORATORY Pathology/Cytolo gy TISSUE SPECIMEN FROM SKIN / Unknown 02/16/2025 1:49 PM CDT 02/17/2025 7:58 AM CDT us Julia Bailey MD LAB - PATHOLOGY/CYTOLOGY ORD ERABLES Final Result DERMATOPATHOLOGY LABORATORY [facility] - Department of Dermatology [address], [address] [phone] documented in this encounter Visit Diagnoses Not on filedocumented in this encounter Care Teams Hat Finishing Materials Preparer Relationship Specialty Start Date End Date Romelia Fu MD [address] [place] [address] PCP - General Family Medicine 05/18/24 documented as of this encounter
[2025-05-26 19:09] LABS: Anion Gap 7 mmol/L (4-12); Blood Urea Nitrogen 15 mg/dL (9-20); Calcium 9.0 mg/dL (8.4-10.2); Carbon Dioxide 25 mmol/L (22-30); Chloride 104 mmol/L (98-107); Cholesterol 171 mg/dL (0-200); Estimated Glomerular Filt Rate > 60; Glucose 100 mg/dL (65-110); HDL Direct 33 mg/dL; Potassium 4.2 mmol/L (3.4-5.0); Sodium 136 mmol/L (137-145); Triglycerides 238 mg/dL (<150)
== END 2025-05-26 15:31 | disposition home or self-care (01) ==
LOC: ANHGOSHLAB 15:31
PROVIDERS: PCP Family Medicine; Visit Provider Family Medicine
DX: I11.9 Hypertensive heart disease without heart failure (principal); E78.2 Mixed hyperlipidemia
CPT/HCPCS: 36415; 80048; 80061

== ENCOUNTER 2025-06-29 11:14 | Emergency (ER) | payer MEDICARE, SELFPAY ==
--- NOTE | ~2025-06-29 | XR_ITS ---
EXAMINATION: XR hand RT min 3V, 06/29/2025 11:35 CDT HISTORY: right hand injury, hit with metal tool this am COMPARISON: No comparisons available. Findings: No acute fracture or malalignment. Moderate to severe degenerative changes of the distal and proximal interphalangeal joints, no erosions identified Soft tissues unremarkable. Impression: No acute fracture or malalignment. Reviewed, dictated and finalized at location P. Impression: No acute fracture or malalignment.
--- NOTE | ~2025-06-29 | XR_ITS ---
EXAMINATION: XR wrist LT min 3V, 06/29/2025 11:35 CDT HISTORY: left wrist pain, hit with tool this am COMPARISON: No comparisons available. Findings: No acute fracture or malalignment. Severe degenerative changes of the first metacarpal carpal joint Soft tissues unremarkable. Impression: No acute fracture or malalignment. Reviewed, dictated and finalized at location P. Impression: No acute fracture or malalignment.
--- NOTE | 2025-06-29 11:16 | ED.UPPEXIN ---
HPI - Extremity Injury (Upper) General Chief Complaint: Wound/Laceration Stated Complaint: INJURED L WRIST/BOTH HANDS Source: patient and RN notes reviewed Mode of arrival: ambulatory Limitations: no limitations History of Present Illness HPI narrative: Patient is an 79-year-old male who presents to the [facility] with complaints of left wrist and right hand injury. Patient states that he was cranking up his crossbow when the crank slipped out of his hands, and hit him in the left wrist and right hand. Patient has multiple abrasions/skin tears to the left wrist with some mild swelling; he does have full range of motion of the left wrist. Patient also has some swelling and bruising to the 4th and 5th metacarpals on the right hand; full range of motion of the right hand. He is neurovascularly intact. Sensation is intact. Related Data Home Medications ?Medication ?Instructions ?Recorded ?Confirmed ?Last Taken ?Type metoprolol succinate 25 mg 25 mg PO DAILY 08/14/19 06/29/25 11/27/24 History tablet,extended release 24 hr pravastatin 40 mg tablet 40 mg PO DAILY 08/14/19 06/29/25 11/26/24 History dabigatran etexilate 150 mg 150 mg PO BID 02/16/22 06/29/25 11/24/24 History capsule (Pradaxa) sacubitril 24 mg-valsartan 26 mg 0.5 tablet PO BID 02/16/22 06/29/25 11/26/24 History tablet (Entresto) tadalafil 20 mg tablet 20 mg PO DAILY PRN Erectile 04/03/22 06/29/25 Unknown History Dysfunction ferrous sulfate 325 mg (65 mg 325 mg PO DAILY 08/15/22 06/29/25 11/15/24 History iron) tablet finasteride 5 mg tablet 5 mg PO DAILY 05/27/23 06/29/25 11/26/24 History mecobalamin (vitamin B12) 1,000 1,000 mcg PO DAILY 10/16/23 06/29/25 11/25/24 History mcg chewable tablet multivitamin 1 tablet PO DAILY 12/22/24 06/29/25 Unknown History sodium hyaluronate (viscosup) 10 mg intra-articular 04/29/25 06/16/25 Unknown History mg/mL(mw 2.4-3.6 million)intra-articular syringe (Euflexxa) Allergies Allergy/AdvReac Type Severity Reaction Status Date / Time erythromycin base Allergy Intermediate Abdominal Verified 06/29/25 11:30 discomfort iodine Allergy Mild Hives Verified 06/29/25 11:30 iohexol (From contrast - CT, Allergy Mild Hives Verified 06/29/25 11:30 X-RAY) Penicillins Allergy Mild Hives Verified 06/29/25 11:30 Review of Systems Review of Systems: CONSTITUTIONAL: Denies fever, chills, or sweats. EYES: Denies visual changes, redness, or discharge. ENT: Denies otalgia and sore throat CARDIOVASCULAR: Denies chest pain, palpitations, or edema. RESPIRATORY: Denies cough or dyspnea. GASTROINTESTINAL: Denies abdominal pain, nausea, vomiting, or diarrhea. GENITOURINARY: Denies dysuria or hematuria. SKIN: Abrasions/skin tears to the left wrist. MUSCULOSKELETAL: Reports left wrist and right hand pain. NEUROLOGIC: Denies headache, numbness, or weakness. Pertinent positives per HPI. [facility] Past Medical History Medical History Other fatigue Colon polyp Skin lesion of left arm Hypertrophy of both inferior nasal turbinates Gross hematuria COVID-19 Left knee DJD Right knee DJD Difficulty with CPAP full face mask use Primary osteoarthritis of right knee Effusion, left knee Chronic low back pain without sciatica Cystic encephalomalacia Vertigo Allergic rhinitis Cancer Basal cell -face, leg and arm Mucus in stool Diarrhea Chronic systolic CHF (congestive heart failure) Complex sleep apnea syndrome Hypertension PAC (premature atrial contraction) CHF (congestive heart failure) Surgical History Surgical History H/O cardiac radiofrequency ablation (~07/2024) Hx of right inguinal hernia repair LAP RIH repair with mesh, Da Jerome assisted 07/04/22 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 History of cataract removal with insertion of prosthetic lens H/O hernia repair Family History Family History Sibling Family history of transient ischemic attacks Family history of pulmonary embolism Mother Family history of congestive heart failure Social History Social History Social History: Caffeine-decaf coffee, zero sugar soda Smoking status: Never smoker Second hand tobacco smoke exposure: Yes (OCCASIONALLY) Alcohol intake: current Alcohol use details: a blue machuca every 2 months Substance use: never Substance use type: does not use Do You Feel Safe in your Home?: Yes Lack of Transportation: No Lack of Food: Never True Current Housing: Decline to Answer Concerned About Future Housing: Decline to Answer Difficulty Paying Gas/Electric Bills: Decline to Answer Difficulty Paying for Meds: Decline to Answer Currently Unemployed: No Education: Decline to Answer Difficulty w/ Childcare or Family Care: Decline to Answer Living arrangements: with family Occupation/Education: retired Gender identity (if verbalized by the patient): Male Spiritual care concerns: No Comments At the time of my signature, I reviewed and agree with the nursing past medical, surgical, social, and family history. There is no relevant family history pertinent to the patient complaint. Exam Narrative: GENERAL: This is a well-nourished, well-developed patient, in no apparent distress. HEAD: normocephalic, atraumatic. EYES: PERRL. Sclera clear/white. Vision is grossly intact. EARS: External ears normal, auditory canals clear and without drainage, TMs normal without perforation. Hearing grossly intact. NOSE: External nose normal with no obvious nasal discharge, nares without redness, no rhinorrhea. THROAT: Mucous membranes moist, posterior pharynx clear. NECK: Neck supple, non-tender without lymphadenopathy, masses or thyromegaly. CARDIOVASCULAR: Regular rate and rhythm without murmurs, gallops, or rubs. RESPIRATORY: Clear to auscultation. Breath sounds equal bilaterally. No wheezes, rales, or rhonchi. GASTROINTESTINAL: Abdomen soft, non-tender, nondistended. Bowel sounds are active. No hepato-splenomegaly, or palpable masses. No guarding. SKIN: Multiple abrasions/skin tears to the dorsal aspect of the left wrist. NEURO: awake, alert, and oriented to person, place and time. There were no obvious focal neurologic abnormalities. EXTREMITIES: Left wrist tenderness with mild swelling. Right hand tenderness with mild swelling noted 4th and 5th metacarpals. Full range of motion present. Distal neurovascular and motor status intact. Course Course Level of Care: Express Care Visit Vital Signs Vital signs: Vital Signs Temperature 97.7 F 06/29/25 11:30 Pulse Rate 109 H 06/29/25 11:30 Respiratory Rate 16 06/29/25 11:30 Blood Pressure 99/67 L 06/29/25 11:30 Pulse Oximetry 97 06/29/25 11:30 Temperature 97.7 F 06/29/25 11:30 Pulse Rate 109 H 06/29/25 11:30 Respiratory Rate 16 06/29/25 11:30 Blood Pressure 99/67 L 06/29/25 11:30 Pulse Oximetry 97 06/29/25 11:30 Reviewed MDM - Extremity Injury (Upper) MDM Narrative Medical decision making narrative: Use the RICE method at home. May take ibuprofen and/or Tylenol if needed. If symptoms persist in 1 week after conservative treatment, follow-up with specialist and consider repeat radiographs. Differential Diagnosis Differential diagnosis: Likely sprain and strain of wrist, finger sprain and fracture of hand Imaging Data Attestation: I personally reviewed and interpreted this imaging study as follows: Radiologist's impression: [address] [place] [address] XRay Report Signed Patient: Conner Jaimes : 1945 MR#: [id number] Age: 79 Acct:[id number] Loc: [facility] ADM Date: 06/29/[address]: Ordering Physician: Taryn Jones APRN Date of Service: 06/29/25 Procedure(s): XR hand RT min 3V Accession Number(s): [id number] cc: Taryn Jones APRN; Romelia Fu MD~ EXAMINATION: XR hand RT min 3V, 06/29/2025 11:35 CDT HISTORY: right hand injury, hit with metal tool this am COMPARISON: No comparisons available. Findings: No acute fracture or malalignment. Moderate to severe degenerative changes of the distal and proximal interphalangeal joints, no erosions identified Soft tissues unremarkable. Impression: No acute fracture or malalignment. Reviewed, dictated and finalized at location P. Please be advised this is a medical document. It is intended for [id number] communication. It is written in medical language and may contain unfamiliar abbreviations or verbiage. Medical documents are intended to carry relevant information, facts as evident, and the clinical opinion of the practitioner at the time of the encounter. This report may have been done utilizing a voice recognition system. Attempts have been made to correct errors. However, there may be uncorrected grammatical, spelling, and recognition errors present. The file time of this note does not necessarily represent the time of service. Dictated By: Vinicius Sim MD 06/29/25 1156 Signed By: <Electronically signed by Vinicius Sim MD in [place]> 06/29/25 115[address] [place] [address] XRay Report Signed Patient: Conner Jaimes : 1945 MR#: [id number] Age: 79 Acct:[id number] Loc: [facility] ADM Date: 06/29/[address]: Ordering Physician: Taryn Jones APRN Date of Service: 06/29/25 Procedure(s): XR wrist LT min 3V Accession Number(s): [id number] cc: Taryn Jones APRN; Romelia Fu MD~ EXAMINATION: XR wrist LT min 3V, 06/29/2025 11:35 CDT HISTORY: left wrist pain, hit with tool this am COMPARISON: No comparisons available. Findings: No acute fracture or malalignment. Severe degenerative changes of the first metacarpal carpal joint Soft tissues unremarkable. Impression: No acute fracture or malalignment. Reviewed, dictated and finalized at location P. Please be advised this is a medical document. It is intended for oyqw-pf-whcf communication. It is written in medical language and may contain unfamiliar abbreviations or verbiage. Medical documents are intended to carry relevant information, facts as evident, and the clinical opinion of the practitioner at the time of the encounter. This report may have been done utilizing a voice recognition system. Attempts have been made to correct errors. However, there may be uncorrected grammatical, spelling, and recognition errors present. The file time of this note does not necessarily represent the time of service. Dictated By: Vinicius Sim MD 06/29/25 1156 Signed By: <Electronically signed by Vinicius Sim MD in [place]> 06/29/25 1156 Critical Care Time Critical Care Time Critical Care Time: No Discharge Plan Discharge Clinical Impression: Contusion of left wrist, initial encounter, Contusion of dorsum of right hand Abrasion of multiple sites of left hand and wrist Qualifiers: Encounter type: initial encounter Qualified Code(s): S60.512A - Abrasion of left hand, initial encounter Patient Disposition: Home Condition: Stable Instructions: Contusion in Adults (ED), Abrasion (ED), P.R.I.C.E. Treatment (ED), Wrist Sprain (ED) Additional Instructions: Use the RICE method at home. May take ibuprofen and/or Tylenol if needed. If symptoms persist in 1 week after conservative treatment, follow-up with specialist and consider repeat radiographs. Patient Language: Guinean Prescriptions: No Action Pradaxa 150 mg capsule 150 mg PO BID Entresto 24-26 mg tablet 0.5 tablet PO BID tadalafil 20 mg tablet 20 mg PO DAILY PRN (Reason: Erectile Dysfunction) Rx Instructions: administer approximately 30min before sexual activity; do not use more than 1 dose per 24hrs ferrous sulfate 325 mg (65 mg iron) tablet 325 mg PO DAILY mecobalamin (vitamin B12) 1,000 mcg tablet,chewable 1,000 mcg PO DAILY metoprolol succinate 25 mg tablet extended release 24 hr 25 mg PO DAILY Patient Comments: QAM pravastatin 40 mg tablet 40 mg PO DAILY Patient Comments: HS finasteride 5 mg tablet 5 mg PO DAILY Euflexxa 10 mg/mL(mw 2.4 -3.6 million) syringe intra-articular doxycycline hyclate 100 mg tablet 100 mg PO Q12H Qty: 20 0RF multivitamin Tablet 1 tablet PO DAILY olopatadine 0.6 % spray,non-aerosol 2 spray intranasal BID Qty: 91.5 1RF Rx Instructions: administer into each nostril Stiolto Respimat 2.5-2.5 mcg/actuation mist See Rx Instructions .ROUTE .COMPLEX Qty: 12 3RF Dose Instruction: USE 2 INHALATIONS ORALLY DAILY Rx Instructions: USE 2 INHALATIONS ORALLY DAILY Xhance 93 mcg/actuation aerosol breath activated 2 spray intranasal Q12H Qty: 32 1RF Rx Instructions: into each nostril pantoprazole 40 mg tablet,delayed release (DR/EC) See Rx Instructions .ROUTE .COMPLEX Qty: 90 3RF Dose Instruction: TAKE 1 TABLET DAILY Rx Instructions: TAKE 1 TABLET DAILY Follow-up/Referrals: Noman Arizmendi MD [Physician, Orthopedics] Romelia Fu MD [Primary Care Provider, Family Practice] Time of Disposition: 12:06
[2025-06-29 11:30] VITALS: BP 99/67; PULSE 109; RESP 16; TEMP 36.5; O2SAT 97
[2025-06-29] MEDS: TETANUS,DIPHTHERIA,AC PERTUSSIS ADULT (0.5 ML) BOOSTRIX IM (12:01)
== END 2025-06-29 12:15 | disposition home or self-care (01) ==
PROVIDERS: Emergency Provider Nurse Practitioner; PCP Family Medicine
DX: S60.212A Contusion of left wrist, initial encounter (principal); S60.221A Contusion of right hand, initial encounter; S60.512A Abrasion of left hand, initial encounter; S60.812A Abrasion of left wrist, initial encounter; W22.8XXA Striking against or struck by other objects, initial encounter; Z23 Encounter for immunization; I11.0 Hypertensive heart disease with heart failure; I50.22 Chronic systolic (congestive) heart failure; M17.0 Bilateral primary osteoarthritis of knee; Z85.828 Personal history of other malignant neoplasm of skin; Z86.16 Personal history of COVID-19
CPT/HCPCS: 73110; 73130; 90471; 90715; 99213; G0463